=== PATIENT | male | born 1925 | race Caucasian/White ===

== ENCOUNTER 2016-03-18 15:08 | Inpatient (IN) | payer MEDICARE ==
[~2016-03-18] VITALS: Ht 175.3 cm; Wt 90.5 kg
[~2016-03-18 15:08] MED LIST: ALPH0.1S RIGHT EYE; ASPI1TAB7; ATOR40TA PO; AVOD0.5C PO; CALCTAB70; EVENCAP2 PO; FLUT1SPR9; FOLITAB5; ISOS30TA3 PO; LEVO112T2 PO; METF-324 PO; TIMO0.5S4 EACH EYE; TRAZ50TA4 PO; VITA400C28; [UNRECOGNIZED DRUG - OTHER] XX
[2016-03-18] MEDS ORDERED: MORPHINE SULFATE 4 MG/ML INJ IV PUSH ONE ×2 (15:15→17:15)
[2016-03-18] MEDS ORDERED: ONDANSETRON HCL 4 MG/2 ML VIAL IVP ONE (15:15)
[2016-03-18] MEDS ORDERED: SODIUM CHLORIDE 0.9% FLUSH 5 ML FLUSH IVF PRN (15:15)
[2016-03-18 15:16] VITALS: BP 144/73; PULSE 75; RESP 15; TEMP 97.5; O2SAT 93
--- NOTE | 2016-03-18 15:48 | PD ---
HPI . Abdominal pain Chief Complaint: Abdominal Pain Time Seen by Provider: 15:11 Travel History International Travel<30 days: No Contact w/Intl Traveler<30days: No Traveled to known affect area: No History of Present Illness HPI Patient presents by [facility] chief complaint of abdominal pain. Patient states that it started after eating lunch today and has gotten progressively worse. He describes cramping. He has had some associated nausea and vomiting. He denies any diarrhea or change in bowel habits. He has not been running a fever. He denies a previous similar history. He denies any urinary tract symptoms such as area, frequency or urgency. PFSH Social History Tobacco Use: No Allergies-Medications (Allergen,Severity, Reaction): Coded Allergies: No Known Allergies (Unverified , 03/20/15) Reported Meds & Prescriptions Reported Meds & Active Scripts Active Isosorbide Mononitrate Er (Isosorbide Mononitrate) 30 Mg Tab 30 Mg PO DAILY Flonase Allergy Relief (Fluticasone Propionate (Nasal)) 50 Mcg/Act Spr 2 [place] NA DAILY Atorvastatin 40 mg (Atorvastatin Calcium) 40 Mg Tab 40 Mg PO HS Metformin ER 24 HR (Metformin HCl) 1,000 Mg Tab 1,000 Mg PO DAILY Levothyroxine 112 mcg (Levothyroxine Sodium) 112 Mcg Tab 1 Tab PO DAILY Avodart (Dutasteride) 0.5 Mg Cap 0.5 Mg PO HS [Spa ] 1 Units XX DAILY Timolol Maleate Ophthalmi (Timolol Maleate) 0.5 % Magy 1 Drop EACH EYE DAILY Trazodone Hcl (Trazodone HCl) 50 Mg Tab 50 Mg PO HS PRN Alphagan P (Brimonidine Tartrate) 0.1 % Magy 1 Drop RIGHT EYE BID Reported Evening [place] (Evening [place] Oil) 500 Mg Cap 1,000 Mg PO Vitamin D (Cholecalciferol) 400 Unit Cap WEEKLY Calcium 600 + D (Calcium Carbonate-Vitamin D) + D Tab DAILY Folic Acid Xtra (Folic Acid-Vit B2-Vit B6-Vit B) Xtra Tab 800 Mcg DAILY Aspirin 81 mg Tab (Aspirin) 81 Mg Tab DAILY Review of Systems Except as stated in HPI: all other systems reviewed are Neg General / Constitutional: No: Fever, Chills Cardiovascular: No: Chest Pain or Discomfort Respiratory: No: Shortness of Breath Gastrointestinal: Positive: Nausea, Vomiting, Abdominal Pain, No: Diarrhea, Constipation, Changes in Bowel Habits Genitourinary: No: Urgency, Frequency, Dysuria Physical Exam Narrative GENERAL: This is an elderly man who appears in obvious pain. SKIN: Warm and dry. HEAD: Atraumatic. Normocephalic. EYES: Pupils equal and round. ENT: No nasal bleeding or discharge. Mucous membranes pink and moist. NECK: Trachea midline. Neck supple. CARDIOVASCULAR: Regular rate and rhythm. RESPIRATORY: No accessory muscle use. Lungs are clear with good air movement throughout. GASTROINTESTINAL: Abdomen has a palpable, tender mass in the right upper quadrant. It is not pulsatile. I do not hear any unusual bowel sounds over the mass. MUSCULOSKELETAL: No obvious deformities. 1+ edema. NEUROLOGICAL: Awake and alert. No obvious cranial nerve deficits. Motor grossly within normal limits. Normal speech. PSYCHIATRIC: Appropriate mood and affect. Data Data Last Documented VS Vital Signs Date Time Temp Pulse Resp B/P Pulse Ox O2 Delivery O2 Flow Rate FiO2 03/18/16 15:16 97.5 75 15 144/73 93 Orders Complete Blood Count With Diff (03/18/16 15:11) Comprehensive Metabolic Panel (03/18/16 15:11) Lipase (03/18/16 15:11) Lactic Acid (03/18/16 15:11) Prothrombin Time / Inr (Pt) (03/18/16 15:11) Urinalysis - C+S If Indicated (03/18/16 15:11) Ct Abd/Pel W/O Iv Contrast (03/18/16 15:11) Iv Access Insert/Monitor (03/18/16 15:11) Ecg Monitoring (03/18/16 15:11) Oximetry (03/18/16 15:11) NPO (03/18/16 15:11) Morphine Inj (Morphine Inj) (03/18/16 15:15) Ondansetron Inj (Zofran Inj) (03/18/16 15:15) Sodium Chloride 0.9% Flush (Ns Flush) (03/18/16 15:15) Electrocardiogram (03/18/16 15:11) ^ Saline Lock (03/18/16 15:14) Sodium Chlor 0.9% 1000 Ml Inj (Ns 1000 M (03/18/16 17:15) Morphine Inj (Morphine Inj) (03/18/16 17:15) Insert Ng Tube (03/18/16 17:13) Admit Order (Ed Use Only) (03/18/16 17:37) Labs Laboratory Tests Test 03/18/16 15:25 White Blood Count 14.4 TH/MM3 Red Blood Count 4.63 MIL/MM3 Hemoglobin 14.2 GM/DL Hematocrit 41.6 % Mean Corpuscular Volume 89.8 FL Mean Corpuscular Hemoglobin 30.6 PG Mean Corpuscular Hemoglobin 34.0 % Concent Red Cell Distribution Width 13.4 % Platelet Count 166 TH/MM3 Mean Platelet Volume 7.6 FL Neutrophils (%) (Auto) 86.1 % Lymphocytes (%) (Auto) 9.3 % Monocytes (%) (Auto) 4.2 % Eosinophils (%) (Auto) 0.2 % Basophils (%) (Auto) 0.2 % Neutrophils # (Auto) 12.4 TH/MM3 Lymphocytes # (Auto) 1.3 TH/MM3 Monocytes # (Auto) 0.6 TH/MM3 Eosinophils # (Auto) 0.0 TH/MM3 Basophils # (Auto) 0.0 TH/MM3 CBC Comment DIFF FINAL Differential Comment Prothrombin Time 11.4 SEC Prothromb Time International 1.0 RATIO Ratio Sodium Level 134 MEQ/L Potassium Level 4.0 MEQ/L Chloride Level 97 MEQ/L Carbon Dioxide Level 30.9 MEQ/L Anion Gap 6 MEQ/L Blood Urea Nitrogen 14 MG/DL Creatinine 0.71 MG/DL Estimat Glomerular Filtration 104 ML/MIN Rate Random Glucose 195 MG/DL Lactic Acid Level 1.4 mmol/L Calcium Level 8.5 MG/DL Total Bilirubin 1.2 MG/DL Aspartate Amino Transf 21 U/L (AST/SGOT) Alanine Aminotransferase 40 U/L (ALT/SGPT) Alkaline Phosphatase 71 U/L Total Protein 6.4 GM/DL Albumin 3.6 GM/DL Lipase 132 U/L MDM Medical Decision Making Medical Screen Exam Complete: Yes Emergency Medical Condition: Yes Medical Record Reviewed: Yes (the patient has actually never been in the emergency department or the hospital before. He's only been seen in the clinics.) Interpretation(s) EKG shows a sinus rhythm with a right bundle branch block. 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 This is unchanged from previous. There is no acute ischemic or injury. Differential Diagnosis Differential diagnosis of abdominal pain includes but is not limited to gastritis, pancreatitis, hepatitis, gastroenteritis, constipation, urinary retention, UTI, peptic ulcer disease, diverticulitis or appendicitis Narrative Course Elderly man presents with the acute onset of abdominal pain today. He has a palpable mass in the right upper quadrant. I suspect that this is a hernia. 5:[address] scan been reviewed. It shows: "There has been previous partial gastrectomy. There is moderate dilation of multiple small bowel loops mainly clustered in the right upper quadrant and in the pelvis. The colon is decompressed and there are also some nondilated pelvic small bowel loops. There appears to be some focal angular twisting or kinking of small bowel in the central abdomen with appearance most suggestive of either an adhesion or internal hernia producing obstruction. There is a small volume of free fluid. No evidence of pneumoperitoneum." I will go ahead and consult surgery. The patient remains in the ambulance entrance where we have very little staff to care for him. CBC has an H&H of 14.2 and 41.6. White blood count is 14.4. Chemistries are unremarkable. Lactic acid is 1.4. Critical Care Narrative Aggregate critical care time was 30 minutes. Time to perform other separately billable procedures was not included in the critical care time. My time did not include minutes spent treating any other patients simultaneously or on activities that did not directly contribute to the patient's treatment. The services I provided to this patient were to treat and/or prevent clinically significant deterioration that could result in: Cardiovascular collapse if this mass turns out to be a AAA I provided critical care services requiring my management, as noted below: Chart data review, documentation time, medication orders and management, vital sign assessments/reviewing monitor data, ordering and reviewing lab tests, ordering and interpreting/reviewing x-rays and diagnostic studies, care of the patient and discussion of the patient with the admitting physicians. Physician Communication Physician Communication 5:[address] Cordon has been consult. He requested hospitalist admission with him as a student union consultant. Dr. Verma has subsequently admitted the patient. Diagnosis Primary Impression: Small bowel obstruction Admitting Information Admitting Physician Requests: Admit Condition: Stable Ayana Sanchez MD Mar 18, 2016 15:48
[2016-03-18 15:52] LABS: AUTOMATED NEUTROPHIL # 12.4 TH/MM3 (1.8-7.7); BASOPHIL % 0.2 % (0.0-2.0); EOSINOPHIL % 0.2 % (0.0-4.0); HEMATOCRIT 41.6 % (39.0-51.0); HEMO FLAGS DIFF FINAL; LYMPH % 9.3 % (9.0-44.0); LYMPHOCYTE # 1.3 TH/MM3 (1.0-4.8); MEAN CELL VOLUME 89.8 FL (80.0-100.0); MEAN CORPUSCULAR HEMOGLOBIN 30.6 PG (27.0-34.0); MONO % 4.2 % (0.0-8.0); NEUT % 86.1 % (16.0-70.0); PLATELET COUNT 166 TH/MM3 (150-450); RED BLOOD COUNT 4.63 MIL/MM3 (4.50-5.90); RED CELL DISTRIBUTION WIDTH 13.4 % (11.6-17.2); WHITE BLOOD COUNT 14.4 TH/MM3 (4.0-11.0)
[2016-03-18 16:10] LABS: ANION GAP 6 MEQ/L (5-15); AST (GOT) 21 U/L (15-37); BICARBONATE 30.9 MEQ/L (21.0-32.0); BLOOD UREA NITROGEN 14 MG/DL (7-18); CHLORIDE 97 MEQ/L (98-107); GLOMERULAR FILTRATION RATE 104 ML/MIN (>89); PROTHROMBIN TIME - PATIENT 11.4 SEC (9.8-11.6); SODIUM (NA) 134 MEQ/L (136-145)
[2016-03-18 16:14] LABS: ALKALINE PHOSPHATASE 71 U/L (45-117); ALT (GPT) 40 U/L (12-78); TOTAL BILIRUBIN ADULT 1.2 MG/DL (0.2-1.0)
--- NOTE | 2016-03-18 16:57 | RADRPT ---
EXAM DATE/TIME: 03/18/2016 16:24 [facility] COMPARISON: No previous studies available for comparison. INDICATIONS : Epigastric pain and RUQ mass. Eval aorta. ORAL CONTRAST: No oral contrast ingested. RADIATION DOSE: 10.98 CTDIvol (mGy) MEDICAL HISTORY : Carcinoma, gastric. SURGICAL HISTORY : Stomach surgery to remove cancer. ENCOUNTER: Initial ACUITY: 1 day PAIN SCALE: 6/10 LOCATION: Right upper quadrant TECHNIQUE: Volumetric scanning of the abdomen and pelvis was performed. Using automated exposure control and ad justment of the mA and/or kV according to patient size, radiation dose was kept as low as reasonably achievable to obtain optimal diagnostic quality images. FINDINGS: LOWER LUNGS: The visualized lower lungs are clear. LIVER: Homogeneous density without lesion. There is no dilation of the biliary tree. Gallbladder surgically absent.. SPLEEN: Normal size without lesion. PANCREAS: Within normal limits. KIDNEYS: Exophytic cyst arising from the posterior apex of the left kidney. No evidence of stone or hydronephr osis. ADRENAL GLANDS: Within normal limits. VASCULAR: There is no aortic aneurysm. BOWEL/MESENTERY: There has been previous partial gastrectomy. There is moderate dilation of multiple small bowel loops mainly clustered in the right upper quadrant and in the pelvis. The colon is decompressed and there are also some nondilated pelvic small bowel loops. There appears to be some focal angular twisting or kinking of small bowel in the central abdomen with appearance most suggestive of either an adhesion or internal hernia producing obstruction. There is a small volume of free fluid. No evidence of pneum operitoneum. ABDOMINAL WALL: Extensive previous ventral mesh hernia repair RETROPERITONEUM: There is no lymphadenopathy. BLADDER: No wall thickening or mass. REPRODUCTIVE: Within normal limits. INGUINAL: There is no lymphadenopathy or hernia. MUSCULOSKELETAL: Degenerative changes in the spine. Previous kyphoplasty. CONCLUSION: Small bowel obstruction. Berlin Metzger MD on March 18, 2016 at 16:48 Board Certified Radiologist. This report was verified electronically.
[2016-03-18] MEDS ORDERED: SODIUM CHLOR 0.9% 1000 ML INJ 1,000 ML IV ONE (17:15)
--- NOTE | 2016-03-18 18:42 | HHI.HP ---
[facility] Unknown Admission Diagnosis small bowel obstruction Diagnoses: (1) Small bowel obstruction (2) Diabetes Chief Complaint: Abdominal pain Travel History International Travel<30 Days: No Contact w/Intl Traveler <30 Da: No Traveled to Known Affected Are: No History of Present Illness 89-year-old male with a history of diabetes, prior abdominal surgeries was brought to the ED for evaluation of an acute onset of abdominal pain patient rated 10 out of 10 in intensity him a which started after eating breakfast today and got progressively worse throughout the day. He had episode of nausea along with vomiting however nonbilious. There was no associated chest pain or shortness of breath. He denies any bowel change although today he didn't have any bowel movements and patient denies any flatus. There is no GI bleed. Review of Systems Other Order 12 systems are negative except for the one mentioned in history of present illness Past Family Social History Past Medical History right eye hit by a baseball which caused a traumatic cataract and right eye iris fixed dilated position 1979 bilateral macular degeneration 1997 bilateral peripheral neuropathy 2001 diabetes 2001 hypothyroidism sepsis 2006 prostate cancer 2013 involving 5% of the prostate basal cell carcinoma 2013 Bilateral knee osteoarthritis Past Surgical History tonsillectomy 1930 inguinal hernia repair 1946 basal cell carcinoma 1967, 1999 duodenal stomach ulcer removal, vagotomy, and cholecystectomy 1974 direct inguinal hernia repair 1975 traumatic cataract surgery in 1979 (see above) right hydrocele surgery 1982 cataract surgery on left is lens implant 1995 multiple benign growth removed during past colonoscopies laser eye surgery for macular degeneration 1999 perforated gastric ulcer which was found to be gastric cancer 2002. Received chemotherapy (x6), and abbreviation (x5 weeks). gastric ulcer removal, removal of two lymph nodes with metastatic disease 2002 abdominal hernia repair with mesh 2003 and revision due to bowel obstruction later 2004 balloon kyphoplasty L2 2004 bilateral eye pressure releasing surgery 2005 Removal of benign bladder mass 2014 Reported Medications Isosorbide Mononitrate Er (Isosorbide Mononitrate) 30 Mg Tab 30 Mg PO DAILY Flonase Allergy Relief (Fluticasone Propionate (Nasal)) 50 Mcg/Act Spr 2 [place] NA DAILY Atorvastatin 40 mg (Atorvastatin Calcium) 40 Mg Tab 40 Mg PO HS Metformin ER 24 HR (Metformin HCl) 1,000 Mg Tab 1,000 Mg PO DAILY Levothyroxine 112 mcg (Levothyroxine Sodium) 112 Mcg Tab 1 Tab PO DAILY Avodart (Dutasteride) 0.5 Mg Cap 0.5 Mg PO HS [Spa ] 1 Units XX DAILY Timolol Maleate Ophthalmi (Timolol Maleate) 0.5 % Magy 1 Drop EACH EYE DAILY Trazodone Hcl (Trazodone HCl) 50 Mg Tab 50 Mg PO HS PRN Alphagan P (Brimonidine Tartrate) 0.1 % Magy 1 Drop RIGHT EYE BID Reported Evening [place] (Evening [place] Oil) 500 Mg Cap 1,000 Mg PO Vitamin D (Cholecalciferol) 400 Unit Cap WEEKLY Calcium 600 + D (Calcium Carbonate-Vitamin D) + D Tab DAILY Folic Acid Xtra (Folic Acid-Vit B2-Vit B6-Vit B) Xtra Tab 800 Mcg DAILY Aspirin 81 mg Tab (Aspirin) 81 Mg Tab DAILY Allergies: Coded Allergies: No Known Allergies (Unverified , 03/18/16) Family History No family history of cancer, diabetes Social History Denies any alcohol, tobacco or illicit drug intake. Physical Exam Vital Signs Vital Signs Date Time Temp Pulse Resp B/P Pulse Ox O2 Delivery O2 Flow Rate FiO2 03/18/16 15:16 97.5 75 15 144/73 93 Physical Exam GENERAL: Elderly man in mild distress SKIN: No rashes, ecchymoses or lesions. Cool and dry. HEAD: Atraumatic. Normocephalic. No temporal or scalp tenderness. EYES: Pupils equal round and reactive. Extraocular motions intact. No scleral icterus. No injection or drainage. ENT: Nose without bleeding, purulent drainage or septal hematoma. Throat without erythema, tonsillar hypertrophy or exudate. Uvula midline. Airway patent. NECK: Trachea midline. No JVD or lymphadenopathy. Supple, nontender, no meningeal signs. CARDIOVASCULAR: Regular rate and rhythm with II/ LILY RESPIRATORY: Clear to auscultation. Breath sounds equal bilaterally. No wheezes , rales, or rhonchi. GASTROINTESTINAL: Abdomen soft, non-tender, nondistended. No hepato-splenomegaly , or palpable masses. No guarding. Hypoactive bowel sounds MUSCULOSKELETAL: Extremities without clubbing, cyanosis, or edema. No joint tenderness, effusion, or edema noted. No calf tenderness. Negative Homans sign bilaterally. NEUROLOGICAL: Awake and alert. Cranial nerves II through XII intact. Motor and sensory grossly within normal limits. Five out of 5 muscle strength in all muscle groups. Normal speech. Laboratory Laboratory Tests Test 03/18/16 15:25 White Blood Count 14.4 Red Blood Count 4.63 Hemoglobin 14.2 Hematocrit 41.6 Mean Corpuscular Volume 89.8 Mean Corpuscular Hemoglobin 30.6 Mean Corpuscular Hemoglobin 34.0 Concent Red Cell Distribution Width 13.4 Platelet Count 166 Mean Platelet Volume 7.6 Neutrophils (%) (Auto) 86.1 Lymphocytes (%) (Auto) 9.3 Monocytes (%) (Auto) 4.2 Eosinophils (%) (Auto) 0.2 Basophils (%) (Auto) 0.2 Neutrophils # (Auto) 12.4 Lymphocytes # (Auto) 1.3 Monocytes # (Auto) 0.6 Eosinophils # (Auto) 0.0 Basophils # (Auto) 0.0 CBC Comment DIFF FINAL Differential Comment Prothrombin Time 11.4 Prothromb Time International 1.0 Ratio Sodium Level 134 Potassium Level 4.0 Chloride Level 97 Carbon Dioxide Level 30.9 Anion Gap 6 Blood Urea Nitrogen 14 Creatinine 0.71 Estimat Glomerular Filtration 104 Rate Random Glucose 195 Lactic Acid Level 1.4 Calcium Level 8.5 Total Bilirubin 1.2 Aspartate Amino Transf 21 (AST/SGOT) Alanine Aminotransferase 40 (ALT/SGPT) Alkaline Phosphatase 71 Total Protein 6.4 Albumin 3.6 Lipase 132 Result Diagram: 03/18/16 1525 03/18/16 1525 Imaging Last Impressions Abdomen/Pelvis CT 03/18/16 1511 Signed Impressions: Service Date/Time: March 16:24 - CONCLUSION: Small bowel obstruction. Berlin Metzger MD Assessment and Plan Problem List: (1) Small bowel obstruction ICD Code: K56.69 Status: Acute (2) Diabetes ICD Code: E11.9 Status: Acute Assessment and Plan 89-year-old male with Small bowel obstruction: CT abdomen noted and reviewed by me with finding of Small bowel obstruction. Consult general surgery. Keep nothing by mouth, IV fluid hydration, and place NG tube. Start IV antibiotics including Flagyl and Levaquin. IV Pain medication/antiemetic when necessary Leukocytosis: Secondary to above process and treat as such Diabetes type 2: Hold oral hypoglycemic agent, start low sliding scale insulin with fingerstick blood glucose monitoring Hypertension: Vasotec when necessary, will resume oral antihypertensive 1 patient able to take by mouth Other chronic medical conditions: Resume outpatient medication 1 patient able to tolerate by mouth DVT prophylaxis: Bilateral SCDs GI prophylaxis: PPI Code Status Full code Discussed Condition With Patient, ED physician Physician Certification 2 Midnight Certification Type: Admission for Inpatient Services Order for Inpatient Services The services are ordered in accordance with Medicare regulations or non- Medicare payer requirements, as applicable. In the case of services not specified as inpatient-only, they are appropriately provided as inpatient services in accordance with the 2-midnight benchmark. Estimated LOS (days): 2 days is the estimated time the patient will need to remain in the hospital, assuming treatment plan goals are met and no additional complications. Post-Hospital Plan: Not yet determined Roland Verma MD Mar 18, 2016 18:42
[2016-03-18] MEDS ORDERED: ACETAMINOPHEN 325 MG TAB PO PRN (18:45)
[2016-03-18] MEDS ORDERED: NALOXONE HCL 0.4 MG/ML AMP IV PRN (18:45)
[2016-03-18] MEDS ORDERED: SODIUM CHLORIDE 0.9% FLUSH 5 ML FLUSH FLUSH PRN (18:45)
[2016-03-18] MEDS ORDERED: GLUCAGON 1 MG/ML VIAL OTHER PRN (18:45)
[2016-03-18] MEDS ORDERED: DEXTROSE 50% IN WATER 50 ML VIAL(D50) IV PUSH PRN (18:45)
[2016-03-18] MEDS ORDERED: ENALAPRILAT 1.25 MG/ML VIAL IV PUSH PRN (19:00)
[2016-03-18] MEDS ORDERED: FLUT50SP EACH NARE (21:07)
[2016-03-18] MEDS ORDERED: SYNT112T PO (21:07)
[2016-03-18] MEDS ORDERED: ISOS20TA PO (21:07)
[2016-03-18] MEDS ORDERED: CICL8KIT3 TOPICAL (21:07)
[2016-03-18] MEDS ORDERED: FLUO20CA4 PO (21:07)
[2016-03-18] MEDS ORDERED: TIMO0.254 RIGHT EYE (21:07)
[2016-03-18] MEDS ORDERED: DUTA1CAP2 PO (21:07)
[2016-03-18] MEDS ORDERED: ALPH0.1S RIGHT EYE (21:07)
[2016-03-18 21:11] VITALS: BP 130/69; PULSE 86; RESP 14; TEMP 98; O2SAT 98
[2016-03-18] MEDS ORDERED: PRESCAP5 PO (21:11)
[2016-03-18] MEDS ORDERED: FOLI1CAP7 PO (21:11)
[2016-03-18] MEDS ORDERED: ASPI-110 PO (21:11)
[2016-03-18] MEDS ORDERED: D400400C (21:11)
[2016-03-18] MEDS ORDERED: CALCTAB23 PO (21:11)
[2016-03-18] MEDS ORDERED: EVEN500C3 PO (21:11)
[2016-03-18] MEDS ORDERED: SAW160TA PO (21:11)
[2016-03-18] MEDS: SODIUM CHLORIDE 0.9% FLUSH 5 ML FLUSH FLUSH SCH (21:38)
[2016-03-18] MEDS: SODIUM CHLOR 0.9% 1000 ML INJ 1,000 ML IV SCH (21:38)
[2016-03-18] MEDS: INSULIN ASPART SUPPLEMENTAL SCALE SQ SCH (21:38)
[2016-03-18] MEDS: metroNIDAZOLE 500 MG INJ 100 ML IV SCH (21:39)
[2016-03-18 22:10] VITALS: BP 108/66; PULSE 62; RESP 12; O2SAT 96
[2016-03-18 23:00] VITALS: BP 112/68; PULSE 82; RESP 16; O2SAT 100
--- NOTE | 2016-03-18 23:20 | MB ---
cc: ELIUD SALCIDO MD DATE OF CONSULTATION 03/18/16 REASON FOR CONSULTATION Small bowel obstruction. HISTORY OF PRESENT ILLNESS The patient is an 89-year-old male who was brought in by [facility] for increasing abdominal pain, nausea and vomiting. The patient reports having a bowel movement yesterday. He has had no previous history of this. The patient has undergone CT scan which demonstrates a small bowel obstruction in the right upper quadrant either due to an adhesion for an internal hernia. SOCIAL HISTORY The patient does not smoke or drink. ALLERGIES He has no known allergies. MEDICATIONS 1. Isosorbide mononitrate 30 mg q. day. 2. Flonase 2 sprays q. day. 3. Atorvastatin 40 mg q.h.s. 4. Metformin ER 24 hour 1000 mg daily 5. Levothyroxine 112 mcg daily. 6. Avodart 0.5 mg q.h.s. 7. Timolol 0.5% solution each eye daily. 8. Trazodone 50 mg q.h.s. 9. Alphagan 0.1% in the right eye b.i.d. 10. Aspirin 81 mg daily. 11. Calcium 600 plus D daily 12. Evening primrose oil 1000 mg daily. REVIEW OF SYSTEMS The patient has had previous abdominal surgeries. He does not remember exactly what they were, but the ER physician informed me that he had had mesh placement in the past. PAST MEDICAL HISTORY 1. Macular degeneration 2. Peripheral neuropathy, 3. Diabetes, 4. Hypothyroidism, 5. Hypercholesterolemia PAST SURGICAL HISTORY Included by Dr. Verma and include 1. Tonsillectomy 0 2. Inguinal hernia repair 1945, 3. Basal cell carcinomas removed 1966 and 1999 4. Vagotomy and partial gastrectomy in 1974 with cholecystectomy 5. Inguinal hernia repair 1975 6. Traumatic cataract surgery 1979 7. Right hydrocelectomy 1982, 8. Left cataract surgery with lens implant 1995 9. Perforated gastric ulcer which was found to be a gastric cancer in 2002 with chemotherapy and radiation 10. Gastric ulcer removal with removal of two lymph nodes and metastatic disease in 2002 11. Abdominal hernia repair with mesh in 2003 and revision due to bowel obstruction later 2003. 12. Removal of benign bladder mass in 2013. PHYSICAL EXAMINATION GENERAL: A male who is resting quietly in only mild distress. VITAL SIGNS: BP 130/69, pulse 86, respirations 14, temperature 98.0, 98% saturation on room air. HEENT: Right eye pupil is fixed. NECK: Supple. CHEST: Clear to auscultation. CARDIAC: Regular rate and rhythm. ABDOMEN: Soft but distended. There are two longitudinal incisions present and a hernia in the longitudinal incision to the right of midline. This does not appear to be incarcerated. The patient is tender to palpation diffusely but not intensely cell. There is some guarding as well. The patient does not have a Lassiter or nasogastric tube in at this time. LABORATORY DATA WBCs of 14.4, platelets are normal at 166,000. Chemistries demonstrate BUN of 14, creatinine of 0.7, potassium 4.0. Liver function tests have slightly elevated bilirubin of 1.2, AST, ALT and alkaline phosphatase are all within normal limits; lipase is normal at 132. IMAGING STUDIES Imaging demonstrates moderate dilation in multiple small bowel loops clustered in the right upper quadrant and in the pelvis. There may be some angling or kinking of the small bowel in the central abdomen suggestive of either an adhesion or an internal hernia. ASSESSMENT Small bowel obstruction likely secondary to adhesions or internal hernia. PLAN Nasogastric tube need to be placed this evening as it has still not been placed and IV fluids started. Would give the patient bowel rest and reevaluate in the morning. If he has continued persistent elevated white count with shift, worsening symptoms or failure to progress, he may require exploration. The patient may also have recurrent tumor in which case simple bypass would be the best treatment for him. We will follow with you. MD VALERY Diaz/ /10:51 PM /11:04 PM
[2016-03-19] VITALS (11 sets, daily range): BP systolic 92–120; BP diastolic 46–70; PULSE 78–91; RESP 14–18; TEMP 96.9–98.1; O2SAT 93–99
[2016-03-19 00:09] LABS: BLOOD, URINE MOD (NEG); CALCIUM OXALATE CRYSTALS,URINE OCC /hpf; COMMENT (UR) CULTURE INDICATED; CULTURE IF INDICATED CULTURE INDICATED; GLUCOSE,URINE 300 mg/dL (NEG); HYALINE CAST, URINE 17 /lpf (RARE); KETONE, URINE 10 mg/dL (NEG); MUCUS URINE MOD /lpf (OCC); NITRITE,URINE NEG (NEG); RENAL EPITHELIAL CELLS 4 /hpf; SQUAMOUS EPITHELIAL CELL URINE 8 /hpf (0-5); TRANSITIONAL EPI CELLS, URINE 1 /hpf; URINE COLOR ORANGE (YELLW/STRAW)
[2016-03-19 00:15] LABS: BACTERIA, URINE MANY /hpf
[2016-03-19] MEDS: LEVOFLOXACIN 500 MG PREMIX INJ 100 ML IV SCH ×2 (00:43→20:49)
[2016-03-19] MEDS: MORPHINE SULFATE 4 MG/ML INJ IV PRN ×2 (00:44→10:58)
[2016-03-19] MEDS: ONDANSETRON HCL 4 MG/2 ML VIAL IVP PRN ×2 (00:45→12:51)
--- NOTE | 2016-03-19 02:33 | RADRPT ---
EXAM DATE/TIME: 03/19/2016 01:53 [facility] COMPARISON: No previous studies available for comparison. INDICATIONS : Evaluate for NG tube placement. MEDICAL HISTORY : Carcinoma, gastric. SURGICAL HISTORY : Stomach surgery to remove cancer. ENCOUNTER: Subsequent ACUITY: 1 day PAIN SCORE: Non-responsive. LOCATION: Abdomen FINDINGS: Chest tube tip is projected in the left upper quadrant and the side-port is approximately at the leve l of the GE junction. Vertebroplasty cement at the L2 level. The visualized lower lungs are clear. Gas and a few loops of small bowel. CONCLUSION: Gastric tube tip within the fundal region of the stomach. Jian Kessler MD on March 19, 2016 at 2:30 Board Certified Radiologist. This report was verified electronically.
[2016-03-19 05:38] LABS: AUTOMATED NEUTROPHIL # 17.7 TH/MM3 (1.8-7.7); HEMATOCRIT 45.5 % (39.0-51.0); HEMO FLAGS DIFF FINAL; LYMPH % 6.4 % (9.0-44.0); LYMPHOCYTE # 1.3 TH/MM3 (1.0-4.8); MEAN CORPUSCULAR HEMOGLOBIN 30.3 PG (27.0-34.0); MEAN CORPUSCULAR HGB CONC 33.7 % (32.0-36.0); MONO % 8.7 % (0.0-8.0); NEUT % 84.9 % (16.0-70.0); PLATELET COUNT 176 TH/MM3 (150-450); RED BLOOD COUNT 5.05 MIL/MM3 (4.50-5.90); RED CELL DISTRIBUTION WIDTH 13.4 % (11.6-17.2); WHITE BLOOD COUNT 20.9 TH/MM3 (4.0-11.0)
[2016-03-19] MEDS: LEVOTHYROXINE SODIUM 112 MCG TAB PO SCH (05:51)
[2016-03-19] MEDS: metroNIDAZOLE 500 MG INJ 100 ML IV SCH ×3 (05:55→20:50)
[2016-03-19 06:11] LABS: ALKALINE PHOSPHATASE 67 U/L (45-117); ALT (GPT) 35 U/L (12-78); ANION GAP 10 MEQ/L (5-15); AST (GOT) 24 U/L (15-37); BICARBONATE 25.9 MEQ/L (21.0-32.0); BLOOD UREA NITROGEN 29 MG/DL (7-18); CHLORIDE 99 MEQ/L (98-107); GLOMERULAR FILTRATION RATE 45 ML/MIN (>89); SODIUM (NA) 135 MEQ/L (136-145); TOTAL BILIRUBIN ADULT 1.4 MG/DL (0.2-1.0)
--- NOTE | 2016-03-19 06:47 | RADRPT ---
EXAM DATE/TIME: 03/19/2016 06:16 [facility] COMPARISON: ABDOMEN SINGLE VIEW, March 19, 2016, 1:53. INDICATIONS : Distention. MEDICAL HISTORY : Carcinoma, gastric. SURGICAL HISTORY : Stomach surgery to remove a cancer. ENCOUNTER: Subsequent ACUITY: 2 days PAIN SCORE: Non-responsive. LOCATION: abdomen, all quadrants. FINDINGS: There are several dilated loops of small bowel located in the lower abdomen midline and on the left s james which are more prominent on KUB performed several hours ago. The loops measure up to 5 cm in portia meter. Vertebroplasty cement at the L2 level. Gastric tube tip projects over the fundal region of t he stomach. CONCLUSION: Changed appearance to several loops of small bowel in the low abdomen, now dilated and measuring up t o 5 cm in diameter. Jian Kessler MD on March 19, 2016 at 6:44 Board Certified Radiologist. This report was verified electronically.
[2016-03-19] MEDS: ISOSORBIDE MONONITRATE 20 MG TAB PO SCH (07:00)
[2016-03-19] MEDS: INSULIN ASPART SUPPLEMENTAL SCALE SQ SCH ×4 (07:00→20:49)
[2016-03-19] MEDS: FLUoxetine HCL 20 MG CAP PO SCH (09:00)
[2016-03-19] MEDS: SODIUM CHLORIDE 0.9% FLUSH 5 ML FLUSH FLUSH SCH ×2 (09:00→20:48)
[2016-03-19] MEDS: TIMOPTIC XE RIGHT EYE SCH (09:00)
[2016-03-19] MEDS: BRIMONIDINE TARTRATE 0.15% OPHT SOLN 5 ML BTL RIGHT EYE SCH ×2 (09:00→21:00)
[2016-03-19] MEDS: LACTOBACILLUS ACIDOPHILUS TAB PO SCH ×2 (09:00→20:49)
--- NOTE | 2016-03-19 09:13 | HHI.PR ---
Subjective Remarks Follow-up small bowel obstruction 03/19/16-patient seen and examined, complains of mild abdominal pain. NG tube in place. Worsening white blood cell counts and renal function. Son by the bedside. Objective Vitals Vital Signs Date Time Temp Pulse Resp B/P Pulse Ox O2 Delivery O2 Flow Rate FiO2 03/19/16 07:27 91 16 92/53 95 Room Air 03/19/16 05:57 83 17 102/70 96 Nasal Cannula 2 03/19/16 05:08 80 16 94/50 96 Nasal Cannula 2 03/19/16 04:10 78 16 103/55 95 Nasal Cannula 2 03/19/16 02:05 82 14 98/58 98 Nasal Cannula 2 03/19/16 00:29 84 14 106/66 99 Room Air 03/18/16 23:00 82 16 112/68 100 Room Air 03/18/16 22:10 62 12 108/66 96 Room Air 03/18/16 21:11 98.0 86 14 130/69 98 Room Air 03/18/16 15:16 97.5 75 15 144/73 93 Result Diagram: 03/19/16 0459 03/19/16 0459 Imaging Last Impressions Abdomen X-Ray 03/19/16 0600 Signed Impressions: Service Date/Time: Saturday, March 19, 2016 06:16 - CONCLUSION: Changed appearance to several loops of small bowel in the low abdomen, now dilated and measuring up to 5 cm in diameter. Jian Kessler MD Abdomen/Pelvis CT 03/18/16 1511 Signed Impressions: Service Date/Time: March 16:24 - CONCLUSION: Small bowel obstruction. Berlin Metzger MD Objective Remarks GENERAL: Mild distress with NG tube in place SKIN: Warm and dry. HEAD: Normocephalic. EYES: No scleral icterus. No injection or drainage. NECK: Supple, trachea midline. No JVD or lymphadenopathy. CARDIOVASCULAR: Regular rate and rhythm with II/ LILY RESPIRATORY: Breath sounds equal bilaterally. No accessory muscle use. GASTROINTESTINAL: Abdomen soft, + tender, nondistended. Hypoactive bowel sounds MUSCULOSKELETAL: No cyanosis, or edema. BACK: Nontender without obvious deformity. No CVA tenderness. A/P Problem List: (1) Small bowel obstruction ICD Code: K56.69 Status: Acute (2) Diabetes ICD Code: E11.9 Status: Acute Assessment and Plan 89-year-old male with Small bowel obstruction: CT abdomen with finding of Small bowel obstruction. Repeat flat and upright this morning with finding of Changed appearance to several loops of small bowel in the low abdomen, now dilated and measuring up to 5 cm in diameter. Appreciate input from general surgery may consider exploratory lap with NICOLE today 03/19/16 as patient with worsening condition. Keep nothing by mouth with NG tube in place, IV fluid hydration. Continue IV antibiotics including Flagyl and Levaquin. IV Pain medication/antiemetic when necessary Leukocytosis: Worsening; Secondary to above process and treat as such Mild acute renal failure: Prerenal, secondary to GI loss through NG tube; continue gentle IV fluid hydration however increase rate to 125cc/hr and monitor BUN and creatinine Hyperkalemia: Likely secondary to GI loss, Repeat potassium and treat for K>5.6 Diabetes type 2: Hold oral hypoglycemic agent, change to medium sliding scale insulin with fingerstick blood glucose monitoring Hypertension: Vasotec when necessary, will resume oral antihypertensive when patient able to take by mouth Other chronic medical conditions: Resume outpatient medication when patient able to tolerate by mouth DVT prophylaxis: Bilateral SCDs GI prophylaxis: PPI Roland Verma MD Mar 19, 2016 09:13
[2016-03-19] MEDS ORDERED: DEXTROSE 50% IN WATER 50 ML VIAL(D50) IV PUSH PRN (09:15)
[2016-03-19] MEDS ORDERED: GLUCAGON 1 MG/ML VIAL OTHER PRN (09:15)
--- NOTE | 2016-03-19 09:21 | RADRPT ---
EXAM DATE/TIME: 03/19/2016 08:41 [facility] COMPARISON: No previous studies available for comparison. INDICATIONS : Nausea and no bowel movements for 2 days. MEDICAL HISTORY : Carcinoma, gastric. SURGICAL HISTORY : Cholecystectomy. Gastrectomy. Inguinal hernia repair, left. Hernia netting. ENCOUNTER: Subsequent ACUITY: 2 days PAIN SCORE: 4/10 LOCATION: Bilateral abdomen. FINDINGS: Comparison is a film from earlier today. There is persistent gaseous distention of small bowel with m ultiple air-fluid levels most characteristic of a small bowel obstruction. No free air identified. NG tip is around GE junction. There is previous ventral hernia repair, cholecystectomy. No acute bony a bnormalities. Previous kyphoplasty at L2. CONCLUSION: 1. Dilated loops of small bowel with air-fluid levels characteristic of small bowel obstruction, domenica lar to earlier exam. No free air identified. NG tip around GE junction. Carlyle Colunga MD on March 19, 2016 at 9:11 Board Certified Radiologist. This report was verified electronically.
[2016-03-19] MEDS: SODIUM CHLOR 0.9% 1000 ML INJ 1,000 ML IV SCH ×3 (09:51→17:20)
--- NOTE | 2016-03-19 14:29 | EKG ---
Date Performed: 03/18/2016 Time Performed: 16:14:00 PTAGE: 89 years EKG: Sinus rhythm RIGHT BUNDLE BRANCH BLOCK LEFT ANTERIOR FASCICULAR BLOCK ABNORMAL ECG NO PREVIOUS TRACING DOCTOR: Eveline Landrum Interpretating Date/Time 03/19/2016 14:22:37
--- NOTE | 2016-03-19 18:48 | HHI.PR ---
Subjective Subjective Notes Resting quietly NG in place Objective Vitals/I&O Vital Signs Date Time Temp Pulse Resp B/P Pulse Ox O2 Delivery O2 Flow Rate FiO2 03/19/16 16:20 86 16 99/57 95 03/19/16 16:00 96.9 03/19/16 14:32 Room Air 03/19/16 05:57 2 Labs Laboratory Tests Test 03/18/16 03/19/16 03/19/16 23:43 04:59 10:19 Urine Color ORANGE Urine Turbidity CLOUDY Urine pH 6.0 Urine Specific Lewis 1.023 Urine Protein 100 Urine Glucose (UA) 300 Urine Ketones 10 Urine Occult Blood MOD Urine Nitrite NEG Urine Bilirubin NEG Urine Urobilinogen 2.0 Urine Leukocyte Esterase LARGE Urine RBC 23 Urine WBC Urine WBC Clumps MANY Urine Squamous Epithelial 8 Cells Urine Transitional Epithelial 1 Cells Urine Renal Epithelial Cells 4 Urine Calcium Oxalate Crystals OCC Urine Bacteria MANY Urine Hyaline Casts 17 Urine Mucus MOD Urine Yeast (Budding) Microscopic Urinalysis Comment CULTURE INDICATED White Blood Count 20.9 Red Blood Count 5.05 Hemoglobin 15.3 Hematocrit 45.5 Mean Corpuscular Volume 90.0 Mean Corpuscular Hemoglobin 30.3 Mean Corpuscular Hemoglobin 33.7 Concent Red Cell Distribution Width 13.4 Platelet Count 176 Mean Platelet Volume 8.3 Neutrophils (%) (Auto) 84.9 Lymphocytes (%) (Auto) 6.4 Monocytes (%) (Auto) 8.7 Eosinophils (%) (Auto) 0.0 Basophils (%) (Auto) 0.0 Neutrophils # (Auto) 17.7 Lymphocytes # (Auto) 1.3 Monocytes # (Auto) 1.8 Eosinophils # (Auto) 0.0 Basophils # (Auto) 0.0 CBC Comment DIFF FINAL Differential Comment Sodium Level 135 Potassium Level 6.0 5.3 Chloride Level 99 Carbon Dioxide Level 25.9 Anion Gap 10 Blood Urea Nitrogen 29 Creatinine 1.47 Estimat Glomerular Filtration 45 Rate Random Glucose 224 Calcium Level 8.1 Total Bilirubin 1.4 Aspartate Amino Transf 24 (AST/SGOT) Alanine Aminotransferase 35 (ALT/SGPT) Alkaline Phosphatase 67 Total Protein 6.1 Albumin 3.0 Date/Time Procedure Status Source Growth 03/18/16 23:43 Urine Culture - Preliminary Resulted Urine Random Urine IMMATURE GROWTH - REINCUBATE Cardiovascular: Regular Lungs: Clear Abdomen: Other (Moderate distention, tender to palpation in midabdomen) Extremities: No edema, Perfused A/P Assessment and Plan Assessment: SBO, likely secondary to adhesions Constipation with stool in much of colon UTI Plan: Continue NG suction Soap suds enemas tonight Antibiotics for UTI already started Mahesh Cordon MD Mar 19, 2016 18:48
[2016-03-19] MEDS: FINASTERIDE 5 MG TAB PO SCH (20:48)
[2016-03-20] VITALS (8 sets, daily range): BP systolic 90–138; BP diastolic 56–72; PULSE 86–99; RESP 16–22; TEMP 96.3–97.9; O2SAT 90–96
[2016-03-20] MEDS: MORPHINE SULFATE 4 MG/ML INJ IV PRN (00:17)
[2016-03-20 05:06] LABS: HEMATOCRIT 38.4 % (39.0-51.0); MEAN CELL VOLUME 90.6 FL (80.0-100.0); MEAN CORPUSCULAR HEMOGLOBIN 30.8 PG (27.0-34.0); PLATELET COUNT 143 TH/MM3 (150-450); RED BLOOD COUNT 4.23 MIL/MM3 (4.50-5.90); RED CELL DISTRIBUTION WIDTH 13.9 % (11.6-17.2); REVIEW FLAG FINAL; WHITE BLOOD COUNT 18.9 TH/MM3 (4.0-11.0)
[2016-03-20] MEDS: ISOSORBIDE MONONITRATE 20 MG TAB PO SCH (05:25)
[2016-03-20] MEDS: metroNIDAZOLE 500 MG INJ 100 ML IV SCH ×3 (05:25→20:49)
[2016-03-20] MEDS: LEVOTHYROXINE SODIUM 112 MCG TAB PO SCH (05:25)
[2016-03-20] MEDS: INSULIN ASPART SUPPLEMENTAL SCALE SQ SCH ×4 (05:26→20:52)
[2016-03-20 05:58] LABS: BICARBONATE 25.6 MEQ/L (21.0-32.0); POTASSIUM 4.8 MEQ/L (3.5-5.1)
--- NOTE | 2016-03-20 06:51 | RADRPT ---
EXAM DATE/TIME: 03/20/2016 05:55 [facility] COMPARISON: ABDOMEN FLAT & UPRIGHT, March 19, 2016, 8:41. ABDOMEN KUB ONLY, March 19, 2016, 6:16. INDICATIONS : Distention. MEDICAL HISTORY : Carcinoma, gastric. SURGICAL HISTORY : Stomach surgery to remove cancer. ENCOUNTER: Subsequent ACUITY: 3 days PAIN SCORE: Non-responsive. LOCATION: abdomen, all quadrants. FINDINGS: No multiple dilated loops of small bowel in the left hypogastric region measuring up to 5.7 cm in wid th. Bowel loops measured up to 4.6 cm on yesterday's exam. Vertebroplasty cement and L2. Calcified phleboliths left pelvis. CONCLUSION: Increasing gaseous distention of loops of small bowel in the left abdomen. Jian Kessler MD on March 20, 2016 at 6:48 Board Certified Radiologist. This report was verified electronically.
[2016-03-20] MEDS: TIMOPTIC XE RIGHT EYE SCH (09:00)
[2016-03-20] MEDS: SODIUM CHLORIDE 0.9% FLUSH 5 ML FLUSH FLUSH SCH ×2 (09:00→20:46)
[2016-03-20] MEDS: FLUoxetine HCL 20 MG CAP PO SCH (09:00)
[2016-03-20] MEDS: SODIUM CHLOR 0.9% 1000 ML INJ 1,000 ML IV SCH (09:06)
[2016-03-20] MEDS: LACTOBACILLUS ACIDOPHILUS TAB PO SCH ×2 (09:22→20:27)
[2016-03-20] MEDS: BRIMONIDINE TARTRATE 0.15% OPHT SOLN 5 ML BTL RIGHT EYE SCH ×2 (09:24→20:35)
[2016-03-20] MEDS ORDERED: NALOXONE HCL 0.4 MG/ML AMP IV PRN (10:15)
--- NOTE | 2016-03-20 10:23 | HHI.PR ---
Subjective Remarks Follow-up small bowel obstruction 03/19/16-patient seen and examined, complains of mild abdominal pain. NG tube in place. Worsening white blood cell counts and renal function. Son by the bedside. 03/20/16-patient seen and examined-some confusions and episode desats otherwise alert and denies any significant abdominal pain. Son by the bedside. NG tube in place and patient currently nothing by mouth. WBC previously trending slightly down however BUN/creatinine worsening Objective Vitals Vital Signs Date Time Temp Pulse Resp B/P Pulse Ox O2 Delivery O2 Flow Rate FiO2 03/20/16 08:17 93 03/20/16 08:00 97.7 99 22 118/57 90 03/20/16 00:30 113/57 03/20/16 00:00 96.3 86 18 90/56 93 03/19/16 20:00 98.1 81 18 120/46 94 03/19/16 16:20 86 16 99/57 95 03/19/16 16:00 96.9 83 18 100/55 93 03/19/16 14:32 86 16 93/52 95 Room Air 03/19/16 11:39 16 03/19/16 10:45 82 16 95/52 96 Room Air I/O 03/19/16 03/19/16 03/19/16 03/20/16 03/20/16 03/20/16 07:00 15:00 23:00 07:00 15:00 23:00 Intake Total 1200 ml 0 ml Output Total 75 ml Balance 1200 ml -75 ml Intake Oral 0 ml 0 ml IV Total 1200 ml Output Gastric Drainage Total 75 ml # Voids 0 2 # Bowel Movements 3 Result Diagram: 03/20/16 0406 03/20/16 0406 Imaging Last Impressions Abdomen X-Ray 03/19/16 0600 Signed Impressions: Service Date/Time: Saturday, March 19, 2016 06:16 - CONCLUSION: Changed appearance to several loops of small bowel in the low abdomen, now dilated and measuring up to 5 cm in diameter. Jian Kessler MD Abdomen/Pelvis CT 03/18/16 1511 Signed Impressions: Service Date/Time: March 16:24 - CONCLUSION: Small bowel obstruction. Belrin Metzger MD Objective Remarks GENERAL: NAD with NG tube in place SKIN: Warm and dry. HEAD: Normocephalic. EYES: No scleral icterus. No injection or drainage. NECK: Supple, trachea midline. No JVD or lymphadenopathy. CARDIOVASCULAR: Regular rate and rhythm with II/ LILY RESPIRATORY: Breath sounds equal bilaterally. No accessory muscle use. GASTROINTESTINAL: Abdomen soft, + tender, nondistended. Hypoactive bowel sounds MUSCULOSKELETAL: No cyanosis, or edema. BACK: Nontender without obvious deformity. No CVA tenderness. A/P Problem List: (1) Small bowel obstruction ICD Code: K56.69 Status: Acute (2) Diabetes ICD Code: E11.9 Status: Acute (3) UTI (urinary tract infection) ICD Code: N39.0 Status: Acute Assessment and Plan 89-year-old male with Small bowel obstruction: CT abdomen with finding of Small bowel obstruction. Repeat flat and upright this morning 03/20/16. Appreciate input from general surgery. Keep nothing by mouth with NG tube in place, IV fluid hydration. On IV antibiotics including Flagyl and Levaquin. However secondary to worsening renal function will change Levaquin to Q48H. Change IV fluid to D5 half- normal. IV Pain medication/antiemetic when necessary UTI: Proteus mirabilis ; currently on Levaquin Leukocytosis: Secondary to above process and treat as such Mild acute renal failure: Worsening ;Prerenal, secondary to GI loss through NG tube; continue gentle IV fluid hydration and monitor BUN and creatinine Hyperkalemia: Resolved Diabetes type 2: Hold oral hypoglycemic agent, on medium sliding scale insulin with fingerstick blood glucose monitoring Hypertension: Vasotec when necessary, will resume oral antihypertensive when patient able to take by mouth Other chronic medical conditions: Resume outpatient medication when patient able to tolerate by mouth DVT prophylaxis: Bilateral SCDs GI prophylaxis: PPI Roland Verma MD Mar 20, 2016 10:23
[2016-03-20] MEDS: DEXT 5%-NACL 0.45% 1000 ML INJ 1,000 ML IV SCH ×2 (10:33→16:45)
--- NOTE | 2016-03-20 11:26 | RADRPT ---
EXAM DATE/TIME: 03/20/2016 10:51 [facility] COMPARISON: ABDOMEN FLAT & UPRIGHT, March 19, 2016, 8:41. INDICATIONS : Evaluate for Obstruction. MEDICAL HISTORY : Carcinoma, gastric. SURGICAL HISTORY : Stomach surgery to remove cancer. ENCOUNTER: Subsequent ACUITY: 4 - 6 days PAIN SCORE: 0/10 LOCATION: Abdomen. FINDINGS: Stool is seen throughout the colon. Persistent gaseous distention of small bowel is noted. There is no free air. CONCLUSION: 1. Interval improvement. 2. Minimal small bowel distention persists. Tyron Knight MD FACR on March 20, 2016 at 11:22 Board Certified Radiologist. This report was verified electronically.
--- NOTE | 2016-03-20 12:45 | HHI.PR ---
Subjective Subjective Notes Denies complaints, and daughter at bedside. Objective Vitals/I&O Vital Signs Date Time Temp Pulse Resp B/P Pulse Ox O2 Delivery O2 Flow Rate FiO2 03/20/16 12:00 97.0 96 19 128/62 93 03/19/16 14:32 Room Air 03/19/16 05:57 2 Labs Laboratory Tests Test 03/20/16 04:06 White Blood Count 18.9 Red Blood Count 4.23 Hemoglobin 13.0 Hematocrit 38.4 Mean Corpuscular Volume 90.6 Mean Corpuscular Hemoglobin 30.8 Mean Corpuscular Hemoglobin 34.0 Concent Red Cell Distribution Width 13.9 Platelet Count 143 Mean Platelet Volume 8.4 Sodium Level 136 Potassium Level 4.8 Chloride Level 100 Carbon Dioxide Level 25.6 Anion Gap 10 Blood Urea Nitrogen 50 Creatinine 2.90 Estimat Glomerular Filtration 21 Rate Random Glucose 195 Calcium Level 7.8 Date/Time Procedure Status Source Growth 03/18/16 23:43 Urine Culture - Preliminary Resulted Urine Random Urine Proteus Mirabilis Abdomen: Other (mildly distended, soft, minimal discomfort with palpation MALA quadrant. No rebound. Few high pitched Bss. ) A/P Assessment and Plan UTI, proteus, on abx. Ileus related to UTI, possible SBO, though minimal NG output. Had benjamin colored stools with enemas, but could not hold any fluid on repeat attempts. Plain xrays of abdomen show persistent mildly dilated sb loops in L upper quadrant, stool in colon and rectum. D/W pt RN and family. Recommend continued abx and IVFs, if no better consider UGI SBFT Cruz Grant MD Mar 20, 2016 12:45
[2016-03-20] MEDS: FINASTERIDE 5 MG TAB PO SCH (20:27)
[2016-03-20] MEDS: TIMOLOL MALEATE 0.5% OPHT SOLN 5 ML BTL RIGHT EYE SCH (20:44)
[2016-03-21] VITALS (10 sets, daily range): BP systolic 124–138; BP diastolic 56–64; PULSE 78–103; RESP 14–21; TEMP 98.7–98.9; O2SAT 94–100
[2016-03-21] MEDS ORDERED: RESP: ALBUTEROL 2.5 MG/IPRATROPIUM 0.5 MG NEB (SCH) NEB (02:53)
[2016-03-21] MEDS ORDERED: RESP: ALBUTEROL 2.5 MG/IPRATROPIUM 0.5 MG NEB (SCH) ONE (03:30)
[2016-03-21] MEDS: DEXT 5%-NACL 0.45% 1000 ML INJ 1,000 ML IV SCH ×4 (05:49→22:37)
[2016-03-21 05:50] LABS: AUTOMATED NEUTROPHIL # 13.1 TH/MM3 (1.8-7.7); BASOPHIL % 0.1 % (0.0-2.0); HEMATOCRIT 34.1 % (39.0-51.0); HEMO FLAGS DIFF FINAL; LYMPH % 4.5 % (9.0-44.0); LYMPHOCYTE # 0.7 TH/MM3 (1.0-4.8); MEAN CELL VOLUME 90.9 FL (80.0-100.0); MEAN CORPUSCULAR HGB CONC 34.1 % (32.0-36.0); MONO % 10.8 % (0.0-8.0); NEUT % 84.6 % (16.0-70.0); PLATELET COUNT 138 TH/MM3 (150-450); RED BLOOD COUNT 3.75 MIL/MM3 (4.50-5.90); RED CELL DISTRIBUTION WIDTH 13.8 % (11.6-17.2); WHITE BLOOD COUNT 15.5 TH/MM3 (4.0-11.0)
[2016-03-21] MEDS: metroNIDAZOLE 500 MG INJ 100 ML IV SCH ×4 (05:51→21:39)
[2016-03-21] MEDS: LEVOTHYROXINE SODIUM 112 MCG TAB PO SCH (05:54)
[2016-03-21] MEDS: ISOSORBIDE MONONITRATE 20 MG TAB PO SCH (05:54)
[2016-03-21 06:21] LABS: BICARBONATE 27.2 MEQ/L (21.0-32.0)
[2016-03-21 06:25] LABS: POTASSIUM 5.4 MEQ/L (3.5-5.1)
[2016-03-21] MEDS: INSULIN ASPART SUPPLEMENTAL SCALE SQ SCH ×4 (06:53→21:25)
[2016-03-21] MEDS: LACTOBACILLUS ACIDOPHILUS TAB PO SCH ×2 (07:56→21:00)
[2016-03-21] MEDS: FLUoxetine HCL 20 MG CAP PO SCH (07:56)
[2016-03-21] MEDS: BRIMONIDINE TARTRATE 0.15% OPHT SOLN 5 ML BTL RIGHT EYE SCH ×2 (07:57→21:23)
[2016-03-21] MEDS: TIMOLOL MALEATE 0.5% OPHT SOLN 5 ML BTL RIGHT EYE SCH ×2 (07:57→21:52)
[2016-03-21] MEDS: SODIUM CHLORIDE 0.9% FLUSH 5 ML FLUSH FLUSH SCH (08:07)
--- NOTE | 2016-03-21 09:25 | HHI.PR ---
Subjective Subjective Notes Pulled out NG last night Slightly confused Objective Vitals/I&O Vital Signs Date Time Temp Pulse Resp B/P Pulse Ox O2 Delivery O2 Flow Rate FiO2 03/21/16 08:00 98.7 88 18 130/63 98 03/21/16 03:30 Nasal Cannula 3.00 Labs Laboratory Tests Test 03/21/16 04:34 White Blood Count 15.5 Red Blood Count 3.75 Hemoglobin 11.6 Hematocrit 34.1 Mean Corpuscular Volume 90.9 Mean Corpuscular Hemoglobin 31.0 Mean Corpuscular Hemoglobin 34.1 Concent Red Cell Distribution Width 13.8 Platelet Count 138 Mean Platelet Volume 8.0 Neutrophils (%) (Auto) 84.6 Lymphocytes (%) (Auto) 4.5 Monocytes (%) (Auto) 10.8 Eosinophils (%) (Auto) 0.0 Basophils (%) (Auto) 0.1 Neutrophils # (Auto) 13.1 Lymphocytes # (Auto) 0.7 Monocytes # (Auto) 1.7 Eosinophils # (Auto) 0.0 Basophils # (Auto) 0.0 CBC Comment DIFF FINAL Differential Comment Sodium Level 135 Potassium Level 5.4 Chloride Level 101 Carbon Dioxide Level 27.2 Anion Gap 7 Blood Urea Nitrogen 53 Creatinine 2.19 Estimat Glomerular Filtration 28 Rate Random Glucose 201 Calcium Level 7.9 Date/Time Procedure Status Source Growth 03/18/16 23:43 Urine Culture - Preliminary Resulted Urine Random Urine Proteus Mirabilis Lungs: Clear Abdomen: Other (Distended, but nontender; not much change from 48hrs ago) A/P Assessment and Plan Assessment: SBO, likely secondary to adhesions Not much result with enemas UTI Plan: Discussed with patient and called son on phone; given lack of progress, recommend exploration today to relieve obstruction Antibiotics for UTI already started Mahesh Cordon MD Mar 21, 2016 09:25
[2016-03-21] MEDS ORDERED: PROPOFOL 200 MG/20 ML AMP IV ONE (12:00)
[2016-03-21] MEDS ORDERED: SODIUM CHLORID 0.9% 500 ML INJ 500 ML IV ONE (12:00)
[2016-03-21] MEDS ORDERED: NORMOSOL R INJ 3,000 ML IV ONE (12:00)
[2016-03-21] MEDS ORDERED: PHENYLEPH/NS 1000 MCG/10 ML SYR IV ONE (12:00)
[2016-03-21] MEDS ORDERED: SODIUM CHLOR 0.9% 250 ML INJ 250 ML IV ONE (12:00)
[2016-03-21] MEDS ORDERED: PROPOFOL 1000 MG/100 ML INJ 100 ML ONE (14:16)
--- NOTE | 2016-03-21 14:36 | HHI.PR ---
cc: Mahesh Cordon MD Immediate Post Op Note Procedure Date: Mar 21, 2016 Pre Op Diagnosis: Persistent small bowel obstruction Post Op Diagnosis: Same, secondary to adhesions, with ischemic segment of jejunum Surgeon: Mahesh Cordon Manager Access(s): Dawson Crews CFA Procedure: Exp laparotomy, lysis adhesions, small bowel resection with anastomosis Findings: Ischemic small bowel in internal hernia Complications: None Specimen(s) removed: Distal jejunum to pathology Estimated blood loss: 400 ml Anesthesia: General Drains: None IVF (2600 ml) Patient to: PACU Patient Condition: Fair Date/Time of Procedure: SEE SURGICAL CARE RECORD Mahesh Cordon MD Mar 21, 2016 14:35
[2016-03-21] MEDS ORDERED: MIDAZOLAM HCL 2 MG/2 ML VIAL ONE (14:43)
[2016-03-21] MEDS ORDERED: fentaNYL CITRATE 250 MCG/5 ML AMP ONE (14:44)
[2016-03-21] MEDS ORDERED: MORPHINE SULFATE 4 MG/ML INJ IV PRN (14:45)
[2016-03-21] MEDS ORDERED: DO NOT ADM ANY ANTICOAGULANT DRUGS XX PRN (15:00)
[2016-03-21 15:12] LABS: AUTOMATED NEUTROPHIL # 6.9 TH/MM3 (1.8-7.7); BASOPHIL % 0.4 % (0.0-2.0); EOSINOPHIL % 0.1 % (0.0-4.0); HEMATOCRIT 35.3 % (39.0-51.0); HEMO FLAGS DIFF FINAL; LYMPH % 10.1 % (9.0-44.0); LYMPHOCYTE # 0.9 TH/MM3 (1.0-4.8); MEAN CORPUSCULAR HGB CONC 33.7 % (32.0-36.0); MONO % 9.8 % (0.0-8.0); NEUT % 79.6 % (16.0-70.0); PLATELET COUNT 131 TH/MM3 (150-450); RED BLOOD COUNT 3.96 MIL/MM3 (4.50-5.90); RED CELL DISTRIBUTION WIDTH 14.5 % (11.6-17.2); WHITE BLOOD COUNT 8.6 TH/MM3 (4.0-11.0)
[2016-03-21] MEDS ORDERED: SODIUM CHLORIDE 0.9% FLUSH 5 ML FLUSH IVF PRN (15:30)
--- NOTE | 2016-03-21 15:33 | RADRPT ---
EXAM DATE/TIME: 03/21/2016 14:42 [facility] COMPARISON: No previous studies available for comparison. INDICATIONS : Post central line placement. MEDICAL HISTORY : Carcinoma, gastric. SURGICAL HISTORY : None. ENCOUNTER: Initial ACUITY: 1 day PAIN SCORE: Non-responsive. LOCATION: Bilateral chest FINDINGS: A left subclavian central line has its tip directed into the neck likely within the left internal jug ular vein. There is no pneumothorax. The endotracheal tube is 4 cm above the kristel in good positio n. A nasogastric tube has its tip below the diaphragm. Bibasilar atelectasis and/or mild infiltrate s are noted. The heart is normal. CONCLUSION: 1. Left subclavian central line has its tip directed into the neck likely in the left internal jugul ar vein. No pneumothorax is noted. 2. Bibasilar atelectasis and/or mild infiltrates. Tyrese Zamudio MD on March 21, 2016 at 15:26 Board Certified Radiologist. This report was verified electronically.
[2016-03-21 15:36] LABS: BICARBONATE 26.7 MEQ/L (21.0-32.0); POTASSIUM 4.4 MEQ/L (3.5-5.1)
[2016-03-21 15:54] LABS: CALCIUM-PROTEIN CORRECTED 8.6 MG/DL (8.5-10.1)
--- NOTE | 2016-03-21 15:54 | RADRPT ---
EXAM DATE/TIME: 03/21/2016 15:21 [facility] COMPARISON: No previous studies available for comparison. INDICATIONS : Central line placement. MEDICAL HISTORY : None. SURGICAL HISTORY : None. ENCOUNTER: Initial ACUITY: 1 day PAIN SCORE: Non-responsive. LOCATION: Bilateral chest FINDINGS: A right internal jugular central line has its tip in the superior vena cava. There is no pneumothora x status post placement. The left subclavian central line remains malpositioned with its tip in the expected region of the left internal jugular vein. The endotracheal tube has its tip approximately 3 cm above the kristel. A nasogastric tube has its tip below the diaphragm. The lungs are unchanged c ompared to the previous examination with scattered bibasilar patchiness. The heart is stable. CONCLUSION: 1. No pneumothorax status post placement of right internal jugular central line which has its tip in the superior vena cava. 2. Persistent malposition of the tip of the left subclavian central line which is located in the nec k in the expected region of the internal jugular vein. 3. No significant change in the bibasilar patchiness consistent with a atelectasis and/or mild infil trates. Tyrese Zamudio MD on March 21, 2016 at 15:47 Board Certified Radiologist. This report was verified electronically.
[2016-03-21] MEDS ORDERED: fentaNYL DRIP 250 ML IV SCH (16:00)
[2016-03-21] MEDS ORDERED: PROPOFOL 1000 MG/100 ML INJ 100 ML IV SCH (16:00)
[2016-03-21 16:07] LABS: BLOOD GAS BASE EXCESS -1.6 mmol/L (-2-2); BLOOD GAS CARBOXYHEMOGLOBIN 2.2 % (0-4); BLOOD GAS HCO3 24 mmol/L (22-26); BLOOD GAS METHEMOGLOBIN 1.4 % (0-2); BLOOD GAS O2 HGB SATURATION 95 % (90-100); BLOOD GAS OXYGEN CONTENT 16.3 Vol % (12.0-20.0); BLOOD GAS PCO2 47 mmHg (38-42); BLOOD GAS PO2 131 mmHg (61-120); CRITICAL VALUE NO; OXYGEN DEVICE VENTILATOR; TEMP CORR TO 98.6
[2016-03-21 16:08] LABS: DRAW SITE RT BRACHIAL; FIO2 50 %; NUMBER OF ARTERIAL PUNCTURES 1; STAT NO; ULNAR PULSE PRESENT; VENT SETTINGS A/C 500/12/5PEEP
[2016-03-21] MEDS: PROPOFOL 1000 MG/100 ML IV SCH (16:10)
--- NOTE | 2016-03-21 16:15 | PD.CONS ---
[facility] Service Critical Care Medicine Consult Requested By Dr. Cordon Reason for Consult Postoperative management status post exploratory laparoscopy lysis adhesion small bowel resection secondary to his ischemic jejunal bowel in hernia Primary Care Physician Unknown History of Present Illness This is a 89-year-old male. Date of admission 03/18/2016. Date of consultation 03/21/2016. Past medical history includes bilateral cataracts, hypertension, disability, hypothyroidism, insomnia and history of gastric cancer status post partial gastrectomy and history of multiple inguinal hernia repairs. He presented to [facility] on 03/18 with acute onset abdominal pain. No bowel movements for several days. CT abdomen and pelvis revealed there is a small bowel position the right upper quadrant pelvis with a "twisting action likely incarceration. Hospital submitted patient general surgery was consulted. She had NG tube placed in cerebral abdominal exams and x-rays performed. Patient's abdominal pain persisted of nausea and vomiting. The patient eventually aborted with Dr. Cordon. Today, patient underwent exploratory laparoscopy/lyse adhesions with small bowel 's resection secondary to ischemic jejunum loop an intestinal hernia. 2600 crystalloid. Minimal blood loss. 250 cc urine output. Patient has been on Levaquin/Flagyl since/5D UTI. This be continued. Patient is currently arousable on the ventilator. We are asked to watch the patient overnight with possible extubation in a.m. Review of Systems ROS Limitations: Intubated Past Family Social History Allergies: Coded Allergies: No Known Allergies (Unverified , 03/18/16) Past Medical History Macular degeneration Peripheral neuropathy Diabetes mellitus Traumatic right cataract/iris fixated dilated History of BCC History of prostate cancer Hypothyroidism Osteoarthritis bilateral knees Hypertension Dyslipidemia Allergic rhinitis Past Surgical History Tonsillectomy 0 Inguinal hernia repair 1945, Basal cell carcinomas removed 1966 and 1999 Vagotomy and partial gastrectomy in 1974 with cholecystectomy Inguinal hernia repair 1975 Traumatic cataract surgery 1979 Right hydrocelectomy 1982, Left cataract surgery with lens implant 1995 Perforated gastric ulcer which was found to be a gastric cancer in 2002 with chemotherapy and radiation Gastric ulcer removal with removal of two lymph nodes and metastatic disease in 2002 Abdominal hernia repair with mesh in 2003 and revision due to bowel obstruction later 2003. Removal of benign bladder mass in 2013. Reported Medications Dutasteride 0.5 mg at night Fluoxetine 20 mg by mouth daily Alphagan D 1 drop right eye twice a day Ciclopirex 8% on toe nails at night Timoptic-XE 0.25% one drop right eye at night PreserVision 1 tablet daily Imdur 30 mg by mouth daily [place] oil 500 mg by mouth daily Aspirin 81 mg by mouth daily Saw palmetto 1000 mg by mouth daily Synthroid 112 g by mouth daily Folic acid 800 mg by mouth daily Vitamin D 340 units by mouth daily Calcium carbonate with vitamin D 500 mg/125 units 1 tablet daily Active Ordered Medications Reviewed in EMR Family History No family history of cancer diabetes documented Social History No documentation or dictation of alcohol, tobacco or IV drug use Physical Exam Vital Signs Vital Signs Date Time Temp Pulse Resp B/P Pulse Ox O2 Delivery O2 Flow Rate FiO2 03/21/16 14:30 99 50 03/21/16 14:27 98.0 73 10 140/72 99 Mechanical Ventilator 50 03/21/16 11:15 98.9 78 17 124/60 95 03/21/16 10:51 98 Nasal Cannula 3.00 03/21/16 08:00 98.7 88 18 130/63 98 03/21/16 03:30 98 Nasal Cannula 3.00 03/21/16 03:30 98 Nasal Cannula 3.00 03/21/16 03:00 96 14 131/56 95 03/21/16 00:42 103 21 138/64 94 03/20/16 23:38 97.9 87 22 138/72 94 03/20/16 20:15 96.5 96 21 129/59 94 Physical Exam GENERAL: 89-year-old male, critically ill currently orotracheally intubated SKIN: Warm and dry. No rash HEAD: Atraumatic. Normocephalic. EYES: Right pupil is 8 mm and fixed. Left pupil is pinpoint and minimally reactive. No scleral icterus. No injection or drainage. ENT: No nasal bleeding or discharge. Mucous membranes pink and moist. NECK: Trachea midline. No JVD. Right IJ CVL clean dry and intact. CARDIOVASCULAR: Regular rate and rhythm. S1, S2. No S4. Distant. No murmur appreciated RESPIRATORY: Clear to auscultation. Breath sounds equal bilaterally. GASTROINTESTINAL: Abdomen soft, non-tender, nondistended. Midline abpad place without drainage. Hypoactive bowel sounds appreciated MUSCULOSKELETAL: Extremities without significant peripheral edema. No obvious deformities. NEUROLOGICAL: Right pupil is fixed and dilated. Left pupil Reacts. Positive gag. Moves all 4 extremities to noxious stimuli.. No obvious cranial nerve deficits. Motor grossly within normal limits Laboratory Laboratory Tests Test 03/21/16 03/21/16 03/21/16 04:34 12:50 15:01 White Blood Count 15.5 8.6 Red Blood Count 3.75 3.96 Hemoglobin 11.6 11.9 Hematocrit 34.1 35.3 Mean Corpuscular Volume 90.9 89.0 Mean Corpuscular Hemoglobin 31.0 30.0 Mean Corpuscular Hemoglobin 34.1 33.7 Concent Red Cell Distribution Width 13.8 14.5 Platelet Count 138 131 Mean Platelet Volume 8.0 7.2 Neutrophils (%) (Auto) 84.6 79.6 Lymphocytes (%) (Auto) 4.5 10.1 Monocytes (%) (Auto) 10.8 9.8 Eosinophils (%) (Auto) 0.0 0.1 Basophils (%) (Auto) 0.1 0.4 Neutrophils # (Auto) 13.1 6.9 Lymphocytes # (Auto) 0.7 0.9 Monocytes # (Auto) 1.7 0.8 Eosinophils # (Auto) 0.0 0.0 Basophils # (Auto) 0.0 0.0 CBC Comment DIFF FINAL DIFF FINAL Differential Comment Sodium Level 135 138 Potassium Level 5.4 4.4 Chloride Level 101 103 Carbon Dioxide Level 27.2 26.7 Anion Gap 7 8 Blood Urea Nitrogen 53 44 Creatinine 2.19 1.33 Estimat Glomerular Filtration 28 51 Rate Random Glucose 201 179 Calcium Level 7.9 7.1 Blood Type A NEGATIVE Antibody Screen NEGATIVE Crossmatch Leukocyte-Reduced Red Blood Cells Blood Bank Comment Protein Corrected Calcium 8.6 Total Protein 4.4 Date/Time Procedure Status Source Growth 03/18/16 23:43 Urine Culture - Final Complete Urine Random Urine Proteus Mirabilis Result Diagram: 03/21/16 1501 03/21/16 1501 Imaging Last Impressions Abdomen X-Ray 03/20/16 0600 Signed Impressions: Service Date/Time: Sunday, March 20, 2016 05:55 - CONCLUSION: Increasing gaseous distention of loops of small bowel in the left abdomen. Jian Kessler MD Abdomen/Pelvis CT 03/18/16 1511 Signed Impressions: Service Date/Time: March 16:24 - CONCLUSION: Small bowel obstruction. Berlin Metzger MD Assessment and Plan Assessment and Plan Neuro/Psych: Cataract Macular degeneration Known fixed right pupil secondary to traumatic cataract Depression Patient is currently on propofol/fentanyl drips for sedation/analgesia while intubated Goal of RASS -2. Daily sedation vacation Patient is on fluoxetine 20 milligrams by mouth daily for depression. This will be continued Patient is on Alphagan D 1 drop right eye twice a day. Continue. Patient is on Timoptic xc 0.25% 1 drop right eye at night. Continue He is on trazodone 50 at night for depression. This is been held CV: Hypertension Dyslipidemia Currently on D5 03/15 normal saline at 125 cc an hour. Currently not requiring vasopressors and/or antihypertensives On atorvastatin 40 mg by mouth daily at home. This is been held for dyslipidemia She is on Imdur 30 mg by mouth daily. This be held Resp: VDRF ACV 12500/ Ventilator bundle Bronchodilator therapy if needed every 2 hours Spontaneous breathing trials in a.m. GI: Postop day #0 exploratory laparotomy/lysis of adhesions with small bowel resection and anastomosis secondary to ischemic jejunum in internal hernia History of duodenal stomach ulcers removal/vagotomy and cholecystectomy 1974 History of inguinal hernia repair 2 History of benign colon polyps History of gastric cancer chest 36 post chemotherapy/gastric upper removal with lymph node removal 2002 History abdominal hernia repair with mesh replacement revision due to bowel obstruction CT abdomen/pelvis 03/18 revealed small bowel dilatation the right upper quadrant and pelvis. Possible "twisting". Patient was taken to the OR after failing conservative therapy with bowel rest. Protonix for GI prophylaxis : History of prostate cancer History of benign bladder mass Lassiter catheter for accurate I's and O's in critically ill patient Patient is on a Venturi 0.5 mill grams at night for BPH. Endo: Hypothyroidism Diabetes mellitus Continue Levoxyl 112 g daily for hypothyroidism Sliding scale insulin with Accu-Cheks every 6 to maintain euglycemia. Holding metformin 1000 mg by mouth daily for diabetes. Renal: Acute kidney injury - resolved Currently currently within normal limits. Avoid nephrotoxic drugs Heme/Onc: History of basal carcinoma History of prostate cancer History of gastric cancer CBC within normal limits on admission. ID: Proteus UTI Levaquin/Flagyl day #4 since 03/18 Pertinent cultures UA -Proteus FEN: Replacing electrolytes as clinically indicated MSK: History of balloon kyphoplasty L2 2003 PT/OT evaluate and treat Access - Right IJ CVL day 1 Prophylaxis - GI - Protonix - DVT - SCD/pharmacological prophylaxis when okay with general surgery Critical Care: The total critical care time was 55 minutes. Time to perform other separately billable procedures was not included in the critical care time. 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 MEDIA SERVICES SPECIALIST. Care plan discussed and all questions answered. Kade Beatty MD Mar 21, 2016 16:15
--- NOTE | 2016-03-21 16:29 | PD.PROCEDR ---
Central Line Procedure REASON FOR PROCEDURE Central venous access PROCEDURE PERFORMED Central line placement: Right IJ CVL CONSENT Informed consent for procedure was obtained. The risks and benefits of the procedure were discussed to include but limited to bleeding, clot formation, infection, and even . ANESTHESIA Local injection of 1% Lidocaine DESCRIPTION OF THE PROCEDURE The patient was placed in supine, mild Trendelenburg position. The area was exposed and cleansed with ChloraPrep, times two. Large sterile drape was used to cover the patient, with the site exposed, under sterile conditions including cap, face mask, sterile gown, and sterile gloves. On single attempt, the introducer needle was inserted with negative pressure in syringe and venous flash was obtained. The guide wire was then advanced without any restriction and the needle was removed. The dilator was used without any complications. Using Seldinger technique the triple-lumen catheter was advanced over the guide wire to a depth of 16 centimeters. The guide wire was removed. All ports were aspirated with dark venous blood return and flushed easily with sterile saline. All ports were capped. Antibiotic disc was placed around central line at puncture site. The central line was secured to the skin with two interrupted 2.0 silk sutures. The area was bandaged with sterile see-through central line bandage. RADIOLOGICAL DATA Ultrasound guidance was used to locate right internal jugular vein. Doppler/ color flow was used to confirm venous flow. COMPLICATIONS: No apparent complications ESTIMATED BLOOD LOSS: Less than 1 cc. Kade Beatty MD Mar 21, 2016 16:29
--- NOTE | 2016-03-21 18:41 | MP ---
cc: MAHESH CORDON M.D. DATE OF SURGERY: 03/21/2016. PREOPERATIVE DIAGNOSIS: Persistent small bowel obstruction. POSTOPERATIVE DIAGNOSIS: Persistent small bowel obstruction secondary to internal hernia with ischemic bowel. OPERATIVE PROCEDURE PERFORMED: 1. Exploratory laparotomy. 2. Lysis of adhesions. 3. Small bowel resection with primary anastomosis. SURGEON: Mahesh Cordon MD. ANESTHESIA: General endotracheal anesthesia. ESTIMATED BLOOD LOSS: 400 mL. FLUIDS: 2600 mL crystalloid and one unit of packed red blood cells. COMPLICATIONS None. DRAINS: None. SPECIMEN: Distal jejunum to pathology. FINDINGS: Internal hernia with ischemic loop of bowel that did not pink up well after the torsing and releasing of adhesion. DESCRIPTION OF THE PROCEDURE IN DETAIL: The patient was taken to the operating room and placed on the operating table in the supine position. After an adequate level of general endotracheal anesthesia was achieved, a central line was placed in the left subclavian region and the abdomen was prepped and draped in usual fashion. Time-out was taken confirming the correct patient, site and procedure to be performed. Incision was made through the patient's previous old midline incision and carried down through the fascia including through the mesh. The omentum and bowel was taken down off of the anterior abdominal wall with sharp dissection and minimal use of electrocautery. This allowed for manipulation of the bowel after taking down adhesions laboriously. When this had been accomplished and no enterotomies were created, the small bowel was seen to be torsed within an internal hernia down in the pelvis. This was released and the bowel was laid out externally. A significant segment of bowel, approximately 18 inches long was ischemic and did not pink up well. The bowel also had two areas of stricturing and it was felt that these would be at risk for perforation if these were left intact. Thus, decision was made to excise the bowel that had been looped in the internal hernia. The small bowel was divided proximally and distally to the stricture sites with YULISA staplers. The mesentery was divided by successive clamping and ligation utilizing 2-0 silk suture. The specimen was passed off the table. The jejunojejunostomy was placed [id number] and the stapler fired. The toe of the staple line was secured with a 3-0 silk suture. The staple line was seen to be clean and dry. Bloody material was extruded from the proximal small bowel and rinsed out. With the staple line hemostatic, the jejunojejunostomy was closed with a DX 60 type stapler. One single stitch was placed in the middle portion of the incision as the rest was hemostatic. The mesenteric defect was closed with 3-0 Vicryl suture. At this point, the abdomen was irrigated copiously with warm saline irrigation. All irrigation was aspirated from the abdominal cavity and no further bleeding was noted. After all irrigation was aspirated, the abdomen was closed with looped #1 PDS suture. The skin was closed with meron and the wound dressed with 4x4s and Medipore tape. Sponge, needle and instrument counts were reported to be correct. The patient tolerated the procedure well. MD VALERY Diaz/LUKE /4:48 PM /6:34 PM
[2016-03-21] MEDS: SODIUM CHLORIDE 0.9% FLUSH 5 ML FLUSH IVF SCH (19:30)
[2016-03-21] MEDS: CHLORHEXIDINE 0.12% (ORAL KIT) 15 ML CUP MT SCH (20:00)
[2016-03-21] MEDS: FINASTERIDE 5 MG TAB PO SCH (21:00)
[2016-03-21] MEDS: LEVOFLOXACIN 500 MG PREMIX INJ 100 ML IV SCH (22:54)
[2016-03-22] VITALS (22 sets, daily range): BP systolic 100–147; BP diastolic 51–67; PULSE 61–89; RESP 12–21; TEMP 98.1–100.2; O2SAT 98–100
[2016-03-22] MEDS: PROPOFOL 1000 MG/100 ML IV SCH (00:08)
[2016-03-22] MEDS ORDERED: SODIUM CHLOR 0.9% 250 ML INJ 250 ML IV ONE (01:15)
--- NOTE | 2016-03-22 03:50 | HHI.CCPN ---
Subjective Remarks/Hospital Course I was called around 1 am as patient was going to be transferred from PACU to [facility] because SBP was 89/42. HOME ENERGY RATER stated BP improved to 107/51 when she decreased propofol from 20 to 10 mcg and decreased fentanyl from 100 mcg to 50 mcg/min. She stated UOP has been 70-80 mL/hr. Patient was given NS 250 ml IV bolus. I reassessed patient following arrival to [facility] and BP was MAP 62, pulse 60s and sinus. His UOP was still ~100/hr and he was on MIVF with D51/2NS @ 125/ hr. He awakens and nods in response to questions. Follows commands. Skin is warm and well perfused, nondiaphoretic. Bedside limited cardiac ultrasound demonstrates grossly normal contractility with adequate RV filling. No JVD. He appears adequately volume resuscitated. I believe hypotension is sedation related. Held propofol (which was at 10 mcg/kg/min when I arrived at bedside). On fentanyl 100 mcg/hr and he arouses but appears comfortable on that. Will use fentanyl alone for analgosedation. Plan to extubate later this morning. Will add low dose levophed if needed to maintain MAP of 65, as he does have some sedation requirement for now. However, now BP is 106/56, MAP 79 so appears this will not be necessary. Discussed with Berkley Vanegas RN at bedside. Objective Vital Signs Date Time Temp Pulse Resp B/P Pulse Ox O2 Delivery O2 Flow Rate FiO2 03/22/16 01:44 99 40 03/22/16 01:30 70 03/22/16 01:15 100.2 12 107/51 03/22/16 01:00 Mechanical Ventilator 03/21/16 10:51 3.00 Intake and Output 03/21/16 03/21/16 03/22/16 08:00 16:00 00:00 Intake Total 835 ml 1275 ml 975 ml Output Total 350 ml 640 ml Balance 835 ml 925 ml 335 ml Result Diagram: 03/21/16 1501 03/21/16 1501 Other Results Laboratory Tests Test 03/21/16 16:00 Blood Gas Puncture Site RT BRACHIAL Blood Gas Patient Temperature 98.6 Blood Gas HCO3 24 mmol/L (22-26) Blood Gas Base Excess -1.6 mmol/L (-2-2) Blood Gas Oxygen Saturation 95 % (90-100) Arterial Blood pH 7.33 (7.380-7.420) Arterial Blood Partial 47 mmHg (38-42) Pressure CO2 Arterial Blood Partial 131 mmHg Pressure O2 (61-120) Arterial Blood Oxygen Content 16.3 Vol % (12.0-20.0) Arterial Blood 2.2 % (0-4) Carboxyhemoglobin Arterial Blood Methemoglobin 1.4 % (0-2) Blood Gas Hemoglobin 12.0 G/DL (12.0-16.0) Oxygen Delivery Device VENTILATOR Blood Gas Ventilator Setting A/C 500/12/5PEEP Blood Gas Inspired Oxygen 50 % Imaging Last Impressions Abdomen X-Ray 03/20/16 0600 Signed Impressions: Service Date/Time: Sunday, March 20, 2016 05:55 - CONCLUSION: Increasing gaseous distention of loops of small bowel in the left abdomen. Jian Kessler MD Abdomen/Pelvis CT 03/18/16 1511 Signed Impressions: Service Date/Time: March 16:24 - CONCLUSION: Small bowel obstruction. [place] Metzger MD Objective Remarks A/P Assessment and Plan Olivia Manuel MD Mar 22, 2016 03:50 CARDIOVASCULAR: Regular rate and rhythm. S1, S2. No S4. Distant. No murmur appreciated RESPIRATORY: Clear to auscultation. Breath sounds equal bilaterally. GASTROINTESTINAL: Abdomen soft, non-tender, nondistended. Midline abpad place without drainage. Hypoactive bowel sounds appreciated MUSCULOSKELETAL: Extremities without significant peripheral edema. No obvious deformities. NEUROLOGICAL: Right pupil is fixed and dilated. Left pupil Reacts. Positive gag. Moves all 4 extremities to noxious stimuli.. No obvious cranial nerve deficits. Motor grossly within normal limits A/P Assessment and Plan Olivia Manuel MD Mar 22, 2016 03:50
[2016-03-22] MEDS ORDERED: TERBUTALINE INJ 1 MG/ML AMP SQ PRN (04:00)
[2016-03-22 04:35] LABS: AUTOMATED NEUTROPHIL # 7.5 TH/MM3 (1.8-7.7); BASOPHIL % 0.1 % (0.0-2.0); EOSINOPHIL % 0.1 % (0.0-4.0); HEMATOCRIT 30.6 % (39.0-51.0); HEMO FLAGS DIFF FINAL; LYMPH % 7.8 % (9.0-44.0); LYMPHOCYTE # 0.7 TH/MM3 (1.0-4.8); MEAN CELL VOLUME 88.2 FL (80.0-100.0); MEAN CORPUSCULAR HEMOGLOBIN 30.7 PG (27.0-34.0); MEAN CORPUSCULAR HGB CONC 34.8 % (32.0-36.0); MONO % 10.5 % (0.0-8.0); NEUT % 81.5 % (16.0-70.0); PLATELET COUNT 131 TH/MM3 (150-450); RED BLOOD COUNT 3.47 MIL/MM3 (4.50-5.90); RED CELL DISTRIBUTION WIDTH 14.6 % (11.6-17.2); WHITE BLOOD COUNT 9.2 TH/MM3 (4.0-11.0)
[2016-03-22] MEDS: LEVOTHYROXINE SODIUM 112 MCG TAB PO SCH ×2 (05:19→08:22)
[2016-03-22] MEDS: metroNIDAZOLE 500 MG INJ 100 ML IV SCH ×3 (05:19→21:03)
[2016-03-22 05:29] LABS: BICARBONATE 28.7 MEQ/L (21.0-32.0); CALCIUM-PROTEIN CORRECTED 9.2 MG/DL (8.5-10.1); MAGNESIUM 1.9 MG/DL (1.5-2.5); POTASSIUM 4.3 MEQ/L (3.5-5.1); TOTAL BILIRUBIN ADULT 0.6 MG/DL (0.2-1.0)
[2016-03-22] MEDS: ISOSORBIDE MONONITRATE 20 MG TAB PO SCH (06:19)
[2016-03-22] MEDS: INSULIN ASPART SUPPLEMENTAL SCALE SQ SCH ×4 (06:19→21:04)
[2016-03-22] MEDS: ACETAMINOPHEN 325 MG TAB PO PRN (08:22)
[2016-03-22] MEDS: ONDANSETRON HCL 4 MG/2 ML VIAL IVP PRN (08:22)
[2016-03-22] MEDS: FLUoxetine HCL 20 MG CAP PO SCH (08:22)
[2016-03-22] MEDS: LACTOBACILLUS ACIDOPHILUS TAB PO SCH ×2 (08:22→21:04)
[2016-03-22] MEDS: CHLORHEXIDINE 0.12% (ORAL KIT) 15 ML CUP MT SCH ×2 (08:23→20:00)
[2016-03-22] MEDS: SODIUM CHLORIDE 0.9% FLUSH 5 ML FLUSH IVF SCH (08:23)
[2016-03-22] MEDS: TIMOLOL MALEATE 0.5% OPHT SOLN 5 ML BTL RIGHT EYE SCH ×2 (08:24→21:04)
[2016-03-22] MEDS: BRIMONIDINE TARTRATE 0.15% OPHT SOLN 5 ML BTL RIGHT EYE SCH ×2 (08:24→21:04)
[2016-03-22] MEDS ORDERED: SODIUM PHOSPHATE INJ 15 MMOL in SODIUM CHLORIDE 0.9% INJ 150 ML IV ONE (09:00)
[2016-03-22] MEDS ORDERED: MAGNESIUM SULFATE 1 GM PREMIX 100 ML IV ONE (09:00)
[2016-03-22] MEDS: DEXT 5%-NACL 0.45% 1000 ML INJ 1,000 ML IV SCH ×2 (09:22→13:33)
--- NOTE | 2016-03-22 10:30 | HHI.PR ---
Subjective Subjective Notes Uneventful night Hemodynamically stable Objective Vitals/I&O Vital Signs Date Time Temp Pulse Resp B/P Pulse Ox O2 Delivery O2 Flow Rate FiO2 03/22/16 10:00 67 03/22/16 08:17 40 03/22/16 08:17 99 03/22/16 08:00 98.9 15 103/55 03/22/16 01:00 Mechanical Ventilator 03/21/16 10:51 3.00 Labs Laboratory Tests Test 03/21/16 03/21/16 03/21/16 03/22/16 12:50 15:01 16:00 01:40 Blood Type A NEGATIVE Antibody Screen NEGATIVE Crossmatch Leukocyte-Reduced Red Blood Cells Blood Bank Comment White Blood Count 8.6 Red Blood Count 3.96 Hemoglobin 11.9 Hematocrit 35.3 Mean Corpuscular Volume 89.0 Mean Corpuscular Hemoglobin 30.0 Mean Corpuscular Hemoglobin 33.7 Concent Red Cell Distribution Width 14.5 Platelet Count 131 Mean Platelet Volume 7.2 Neutrophils (%) (Auto) 79.6 Lymphocytes (%) (Auto) 10.1 Monocytes (%) (Auto) 9.8 Eosinophils (%) (Auto) 0.1 Basophils (%) (Auto) 0.4 Neutrophils # (Auto) 6.9 Lymphocytes # (Auto) 0.9 Monocytes # (Auto) 0.8 Eosinophils # (Auto) 0.0 Basophils # (Auto) 0.0 CBC Comment DIFF FINAL Differential Comment Sodium Level 138 Potassium Level 4.4 Chloride Level 103 Carbon Dioxide Level 26.7 Anion Gap 8 Blood Urea Nitrogen 44 Creatinine 1.33 Estimat Glomerular Filtration 51 Rate Random Glucose 179 Calcium Level 7.1 Protein Corrected Calcium 8.6 Total Protein 4.4 Blood Gas Puncture Site RT BRACHIAL Blood Gas Patient Temperature 98.6 Blood Gas HCO3 24 Blood Gas Base Excess -1.6 Blood Gas Oxygen Saturation 95 Arterial Blood pH 7.33 Arterial Blood Partial 47 Pressure CO2 Arterial Blood Partial 131 Pressure O2 Arterial Blood Oxygen Content 16.3 Arterial Blood 2.2 Carboxyhemoglobin Arterial Blood Methemoglobin 1.4 Blood Gas Hemoglobin 12.0 Oxygen Delivery Device VENTILATOR Blood Gas Ventilator Setting A/C 500/12/5PEEP Blood Gas Inspired Oxygen 50 Nasal Screen MRSA (PCR) POSITIVE Test 03/22/16 04:25 White Blood Count 9.2 Red Blood Count 3.47 Hemoglobin 10.7 Hematocrit 30.6 Mean Corpuscular Volume 88.2 Mean Corpuscular Hemoglobin 30.7 Mean Corpuscular Hemoglobin 34.8 Concent Red Cell Distribution Width 14.6 Platelet Count 131 Mean Platelet Volume 7.5 Neutrophils (%) (Auto) 81.5 Lymphocytes (%) (Auto) 7.8 Monocytes (%) (Auto) 10.5 Eosinophils (%) (Auto) 0.1 Basophils (%) (Auto) 0.1 Neutrophils # (Auto) 7.5 Lymphocytes # (Auto) 0.7 Monocytes # (Auto) 1.0 Eosinophils # (Auto) 0.0 Basophils # (Auto) 0.0 CBC Comment DIFF FINAL Differential Comment Sodium Level 137 Potassium Level 4.3 Chloride Level 103 Carbon Dioxide Level 28.7 Anion Gap 5 Blood Urea Nitrogen 42 Creatinine 1.20 Estimat Glomerular Filtration 57 Rate Random Glucose 223 Calcium Level 7.4 Protein Corrected Calcium 9.2 Phosphorus Level 1.8 Magnesium Level 1.9 Total Bilirubin 0.6 Aspartate Amino Transf 14 (AST/SGOT) Alanine Aminotransferase 20 (ALT/SGPT) Alkaline Phosphatase 35 Total Protein 4.1 Albumin 1.8 Date/Time Procedure Status Source Growth 03/18/16 23:43 Urine Culture - Final Complete Urine Random Urine Proteus Mirabilis Cardiovascular: Regular Lungs: Clear Abdomen: Non-distended, Post-op tenderness Narrative Exam Hart dry and intact; wound without erythema A/P Assessment and Plan Assessment: SBO, secondary to internal hernia with ischemia UTI Stable, improved Plan: Extubate today Keep NG until bowel activity Antibiotics for UTI already started Mahesh Cordon MD Mar 22, 2016 10:30
--- NOTE | 2016-03-22 10:56 | HHI.CCPN ---
Subjective Remarks/Hospital Course This is a 89-year-old male. Date of admission 03/18/2016. Date of consultation 03/21/2016. Past medical history includes bilateral cataracts, hypertension, disability, hypothyroidism, insomnia and history of gastric cancer status post partial gastrectomy and history of multiple inguinal hernia repairs. He presented to [facility] on 03/18 with acute onset abdominal pain. No bowel movements for several days. CT abdomen and pelvis revealed there is a small bowel position the right upper quadrant pelvis with a "twisting action likely incarceration. Hospital submitted patient general surgery was consulted. She had NG tube placed in cerebral abdominal exams and x-rays performed. Patient's abdominal pain persisted of nausea and vomiting. The patient eventually aborted with Dr. Cordon. Today, patient underwent exploratory laparoscopy/lyse adhesions with small bowel 's resection secondary to ischemic jejunum loop an intestinal hernia. 2600 crystalloid. Minimal blood loss. 250 cc urine output. Patient has been on Levaquin/Flagyl since/5D UTI. This be continued. Patient is currently arousable on the ventilator. We are asked to watch the patient overnight with possible extubation in a.m. Subjective 03/22: Clinically stable. Episode of hypotension resolved with Bolus 500 cc and lessening of sedation in order to blood pressure. Attempting spontaneous breathing trials currently with planned extubation. Okay with general surgery. Afebrile. Following commands. Objective Vital Signs Date Time Temp Pulse Resp B/P Pulse Ox O2 Delivery O2 Flow Rate FiO2 03/22/16 10:00 67 03/22/16 08:17 40 03/22/16 08:17 99 03/22/16 08:00 98.9 15 103/55 03/22/16 01:00 Mechanical Ventilator 03/21/16 10:51 3.00 Intake and Output 03/21/16 03/21/16 03/22/16 08:00 16:00 00:00 Intake Total 835 ml 1275 ml 975 ml Output Total 350 ml 640 ml Balance 835 ml 925 ml 335 ml Result Diagram: 03/22/16 0425 03/22/16 0425 Other Results Microbiology Date/Time Procedure Status Source Growth 03/18/16 23:43 Urine Culture - Final Complete Urine Random Urine Proteus Mirabilis Imaging Last Impressions Chest X-Ray 03/21/16 1277 Signed Impressions: Service Date/Time: Monday, March 21, 2016 15:21 - CONCLUSION: 1. No pneumothorax status post placement of right internal jugular central line which has its tip in the superior vena cava. 2. Persistent malposition of the tip of the left subclavian central line which is located in the neck in the expected region of the internal jugular vein. 3. No significant change in the bibasilar patchiness consistent with a atelectasis and/or mild infiltrates. Tyrese Zamudio MD Abdomen X-Ray 03/20/16 0600 Signed Impressions: Service Date/Time: Sunday, March 20, 2016 05:55 - CONCLUSION: Increasing gaseous distention of loops of small bowel in the left abdomen. Jian Kessler MD Abdomen/Pelvis CT 03/18/16 1511 Signed Impressions: Service Date/Time: March 16:24 - CONCLUSION: Small bowel obstruction. Berlin Metzger MD Objective Remarks GENERAL: 89-year-old male, critically ill currently orotracheally intubated SKIN: Warm and dry. No rash HEAD: Atraumatic. Normocephalic. EYES: Right pupil is 8 mm and fixed. Left pupil is pinpoint and minimally reactive. No scleral icterus. No injection or drainage. ENT: No nasal bleeding or discharge. Mucous membranes pink and moist. NECK: Trachea midline. No JVD. Right IJ CVL clean dry and intact. CARDIOVASCULAR: Regular rate and rhythm. S1, S2. No S4. Distant. No murmur appreciated RESPIRATORY: Clear to auscultation. Breath sounds equal bilaterally. GASTROINTESTINAL: Abdomen soft, non-tender, nondistended. Midline abpad place without drainage. Hypoactive bowel sounds appreciated MUSCULOSKELETAL: Extremities without significant peripheral edema. No obvious deformities. NEUROLOGICAL: Right pupil is fixed and dilated. Left pupil Reacts. Positive gag. Moves all 4 extremities to noxious stimuli.. No obvious cranial nerve deficits. Motor grossly within normal limits Urinary Catheter: Yes Assessment to: Continue Lassiter insert reason: Prolonged Immobilization Vascular Central Line Catheter: Yes Assessment to: Continue Date of Insertion: Mar 21, 2016 Line: Central Venous Catheter Side: Right Location: Internal, Jugular A/P Assessment and Plan Neuro/Psych: Cataract Macular degeneration Known fixed right pupil secondary to traumatic cataract Depression Patient is currently on propofol at 10 mcg/kg per minute/fentanyl drips for sedation/analgesia while intubated Goal of RASS -2. Daily sedation vacation Patient is on fluoxetine 20 milligrams by mouth daily for depression. This will be continued Patient is on Alphagan D 1 drop right eye twice a day. Continue. Patient is on Timoptic xc 0.25% 1 drop right eye at night. Continue He is on trazodone 50 at night for depression. This is been held CV: Hypertension Dyslipidemia Currently on D5 1/2 normal saline at 125 cc an hour. Currently not requiring vasopressors and/or antihypertensives On atorvastatin 40 mg by mouth daily at home. This is been held for dyslipidemia She is on Imdur 30 mg by mouth daily. This be held Resp: VDRF ACV / Ventilator bundle Bronchodilator therapy if needed every 2 hours Spontaneous breathing trials in a.m. with planned extubation GI: Postop day #1 exploratory laparotomy/lysis of adhesions with small bowel resection and anastomosis secondary to ischemic jejunum in internal hernia History of duodenal stomach ulcers removal/vagotomy and cholecystectomy 1974 History of inguinal hernia repair 2 History of benign colon polyps History of gastric cancer chest 36 post chemotherapy/gastric upper removal with lymph node removal 2002 History abdominal hernia repair with mesh replacement revision due to bowel obstruction CT abdomen/pelvis 03/18 revealed small bowel dilatation the right upper quadrant and pelvis. Possible "twisting". Patient was taken to the OR after failing conservative therapy with bowel rest. Protonix for GI prophylaxis : History of prostate cancer History of benign bladder mass Lassiter catheter for accurate I's and O's in critically ill patient Patient is on dutasteride 0.5 mg at night for BPH. Endo: Hypothyroidism Diabetes mellitus Continue Levoxyl 112 g daily for hypothyroidism Sliding scale insulin with Accu-Cheks every 6 to maintain euglycemia. Holding metformin 1000 mg by mouth daily for diabetes. Renal: Acute kidney injury - resolved Currently currently within normal limits. Avoid nephrotoxic drugs Heme/Onc: History of basal carcinoma History of prostate cancer History of gastric cancer CBC within normal limits on admission. ID: Proteus UTI Levaquin/Flagyl day #5 since 03/18 Pertinent cultures UA -Proteus FEN: Replacing electrolytes as clinically indicated MSK: History of balloon kyphoplasty L2 2004 PT/OT evaluate and treat Access - Right IJ CVL day 2 Prophylaxis - GI - Protonix - DVT - SCD/pharmacological prophylaxis when okay with general surgery Critical Care: The total critical care time was 35 minutes. Time to perform other separately billable procedures was not included in the critical care time. 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 ETHANOL MAINTENANCE MECHANIC. Care plan discussed and all questions answered. Kade Beatty MD Mar 22, 2016 10:56 Kade Beatty MD Mar 22, 2016 10:56
[2016-03-22] MEDS: MORPHINE SULFATE 4 MG/ML INJ IV PUSH PRN (12:02)
[2016-03-22 12:09] LABS: BLOOD GAS BASE EXCESS 0.1 mmol/L (-2-2); BLOOD GAS CARBOXYHEMOGLOBIN 1.2 % (0-4); BLOOD GAS HCO3 26 mmol/L (22-26); BLOOD GAS O2 HGB SATURATION 97 % (90-100); BLOOD GAS OXYGEN CONTENT 16.2 Vol % (12.0-20.0); BLOOD GAS PCO2 57 mmHg (38-42); BLOOD GAS PO2 176 mmHg (61-120); BLOOD GAS TOTAL HGB 11.6 G/DL (12.0-16.0); CRITICAL VALUE YES; DRAW SITE RT RADIAL; FIO2 50 %; LITER FLOW 6 L/M; NUMBER OF ARTERIAL PUNCTURES 1; OXYGEN DEVICE VENT; STAT NO; TEMP CORR TO 98.6; ULNAR PULSE PRESENT
--- NOTE | 2016-03-22 13:02 | RADRPT ---
EXAM DATE/TIME: 03/22/2016 11:49 [facility] COMPARISON: CHEST SINGLE AP, March 21, 2016, 15:21. INDICATIONS: Short of breath MEDICAL HISTORY: Carcinoma, gastric. SURGICAL HISTORY: Stomach surgery ENCOUNTER: Subsequent ACUITY: 2 weeks PAIN SCORE: 0/10 LOCATION: Chest FINDINGS: Bibasilar patchiness is noted consistent with atelectasis and/or infiltrates. A nasogastric tube has its tip in the stomach. Tiny bilateral pleural effusions are likely. A right internal jugular cent ral line has its tip in the superior vena cava. There is no pneumothorax. CONCLUSION: 1. Bibasilar patchiness consistent with atelectasis and/or infiltrates. 2. Tiny bilateral pleural effusions. Tyrese Zamudio MD on March 22, 2016 at 12:55 Board Certified Radiologist. This report was verified electronically.
[2016-03-22 14:53] LABS: BLOOD GAS BASE EXCESS 1.1 mmol/L (-2-2); BLOOD GAS CARBOXYHEMOGLOBIN 1.4 % (0-4); BLOOD GAS HCO3 26 mmol/L (22-26); BLOOD GAS METHEMOGLOBIN 1.1 % (0-2); BLOOD GAS O2 HGB SATURATION 96 % (90-100); BLOOD GAS OXYGEN CONTENT 14.7 Vol % (12.0-20.0); BLOOD GAS PCO2 43 mmHg (38-42); BLOOD GAS PO2 110 mmHg (61-120); BLOOD GAS TOTAL HGB 10.8 G/DL (12.0-16.0); CRITICAL VALUE NO; DRAW SITE RT RADIAL; FIO2 40 %; NUMBER OF ARTERIAL PUNCTURES 1; OXYGEN DEVICE BIPAP; STAT NO; TEMP CORR TO 98.6; ULNAR PULSE PRESENT
[2016-03-22 15:32] LABS: HEMATOCRIT 31.2 % (39.0-51.0); REVIEW FLAG FINAL
[2016-03-22] MEDS: FINASTERIDE 5 MG TAB PO SCH (21:04)
[2016-03-23] VITALS (17 sets, daily range): BP systolic 114–147; BP diastolic 54–85; PULSE 62–96; RESP 17–25; TEMP 98.1–99.8; O2SAT 96–100
[2016-03-23] MEDS: DEXT 5%-NACL 0.45% 1000 ML INJ 1,000 ML IV SCH ×3 (02:37→18:31)
[2016-03-23] MEDS: ACETAMINOPHEN 325 MG TAB PO PRN (03:42)
[2016-03-23 04:33] LABS: HEMATOCRIT 31.7 % (39.0-51.0); MEAN CELL VOLUME 88.9 FL (80.0-100.0); MEAN CORPUSCULAR HEMOGLOBIN 30.5 PG (27.0-34.0); MEAN CORPUSCULAR HGB CONC 34.3 % (32.0-36.0); PLATELET COUNT 144 TH/MM3 (150-450); RED BLOOD COUNT 3.56 MIL/MM3 (4.50-5.90); RED CELL DISTRIBUTION WIDTH 14.1 % (11.6-17.2); REVIEW FLAG FINAL; WHITE BLOOD COUNT 10.6 TH/MM3 (4.0-11.0)
[2016-03-23 04:59] LABS: BICARBONATE 30.8 MEQ/L (21.0-32.0); POTASSIUM 3.9 MEQ/L (3.5-5.1)
[2016-03-23 05:15] LABS: CALCIUM-PROTEIN CORRECTED 8.8 MG/DL (8.5-10.1)
[2016-03-23] MEDS: INSULIN ASPART SUPPLEMENTAL SCALE SQ SCH ×4 (06:11→21:22)
[2016-03-23] MEDS: LEVOTHYROXINE SODIUM 112 MCG TAB PO SCH (06:11)
[2016-03-23] MEDS: metroNIDAZOLE 500 MG INJ 100 ML IV SCH ×3 (06:11→21:21)
[2016-03-23] MEDS: ISOSORBIDE MONONITRATE 20 MG TAB PO SCH (06:11)
[2016-03-23] MEDS ORDERED: POTASSIUM PHOSPHATE IV ONE (06:30)
[2016-03-23] MEDS ORDERED: SODIUM CHLOR 0.9% IV ONE (06:30)
[2016-03-23 07:57] LABS: BLOOD GAS BASE EXCESS 4.3 mmol/L (-2-2); BLOOD GAS CARBOXYHEMOGLOBIN 1.3 % (0-4); BLOOD GAS HCO3 29 mmol/L (22-26); BLOOD GAS METHEMOGLOBIN 1.1 % (0-2); BLOOD GAS O2 HGB SATURATION 95 % (90-100); BLOOD GAS PCO2 53 mmHg (38-42); BLOOD GAS PO2 87 mmHg (61-120); BLOOD GAS TOTAL HGB 10.5 G/DL (12.0-16.0); CRITICAL VALUE YES; DRAW SITE RT RADIAL; LITER FLOW 4 L/M; OXYGEN DEVICE NASAL CANNULA; TEMP CORR TO 98.6
[2016-03-23 07:58] LABS: NUMBER OF ARTERIAL PUNCTURES 1; STAT YES; ULNAR PULSE PRESENT
[2016-03-23] MEDS: SODIUM CHLORIDE 0.9% FLUSH 5 ML FLUSH IVF SCH (09:00)
[2016-03-23] MEDS: LACTOBACILLUS ACIDOPHILUS TAB PO SCH ×2 (10:00→21:21)
[2016-03-23] MEDS: FLUoxetine HCL 20 MG CAP PO SCH (10:00)
[2016-03-23] MEDS: TIMOLOL MALEATE 0.5% OPHT SOLN 5 ML BTL RIGHT EYE SCH ×2 (10:01→23:45)
[2016-03-23] MEDS: BRIMONIDINE TARTRATE 0.15% OPHT SOLN 5 ML BTL RIGHT EYE SCH ×2 (10:01→23:44)
[2016-03-23] MEDS: CHLORHEXIDINE 0.12% (ORAL KIT) 15 ML CUP MT SCH ×2 (10:02→20:00)
[2016-03-23] MEDS: MORPHINE SULFATE 4 MG/ML INJ IV PUSH PRN (10:21)
[2016-03-23] MEDS ORDERED: acetaZOLAMIDE INJ 250 MG in SODIUM CHLORIDE 0.9% INJ 50 ML IV SCH (11:45)
--- NOTE | 2016-03-23 14:08 | EKG ---
Date Performed: 03/22/2016 Time Performed: 12:05:54 PTAGE: 89 years EKG: Sinus rhythm MARKED LEFT AXIS DEVIATION RIGHT BUNDLE BRANCH BLOCK ABNORMAL ECG Since PREVIOUS TRACING , no significant change noted PREVIOUS TRACIN03/18/2016 16.14 DOCTOR: Augustus Jarvis Interpretating Date/Time 03/23/2016 14:00:49
--- NOTE | 2016-03-23 17:49 | HHI.CCPN ---
Subjective Remarks/Hospital Course This is a 89-year-old male. Date of admission 03/18/2016. Date of consultation 03/21/2016. Past medical history includes bilateral cataracts, hypertension, disability, hypothyroidism, insomnia and history of gastric cancer status post partial gastrectomy and history of multiple inguinal hernia repairs. [facility] with acute onset abdominal pain. No bowel movements for several days. CT abdomen and pelvis revealed there is a small bowel position the right upper quadrant pelvis with a "twisting action likely incarceration. Hospital submitted patient general surgery was consulted. She had NG tube placed in cerebral abdominal exams and x-rays performed. Patient's abdominal pain persisted of nausea and vomiting. The patient eventually aborted with Dr. Cordon. Today, patient underwent exploratory laparoscopy/lyse adhesions with small bowel 's resection secondary to ischemic jejunum loop an intestinal hernia. 2600 crystalloid. Minimal blood loss. 250 cc urine output. Patient has been on Levaquin/Flagyl since/5D UTI. This be continued. Patient is currently arousable on the ventilator. We are asked to watch the patient overnight with possible extubation in a.m. Objective Vital Signs Date Time Temp Pulse Resp B/P Pulse Ox O2 Delivery O2 Flow Rate FiO2 03/23/16 16:00 93 03/23/16 16:00 98.9 25 142/65 96 03/23/16 15:06 Venturi Mask 6.00 50 Intake and Output 03/22/16 03/22/16 03/23/16 08:00 16:00 00:00 Intake Total 1470 ml 1296 ml 251 ml Output Total 480 ml 575 ml 1030 ml Balance 990 ml 721 ml -779 ml Result Diagram: 03/23/16 0416 03/23/16 0416 Other Results Laboratory Tests Test 03/23/16 07:45 Blood Gas Puncture Site RT RADIAL Blood Gas Patient Temperature 98.6 Blood Gas HCO3 29 mmol/L (22-26) Blood Gas Base Excess 4.3 mmol/L (-2-2) Blood Gas Oxygen Saturation 95 % (90-100) Arterial Blood pH 7.37 (7.380-7.420) Arterial Blood Partial 53 mmHg (38-42) Pressure CO2 Arterial Blood Partial 87 mmHg Pressure O2 (61-120) Arterial Blood Oxygen Content 14.0 Vol % (12.0-20.0) Arterial Blood 1.3 % (0-4) Carboxyhemoglobin Arterial Blood Methemoglobin 1.1 % (0-2) Blood Gas Hemoglobin 10.5 G/DL (12.0-16.0) Oxygen Delivery Device NASAL CANNULA Blood Gas Liter Flow 4 L/M Imaging Last Impressions Chest X-Ray 03/21/16 1527 Signed Impressions: Service Date/Time: Monday, March 21, 2016 15:21 - CONCLUSION: 1. No pneumothorax status post placement of right internal jugular central line which has its tip in the superior vena cava. 2. Persistent malposition of the tip of the left subclavian central line which is located in the neck in the expected region of the internal jugular vein. 3. No significant change in the bibasilar patchiness consistent with a atelectasis and/or mild infiltrates. Tyrese Zamudio MD Abdomen X-Ray 03/20/16 0600 Signed Impressions: Service Date/Time: Sunday, March 20, 2016 05:55 - CONCLUSION: Increasing gaseous distention of loops of small bowel in the left abdomen. Jian Kessler MD Abdomen/Pelvis CT 03/18/16 1511 Signed Impressions: Service Date/Time: March 16:24 - CONCLUSION: Small bowel obstruction. Berlin Metzger MD Objective Remarks GENERAL: 89-year-old male, critically ill currently orotracheally intubated SKIN: Warm and dry. No rash HEAD: Atraumatic. Normocephalic. EYES: Right pupil is 8 mm and fixed. Left pupil is pinpoint and minimally reactive. No scleral icterus. No injection or drainage. ENT: No nasal bleeding or discharge. Mucous membranes pink and moist. NECK: Trachea midline. No JVD. Right IJ CVL clean dry and intact. CARDIOVASCULAR: Regular rate and rhythm. S1, S2. No S4. Distant. No murmur appreciated RESPIRATORY: Clear to auscultation. Breath sounds equal bilaterally. GASTROINTESTINAL: Abdomen soft, non-tender, nondistended. Midline abpad place without drainage. Hypoactive bowel sounds appreciated MUSCULOSKELETAL: Extremities without significant peripheral edema. No obvious deformities. NEUROLOGICAL: Right pupil is fixed and dilated. Left pupil Reacts. Positive gag. Moves all 4 extremities to noxious stimuli.. No obvious cranial nerve deficits. Motor grossly within normal limits Date of Insertion: Mar 21, 2016 Line: Central Venous Catheter Side: Right Location: Internal, Jugular A/P Assessment and Plan Neuro/Psych: Cataract Macular degeneration Known fixed right pupil secondary to traumatic cataract Depression Patient is extubated on FM BiPAP Continue fluoxetine Continue Alphagan D 1 drop right eye twice a day. . Patient is on Timoptic xc 0.25% 1 drop right eye at night. Continue He is on trazodone 50 at night for depression. This is been held CV: Hypertension Dyslipidemia Currently on D5 1/2 normal saline at 125 cc an hour. Currently hemodynamically stable On atorvastatin 40 mg by mouth daily at home. This is been held for dyslipidemia She is on Imdur 30 mg by mouth daily. This be held Resp: VDRF ACV 12/500/5/100 Ventilator bundle Bronchodilator therapy if needed every 2 hours Spontaneous breathing trials in a.m. with planned extubation GI: Postop day #1 exploratory laparotomy/lysis of adhesions with small bowel resection and anastomosis secondary to ischemic jejunum in internal hernia History of duodenal stomach ulcers removal/vagotomy and cholecystectomy 1974 History of inguinal hernia repair 2 History of benign colon polyps History of gastric cancer chest 36 post chemotherapy/gastric upper removal with lymph node removal 2002 History abdominal hernia repair with mesh replacement revision due to bowel obstruction CT abdomen/pelvis 03/18 revealed small bowel dilatation the right upper quadrant and pelvis. Possible "twisting". Status post Small Bowel Resection Protonix for GI prophylaxis : History of prostate cancer History of benign bladder mass Lassiter catheter for accurate I's and O's in critically ill patient Patient is on dutasteride 0.5 mg at night for BPH. Endo: Hypothyroidism Diabetes mellitus Continue Levoxyl 112 g daily for hypothyroidism Sliding scale insulin with Accu-Cheks every 6 to maintain euglycemia. Holding metformin 1000 mg by mouth daily for diabetes. Renal: Acute kidney injury - resolved Currently currently within normal limits. Avoid nephrotoxic drugs Heme/Onc: History of basal carcinoma History of prostate cancer History of gastric cancer CBC within normal limits on admission. ID: Proteus UTI Levaquin/Flagyl day #5 since 03/18 Pertinent cultures UA -Proteus FEN: Replacing electrolytes as clinically indicated MSK: History of balloon kyphoplasty L2 2003 PT/OT evaluate and treat Access - Right IJ CVL day 2 Prophylaxis - GI - Protonix - DVT - SCD/pharmacological prophylaxis when okay with general surgery Critical Care: The total critical care time was 35 minutes. Time to perform other separately billable procedures was not included in the critical care time. 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 RESOURCE COORDINATOR. Care plan discussed and all questions answered. Eric Mcintosh MD Mar 23, 2016 17:[address] Cordon. RESOURCE COORDINATOR. Care plan discussed and all questions answered. Eric Mcintosh MD Mar 23, 2016 17:49
--- NOTE | 2016-03-23 20:02 | HHI.PR ---
Subjective Subjective Notes extubated and breathing easily Objective Vitals/I&O Vital Signs Date Time Temp Pulse Resp B/P Pulse Ox O2 Delivery O2 Flow Rate FiO2 03/23/16 18:00 84 03/23/16 16:00 98.9 25 142/65 96 03/23/16 15:06 Venturi Mask 6.00 50 Labs Laboratory Tests Test 03/23/16 03/23/16 04:16 07:45 White Blood Count 10.6 Red Blood Count 3.56 Hemoglobin 10.9 Hematocrit 31.7 Mean Corpuscular Volume 88.9 Mean Corpuscular Hemoglobin 30.5 Mean Corpuscular Hemoglobin 34.3 Concent Red Cell Distribution Width 14.1 Platelet Count 144 Mean Platelet Volume 7.0 Sodium Level 138 Potassium Level 3.9 Chloride Level 103 Carbon Dioxide Level 30.8 Anion Gap 4 Blood Urea Nitrogen 22 Creatinine 0.68 Estimat Glomerular Filtration 110 Rate Random Glucose 181 Calcium Level 7.3 Protein Corrected Calcium 8.8 Phosphorus Level 1.2 Total Protein 4.5 Blood Gas Puncture Site RT RADIAL Blood Gas Patient Temperature 98.6 Blood Gas HCO3 29 Blood Gas Base Excess 4.3 Blood Gas Oxygen Saturation 95 Arterial Blood pH 7.37 Arterial Blood Partial 53 Pressure CO2 Arterial Blood Partial 87 Pressure O2 Arterial Blood Oxygen Content 14.0 Arterial Blood 1.3 Carboxyhemoglobin Arterial Blood Methemoglobin 1.1 Blood Gas Hemoglobin 10.5 Oxygen Delivery Device NASAL CANNULA Blood Gas Liter Flow 4 Date/Time Procedure Status Source Growth 03/18/16 23:43 Urine Culture - Final Complete Urine Random Urine Proteus Mirabilis Lungs: Clear Abdomen: Non-distended, Non-tender Extremities: Other Narrative Exam Holcomb dry and intact; wound without erythema A/P Assessment and Plan Assessment: SBO, secondary to internal hernia with ischemia UTI Stable, improved Plan: Keep in ISC today Keep NG until bowel activity Antibiotics for UTI already started Mahesh Cordon MD Mar 23, 2016 20:02
[2016-03-23] MEDS: FINASTERIDE 5 MG TAB PO SCH (21:21)
[2016-03-24] VITALS (19 sets, daily range): BP systolic 100–126; BP diastolic 54–67; PULSE 68–108; RESP 15–23; TEMP 97.4–99.2; O2SAT 93–100
[2016-03-24] MEDS: LEVOFLOXACIN 500 MG PREMIX INJ 100 ML IV SCH (00:38)
[2016-03-24] MEDS: ACETAMINOPHEN 325 MG TAB PO PRN (00:41)
[2016-03-24] MEDS: MORPHINE SULFATE 4 MG/ML INJ IV PUSH PRN (01:05)
[2016-03-24] MEDS: RESP: ALBUTEROL 2.5 MG/IPRATROPIUM 0.5 MG NEB (PRN) NEB (02:14)
[2016-03-24 04:44] LABS: BLOOD GAS BASE EXCESS 0.9 mmol/L (-2-2); BLOOD GAS CARBOXYHEMOGLOBIN 1.5 % (0-4); BLOOD GAS HCO3 26 mmol/L (22-26); BLOOD GAS METHEMOGLOBIN 1.1 % (0-2); BLOOD GAS O2 HGB SATURATION 94 % (90-100); BLOOD GAS OXYGEN CONTENT 13.5 Vol % (12.0-20.0); BLOOD GAS PCO2 48 mmHg (38-42); BLOOD GAS PO2 84 mmHg (61-120); BLOOD GAS TOTAL HGB 10.1 G/DL (12.0-16.0); CRITICAL VALUE YES; DRAW SITE RT RADIAL; FIO2 35 %; OXYGEN DEVICE BIPAP 10/5PEEP/8; TEMP CORR TO 98.6
[2016-03-24 04:45] LABS: NUMBER OF ARTERIAL PUNCTURES 1; STAT NO; ULNAR PULSE Y
[2016-03-24] MEDS: DEXT 5%-NACL 0.45% 1000 ML INJ 1,000 ML IV SCH ×3 (04:54→17:53)
--- NOTE | 2016-03-24 05:28 | RADRPT ---
EXAM DATE/TIME: 03/24/2016 03:08 [facility] COMPARISON: CHEST SINGLE AP, March 22, 2016, 11:49. INDICATIONS : Pneumonia MEDICAL HISTORY : Carcinoma, gastric. SURGICAL HISTORY : None. ENCOUNTER: Subsequent ACUITY: 3 days PAIN SCORE: Non-responsive. LOCATION: Bilateral chest FINDINGS: A single view of the chest demonstrates development of almost complete opacification left hemithorax. There is some volume loss. Patchy opacities remain in the right lower lobe. Right jugular central li ne in stable position. The cardiomediastinal contours are unremarkable. Osseous structures are intac t. CONCLUSION: 1. Interval development of almost complete opacification of left hemithorax, likely mucous plugging a nd atelectasis. 2. Persistent right basilar patchy opacities. Roland Weber MD on March 24, 2016 at 5:25 Board Certified Radiologist. This report was verified electronically.
[2016-03-24 05:37] LABS: AUTOMATED NEUTROPHIL # 11.6 TH/MM3 (1.8-7.7); BASOPHIL % 0.1 % (0.0-2.0); EOSINOPHIL # 0.1 TH/MM3 (0-0.4); EOSINOPHIL % 0.4 % (0.0-4.0); HEMATOCRIT 30.5 % (39.0-51.0); LYMPH % 4.8 % (9.0-44.0); LYMPHOCYTE # 0.7 TH/MM3 (1.0-4.8); MEAN CELL VOLUME 90.1 FL (80.0-100.0); MEAN CORPUSCULAR HGB CONC 33.3 % (32.0-36.0); NEUT % 82.7 % (16.0-70.0); PLATELET COUNT 140 TH/MM3 (150-450); RED BLOOD COUNT 3.38 MIL/MM3 (4.50-5.90); RED CELL DISTRIBUTION WIDTH 14.2 % (11.6-17.2)
[2016-03-24 05:59] LABS: HEMO FLAGS AUTO DIFF
[2016-03-24 06:18] LABS: MAGNESIUM 1.9 MG/DL (1.5-2.5); POTASSIUM 3.9 MEQ/L (3.5-5.1); TOTAL BILIRUBIN ADULT 0.5 MG/DL (0.2-1.0)
[2016-03-24] MEDS: LEVOTHYROXINE SODIUM 112 MCG TAB PO SCH (06:45)
[2016-03-24] MEDS: metroNIDAZOLE 500 MG INJ 100 ML IV SCH ×3 (06:45→21:25)
[2016-03-24] MEDS: ISOSORBIDE MONONITRATE 20 MG TAB PO SCH (06:45)
[2016-03-24] MEDS: INSULIN ASPART SUPPLEMENTAL SCALE SQ SCH ×4 (06:46→22:03)
[2016-03-24] MEDS: CHLORHEXIDINE 0.12% (ORAL KIT) 15 ML CUP MT SCH ×2 (08:00→21:26)
[2016-03-24] MEDS: LACTOBACILLUS ACIDOPHILUS TAB PO SCH ×2 (08:19→21:25)
[2016-03-24] MEDS: BRIMONIDINE TARTRATE 0.15% OPHT SOLN 5 ML BTL RIGHT EYE SCH ×2 (08:20→21:25)
[2016-03-24] MEDS: TIMOLOL MALEATE 0.5% OPHT SOLN 5 ML BTL RIGHT EYE SCH ×2 (08:20→21:26)
[2016-03-24] MEDS: FLUoxetine HCL 20 MG CAP PO SCH (08:20)
[2016-03-24] MEDS: SODIUM CHLORIDE 0.9% FLUSH 5 ML FLUSH IVF SCH (08:21)
[2016-03-24] MEDS ORDERED: SUCCINYLCHOLINE CHLORIDE 200 MG/10 ML VIAL IV PUSH ONE (09:00)
[2016-03-24] MEDS ORDERED: ETOMIDATE 20 MG/10 ML VIAL IV PUSH ONE (09:00)
[2016-03-24 09:41] LABS: BANDS 7 % (0-6); NEUTROPHIL # MANUAL DIFF 11.3 TH/MM3 (1.8-7.7); POLYS (SEG NEUTROPHILS) 74 % (16-70); TOXIC GRANULATION 1+ (NORMAL); WBC DIFF SAMPLE 100
[2016-03-24 09:42] LABS: PLATELET ESTIMATE SMEAR LOW (NORMAL); PLATELET MORPHOLOGY NORMAL (NORMAL); SCAN/DIFF FINAL DIFF MANUAL
[2016-03-24] MEDS ORDERED: Vancomycin Consult Pharmacy 1 EA OTHER SCH (10:30)
[2016-03-24] MEDS: NOREPINEPHRINE INJ 4 MG in SODIUM CHLOR 0.9% 250 ML INJ 246 ML IV SCH ×2 (10:41→18:13)
--- NOTE | 2016-03-24 10:58 | RADRPT ---
EXAM DATE/TIME: 03/24/2016 10:32 [facility] COMPARISON: CHEST SINGLE AP, March 22, 2016, 11:49. CHEST SINGLE AP, March 24, 2016, 3:08. INDICATIONS : Post bronchocopy and ET tube placement. MEDICAL HISTORY : Carcinoma, gastric. SURGICAL HISTORY : Stomach surgery to remove cancer. ENCOUNTER: Subsequent ACUITY: 1 week PAIN SCORE: Non-responsive. LOCATION: Bilateral chest FINDINGS: 2 AP portable views of the chest are performed. There is an endotracheal tube projecting over the tra roseline with the tip 4 cm above the level of the kristel. There is a gastric tube with the proximal port just at the level of the GE junction. There is a right-sided central line with the tip overlying the region of the distal SVC. The heart size is grossly normal. Pulmonary vasculature is normal in calibe r. There are bilateral hazy opacities overlying the lower lungs consistent with pleural effusions. CONCLUSION: Lines and tubes as noted above. Bilateral pleural effusions. Sil Andres MD on March 24, 2016 at 10:53 Board Certified Radiologist. This report was verified electronically.
[2016-03-24] MEDS ORDERED: VANCOMYCIN INJ 1,500 MG in SODIUM CHLORID 0.9% 500 ML INJ 500 ML IV ONE (11:00)
[2016-03-24] MEDS: RESP: ACETYLCYSTEINE 20% 30 ML NEB NEB SCH ×4 (12:00→23:26)
[2016-03-24] MEDS: RESP: ALBUTEROL 2.5 MG/IPRATROPIUM 0.5 MG NEB (SCH) NEB ×4 (12:00→23:26)
[2016-03-24 12:27] LABS: BLOOD GAS BASE EXCESS 0.9 mmol/L (-2-2); BLOOD GAS CARBOXYHEMOGLOBIN 1.2 % (0-4); BLOOD GAS HCO3 27 mmol/L (22-26); BLOOD GAS O2 HGB SATURATION 97 % (90-100); BLOOD GAS OXYGEN CONTENT 15.3 Vol % (12.0-20.0); BLOOD GAS PCO2 54 mmHg (38-42); BLOOD GAS PO2 157 mmHg (61-120); CRITICAL VALUE YES; OXYGEN DEVICE VENTILATOR; TEMP CORR TO 98.6
[2016-03-24 12:28] LABS: DRAW SITE LT RADIAL; FIO2 60 %; NUMBER OF ARTERIAL PUNCTURES 1; STAT NO; ULNAR PULSE Y; VENT SETTINGS AC/VT550//R12/PEEP10
--- NOTE | 2016-03-24 15:51 | HHI.CCPN ---
Subjective Remarks/Hospital Course This is a 89-year-old male. Date of admission 03/18/2016. Date of consultation 03/21/2016. Past medical history includes bilateral cataracts, hypertension, disability, hypothyroidism, insomnia and history of gastric cancer status post partial gastrectomy and history of multiple inguinal hernia repairs. He presented to [facility] on 03/18 with acute onset abdominal pain. No bowel movements for several days. CT abdomen and pelvis revealed there is a small bowel position the right upper quadrant pelvis with a "twisting action likely incarceration. Hospital submitted patient general surgery was consulted. She had NG tube placed in cerebral abdominal exams and x-rays performed. Patient's abdominal pain persisted of nausea and vomiting. The patient eventually aborted with Dr. Cordon. Today, patient underwent exploratory laparoscopy/lyse adhesions with small bowel 's resection secondary to ischemic jejunum loop an intestinal hernia. 2600 crystalloid. Minimal blood loss. 250 cc urine output. Patient has been on Levaquin/Flagyl since/5D UTI. This be continued. Patient is currently arousable on the ventilator. We are asked to watch the patient overnight with possible extubation in a.m. Objective Vital Signs Date Time Temp Pulse Resp B/P Pulse Ox O2 Delivery O2 Flow Rate FiO2 03/24/16 14:00 88 03/24/16 12:30 100 03/24/16 12:02 100 03/24/16 12:00 98.0 18 120/56 03/24/16 10:00 15.00 03/24/16 10:00 Mechanical Ventilator Intake and Output 03/23/16 03/23/16 03/24/16 08:00 16:00 00:00 Intake Total 1208 ml 805 ml 961 ml Output Total 760 ml 575 ml 725 ml Balance 448 ml 230 ml 236 ml Result Diagram: 03/24/16 0525 03/24/16 0525 Other Results Laboratory Tests Test 03/24/16 03/24/16 04:39 12:15 Blood Gas Puncture Site RT RADIAL LT RADIAL Blood Gas Patient Temperature 98.6 98.6 Blood Gas HCO3 26 mmol/L 27 mmol/L (22-26) (22-26) Blood Gas Base Excess 0.9 mmol/L 0.9 mmol/L (-2-2) (-2-2) Blood Gas Oxygen Saturation 94 % (90-100) 97 % (90-100) Arterial Blood pH 7.35 7.31 (7.380-7.420) (7.380-7.420) Arterial Blood Partial 48 mmHg (38-42) 54 mmHg (38-42) Pressure CO2 Arterial Blood Partial 84 mmHg 157 mmHg Pressure O2 (61-120) (61-120) Arterial Blood Oxygen Content 13.5 Vol % 15.3 Vol % (12.0-20.0) (12.0-20.0) Arterial Blood 1.5 % (0-4) 1.2 % (0-4) Carboxyhemoglobin Arterial Blood Methemoglobin 1.1 % (0-2) 1.0 % (0-2) Blood Gas Hemoglobin 10.1 G/DL 11.0 G/DL (12.0-16.0) (12.0-16.0) Oxygen Delivery Device BIPAP VENTILATOR 10/5PEEP/8 Blood Gas Inspired Oxygen 35 % 60 % Blood Gas Ventilator Setting AC/VT550//R12/PEEP10 Imaging Last Impressions Chest X-Ray 03/21/16 1527 Signed Impressions: Service Date/Time: Monday, March 21, 2016 15:21 - CONCLUSION: 1. No pneumothorax status post placement of right internal jugular central line which has its tip in the superior vena cava. 2. Persistent malposition of the tip of the left subclavian central line which is located in the neck in the expected region of the internal jugular vein. 3. No significant change in the bibasilar patchiness consistent with a atelectasis and/or mild infiltrates. Tyrese Zamudio MD Abdomen X-Ray 03/20/16 0600 Signed Impressions: Service Date/Time: Sunday, March 20, 2016 05:55 - CONCLUSION: Increasing gaseous distention of loops of small bowel in the left abdomen. Jian Kessler MD Abdomen/Pelvis CT 03/18/16 1511 Signed Impressions: Service Date/Time: March 16:24 - CONCLUSION: Small bowel obstruction. Berlin Metzger MD Objective Remarks GENERAL: 89-year-old male, critically ill currently orotracheally intubated SKIN: Warm and dry. No rash HEAD: Atraumatic. Normocephalic. EYES: Right pupil is 8 mm and fixed. Left pupil is pinpoint and minimally reactive. No scleral icterus. No injection or drainage. ENT: No nasal bleeding or discharge. Mucous membranes pink and moist. NECK: Trachea midline. No JVD. Right IJ CVL clean dry and intact. CARDIOVASCULAR: Regular rate and rhythm. S1, S2. No S4. Distant. No murmur appreciated RESPIRATORY: Clear to auscultation. Breath sounds equal bilaterally. GASTROINTESTINAL: Abdomen soft, non-tender, nondistended. Midline abpad place without drainage. Hypoactive bowel sounds appreciated MUSCULOSKELETAL: Extremities without significant peripheral edema. No obvious deformities. NEUROLOGICAL: Right pupil is fixed and dilated. Left pupil Reacts. Positive gag. Moves all 4 extremities to noxious stimuli.. No obvious cranial nerve deficits. Motor grossly within normal limits Date of Insertion: Mar 21, 2016 Line: Central Venous Catheter Side: Right Location: Internal, Jugular A/P Assessment and Plan Neuro/Psych: Cataract Macular degeneration Known fixed right pupil secondary to traumatic cataract Depression Patient required to be re-intubated due to complete opacification of left hemothorax Propofol for sedation while intubated OSMAN goal -2 Continue fluoxetine Continue Alphagan D 1 drop right eye twice a day. . Patient is on Timoptic xc 0.25% 1 drop right eye at night. Continue He is on trazodone 50 at night for depression. This is been held CV: Hypertension Dyslipidemia Currently on D5 1/2 normal saline at 125 cc an hour. Currently hemodynamically stable On atorvastatin 40 mg by mouth daily at home. This is been held for dyslipidemia She is on Imdur 30 mg by mouth daily. This be held Resp: VDRF Patient required to be re-intubated due to complete opacification of left hemothorax ACV 12/500/5/100 Ventilator bundle Bronchodilator therapy if needed every 2 hours Bronchoscopy GI: Postop day #3 exploratory laparotomy/lysis of adhesions with small bowel resection and anastomosis secondary to ischemic jejunum in internal hernia History of duodenal stomach ulcers removal/vagotomy and cholecystectomy 1974 History of inguinal hernia repair 2 History of benign colon polyps History of gastric cancer chest 36 post chemotherapy/gastric upper removal with lymph node removal 2002 History abdominal hernia repair with mesh replacement revision due to bowel obstruction CT abdomen/pelvis 03/18 revealed small bowel dilatation the right upper quadrant and pelvis. Possible "twisting". Status post Small Bowel Resection Protonix for GI prophylaxis : History of prostate cancer History of benign bladder mass Lassiter catheter for accurate I's and O's in critically ill patient Patient is on dutasteride 0.5 mg at night for BPH. Endo: Hypothyroidism Diabetes mellitus Continue Levoxyl 112 g daily for hypothyroidism Sliding scale insulin with Accu-Cheks every 6 to maintain euglycemia. Holding metformin 1000 mg by mouth daily for diabetes. Renal: Acute kidney injury - resolved Currently currently within normal limits. Avoid nephrotoxic drugs Heme/Onc: History of basal carcinoma History of prostate cancer History of gastric cancer ID: Proteus UTI Levaquin/Flagyl day #7 since 03/18 Pertinent cultures UA -Proteus CBC increased on Levaquin/Flagyl ill add Vancomycin to cover MRSA and de-escalate following cultures FEN: Replacing electrolytes as clinically indicated MSK: History of balloon kyphoplasty L2 2004 PT/OT evaluate and treat Access - Right IJ CVL day 2 Prophylaxis - GI - Protonix - DVT - SCD/pharmacological prophylaxis when okay with general surgery Critical Care: The total critical care time was 35 minutes. Time to perform other separately billable procedures was not included in the critical care time. 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 WIRE STRAIGHTENER. Care plan discussed and all questions answered. Eric Mcintosh MD Mar 24, 2016 15:51
--- NOTE | 2016-03-24 15:52 | PD.PROCEDR ---
Procedure Note Procedure Bronchoscopy procedure note: DATE OF PROCEDURE: 03/24/16 PREPROCEDURE DIAGNOSIS: Bilateral pulmonary infiltrates. POSTOPERATIVE DIAGNOSES: 1. Diffuse tracheobronchitis. 2. Bilateral pneumonia. PROCEDURE PERFORMED: Fiberoptic bronchoscopy with transbronchial washout ATTENDING: Eric Mcintosh MD MARINE MAMMAL TRAINER: None. CONSCIOUS SEDATION: 1. Fentanyl 100 mg IV push. 2. Propofol After appropriate consent was obtained from the patient's NOK, all risks and benefits were explained. A bronchofiberscope was inserted into the ETT, advanced to the trachea. Systematic inspection was then carried out of the entire tracheobronchial tree. The bronchoscope was then advanced to the right upper lobe and the bronchoscope was wedged into the apical segment. Bronchoalveolar lavage was then performed at this segment utilizing 60 mL of saline. Bronchoscope was then pulled back at the level of the kristel and advanced into the right middle lobe. Bronchial washings were obtained from the medial and lateral segments of the right middle lobe. Bronchoscope was then pulled back and then advanced into the right lower lobe. When this was completed , the additional bronchial washings were obtained from right lower lobe and right middle lobe. The area was then inspected for any acute hemorrhage, but none were seen. The bronchoscope was withdrawn. The patient tolerated the procedure well. There were no complications. Eric Mcintosh MD Mar 24, 2016 15:52
[2016-03-24] MEDS: PROPOFOL 1000 MG/100 ML IV SCH (18:11)
--- NOTE | 2016-03-24 18:38 | HHI.PR ---
Subjective Subjective Notes Patient required reintubation today. Large amount purulent sputum removed with bronchoscopy. Objective Vitals/I&O Vital Signs Date Time Temp Pulse Resp B/P Pulse Ox O2 Delivery O2 Flow Rate FiO2 03/24/16 18:00 99 03/24/16 16:06 100 50 03/24/16 16:00 97.4 18 126/58 03/24/16 10:00 15.00 03/24/16 10:00 Mechanical Ventilator Labs Laboratory Tests Test 03/24/16 03/24/16 03/24/16 04:39 05:25 12:15 Blood Gas Puncture Site RT RADIAL LT RADIAL Blood Gas Patient Temperature 98.6 98.6 Blood Gas HCO3 26 27 Blood Gas Base Excess 0.9 0.9 Blood Gas Oxygen Saturation 94 97 Arterial Blood pH 7.35 7.31 Arterial Blood Partial 48 54 Pressure CO2 Arterial Blood Partial 84 157 Pressure O2 Arterial Blood Oxygen Content 13.5 15.3 Arterial Blood 1.5 1.2 Carboxyhemoglobin Arterial Blood Methemoglobin 1.1 1.0 Blood Gas Hemoglobin 10.1 11.0 Oxygen Delivery Device BIPAP VENTILATOR 10/5PEEP/8 Blood Gas Inspired Oxygen 35 60 White Blood Count 14.0 Red Blood Count 3.38 Hemoglobin 10.1 Hematocrit 30.5 Mean Corpuscular Volume 90.1 Mean Corpuscular Hemoglobin 30.0 Mean Corpuscular Hemoglobin 33.3 Concent Red Cell Distribution Width 14.2 Platelet Count 140 Mean Platelet Volume 7.0 Neutrophils (%) (Auto) 82.7 Lymphocytes (%) (Auto) 4.8 Monocytes (%) (Auto) 12.0 Eosinophils (%) (Auto) 0.4 Basophils (%) (Auto) 0.1 Neutrophils # (Auto) 11.6 Lymphocytes # (Auto) 0.7 Monocytes # (Auto) 1.7 Eosinophils # (Auto) 0.1 Basophils # (Auto) 0.0 CBC Comment AUTO DIFF Differential Total Cells 100 Counted Neutrophils % (Manual) 74 Band Neutrophils % 7 Lymphocytes % 9 Monocytes % 10 Neutrophils # (Manual) 11.3 Differential Comment FINAL DIFF MANUAL Toxic Granulation 1+ Platelet Estimate LOW Platelet Morphology Comment NORMAL Basophilic Stippling FAINT Sodium Level 138 Potassium Level 3.9 Chloride Level 103 Carbon Dioxide Level 29.0 Anion Gap 6 Blood Urea Nitrogen 17 Creatinine 0.61 Estimat Glomerular Filtration 124 Rate Random Glucose 180 Calcium Level 7.4 Protein Corrected Calcium 9.0 Phosphorus Level 1.5 Magnesium Level 1.9 Total Bilirubin 0.5 Aspartate Amino Transf 10 (AST/SGOT) Alanine Aminotransferase 18 (ALT/SGPT) Alkaline Phosphatase 41 Total Protein 4.3 Albumin 1.7 Blood Gas Ventilator Setting AC/VT550//R12/PEEP10 Date/Time Procedure Status Source Growth 03/24/16 10:00 Gram Stain - Final Resulted Bronchial Washings Left Upper Lobe 03/24/16 10:00 Bronchial Culture Resulted Bronchial Washings Left Upper Lobe Pending 03/24/16 10:00 Fungal Smear - Final Resulted Bronchial Washings Left Upper Lobe NO FUNGAL ELEMENTS SEEN. 03/24/16 10:00 Fungal Culture Resulted Bronchial Washings Left Upper Lobe Pending 03/24/16 10:00 Acid Fast Stain Received Bronchial Washings Left Upper Lobe Pending 03/24/16 10:00 Mycobacterial Culture Received Bronchial Washings Left Upper Lobe Pending 03/24/16 10:00 Cancelled Bronchial Brushings Left Upper Lobe Lungs: Clear Abdomen: Non-distended Narrative Exam [place] dry and intact; wound without erythema Minimal drainage from inferior portion of wound. A/P Assessment and Plan Assessment: POD # 3 resection small bowel. Re-Intubated due to respiratory failure. Pneumonia, possibly Staph etiology; culture in progress. SBO, secondary to internal hernia with ischemia, s/p bowel resection and anastomosis. UTI Plan: Keep NG until bowel activity; increase trickle feeding. Antibiotics for UTI already started Mahesh Cordon MD Mar 24, 2016 18:38
[2016-03-24] MEDS: FINASTERIDE 5 MG TAB PO SCH (21:24)
[2016-03-25] VITALS (16 sets, daily range): BP systolic 86–142; BP diastolic 51–62; PULSE 64–124; RESP 16–22; TEMP 98.4–99.2; O2SAT 98–100
[2016-03-25] MEDS: DEXT 5%-NACL 0.45% 1000 ML INJ 1,000 ML IV SCH ×3 (00:19→14:58)
[2016-03-25] MEDS: RESP: ALBUTEROL 2.5 MG/IPRATROPIUM 0.5 MG NEB (SCH) NEB ×6 (03:11→23:20)
[2016-03-25 04:05] LABS: BASOPHIL % 0.1 % (0.0-2.0); EOSINOPHIL # 0.1 TH/MM3 (0-0.4); EOSINOPHIL % 0.8 % (0.0-4.0); HEMATOCRIT 32.6 % (39.0-51.0); LYMPH % 5.8 % (9.0-44.0); MEAN CELL VOLUME 90.2 FL (80.0-100.0); MEAN CORPUSCULAR HGB CONC 33.2 % (32.0-36.0); MONO % 13.7 % (0.0-8.0); NEUT % 79.6 % (16.0-70.0); PLATELET COUNT 164 TH/MM3 (150-450); RED BLOOD COUNT 3.61 MIL/MM3 (4.50-5.90); RED CELL DISTRIBUTION WIDTH 14.4 % (11.6-17.2); WHITE BLOOD COUNT 16.4 TH/MM3 (4.0-11.0)
[2016-03-25 04:14] LABS: HEMO FLAGS AUTO DIFF
[2016-03-25 04:24] LABS: ALT (GPT) 17 U/L (12-78); ANION GAP 5 MEQ/L (5-15); AST (GOT) 12 U/L (15-37); BICARBONATE 27.7 MEQ/L (21.0-32.0); BLOOD UREA NITROGEN 15 MG/DL (7-18); CHLORIDE 102 MEQ/L (98-107); GLOMERULAR FILTRATION RATE 92 ML/MIN (>89); MAGNESIUM 1.8 MG/DL (1.5-2.5); POTASSIUM 3.6 MEQ/L (3.5-5.1); SODIUM (NA) 135 MEQ/L (136-145)
[2016-03-25 04:25] LABS: ALKALINE PHOSPHATASE 52 U/L (45-117); TOTAL BILIRUBIN ADULT 0.3 MG/DL (0.2-1.0)
[2016-03-25 04:54] LABS: BANDS 1 % (0-6); METAMYELOCYTES 1 % (0-1); NEUTROPHIL # MANUAL DIFF 15.3 TH/MM3 (1.8-7.7); PLATELET ESTIMATE SMEAR NORMAL (NORMAL); PLATELET MORPHOLOGY NORMAL (NORMAL); POLYS (SEG NEUTROPHILS) 91 % (16-70); SCAN/DIFF FINAL DIFF MANUAL; WBC DIFF SAMPLE 100
[2016-03-25 04:55] LABS: TOXIC GRANULATION 2+ (NORMAL)
[2016-03-25 05:04] LABS: BLOOD GAS BASE EXCESS -0.1 mmol/L (-2-2); BLOOD GAS CARBOXYHEMOGLOBIN 0.2 % (0-4); BLOOD GAS HCO3 24 mmol/L (22-26); BLOOD GAS METHEMOGLOBIN 0.6 % (0-2); BLOOD GAS O2 HGB SATURATION 97 % (90-100); BLOOD GAS OXYGEN CONTENT 18.3 Vol % (12.0-20.0); BLOOD GAS PCO2 41 mmHg (38-42); BLOOD GAS PO2 162 mmHg (61-120); BLOOD GAS TOTAL HGB 13.2 G/DL (12.0-16.0); CRITICAL VALUE NO; OXYGEN DEVICE VENTILATOR; TEMP CORR TO 98.6
--- NOTE | 2016-03-25 05:04 | RADRPT ---
EXAM DATE/TIME: 03/25/2016 04:03 [facility] COMPARISON: CHEST SINGLE AP, March 24, 2016, 10:32. INDICATIONS : Shortness of breath, possible pulmonary disease. MEDICAL HISTORY : Carcinoma, gastric. SURGICAL HISTORY : Abdominal surgery ENCOUNTER: Subsequent ACUITY: 1 week PAIN SCORE: Non-responsive. LOCATION: Bilateral chest FINDINGS: A single view of the chest demonstrates hyperinflation and bibasilar densities. Probable bilateral pl eural effusions as well. Heart normal in size. Nasogastric tube with tip in stomach. Endotracheal tub e and right jugular central line in stable position. Osseous structures are intact. Postsurgical angely nges at the GE junction. CONCLUSION: 1. Bibasilar densities likely worsening pleural effusions and atelectasis. 2. Support lines and tubes are unchanged. Roland Weber MD on March 25, 2016 at 5:01 Board Certified Radiologist. This report was verified electronically.
[2016-03-25 05:05] LABS: DRAW SITE LT RADIAL; FIO2 50 %; NUMBER OF ARTERIAL PUNCTURES 1; STAT NO; ULNAR PULSE PRESENT; VENT SETTINGS VAC16/550/PEEP10
[2016-03-25] MEDS: PROPOFOL 1000 MG/100 ML IV SCH (05:59)
[2016-03-25] MEDS ORDERED: POTASSIUM PHOSPHATE INJ 15 MMOL in SODIUM CHLOR 0.9% 250 ML INJ 250 ML IV ONE (06:00)
[2016-03-25] MEDS: LEVOTHYROXINE SODIUM 112 MCG TAB PO SCH (06:07)
[2016-03-25] MEDS: metroNIDAZOLE 500 MG INJ 100 ML IV SCH ×3 (06:07→22:07)
[2016-03-25] MEDS: NOREPINEPHRINE INJ 4 MG in SODIUM CHLOR 0.9% 250 ML INJ 246 ML IV SCH (06:16)
[2016-03-25] MEDS: INSULIN ASPART SUPPLEMENTAL SCALE SQ SCH ×4 (06:17→22:06)
[2016-03-25] MEDS: ISOSORBIDE MONONITRATE 20 MG TAB PO SCH (07:00)
[2016-03-25] MEDS: RESP: ACETYLCYSTEINE 20% 30 ML NEB NEB SCH ×4 (07:42→19:48)
[2016-03-25] MEDS: FLUoxetine HCL 20 MG CAP PO SCH (08:35)
[2016-03-25] MEDS: LACTOBACILLUS ACIDOPHILUS TAB PO SCH ×2 (08:35→20:05)
[2016-03-25] MEDS: SODIUM CHLORIDE 0.9% FLUSH 5 ML FLUSH IVF SCH (08:36)
[2016-03-25] MEDS: BRIMONIDINE TARTRATE 0.15% OPHT SOLN 5 ML BTL RIGHT EYE SCH ×2 (08:36→20:06)
[2016-03-25] MEDS: TIMOLOL MALEATE 0.5% OPHT SOLN 5 ML BTL RIGHT EYE SCH ×2 (08:36→20:06)
[2016-03-25] MEDS: CHLORHEXIDINE 0.12% (ORAL KIT) 15 ML CUP MT SCH ×2 (08:36→22:08)
--- NOTE | 2016-03-25 09:31 | HHI.CCPN ---
Subjective Remarks/Hospital Course This is a 89-year-old male. Date of admission 03/18/2016. Date of consultation 03/21/2016. Past medical history includes bilateral cataracts, hypertension, disability, hypothyroidism, insomnia and history of gastric cancer status post partial gastrectomy and history of multiple inguinal hernia repairs. He presented to [facility] on 03/18 with acute onset abdominal pain. No bowel movements for several days. CT abdomen and pelvis revealed there is a small bowel position the right upper quadrant pelvis with a "twisting action likely incarceration. Hospital submitted patient general surgery was consulted. She had NG tube placed in cerebral abdominal exams and x-rays performed. Patient's abdominal pain persisted of nausea and vomiting. The patient eventually aborted with Dr. Cordon. Patient underwent exploratory laparoscopy/lyse adhesions with small bowel's resection secondary to ischemic jejunum loop an intestinal hernia. 2600 crystalloid. Minimal blood loss. 250 cc urine output. Patient has been on Levaquin/Flagyl since/5D UTI. This be continued. Patient is currently arousable on the ventilator. We are asked to watch the patient overnight with possible extubation in a.m. Objective Vital Signs Date Time Temp Pulse Resp B/P Pulse Ox O2 Delivery O2 Flow Rate FiO2 03/25/16 07:42 99 50 03/25/16 06:00 102 03/25/16 04:00 98.6 18 142/62 03/24/16 19:00 Mechanical Ventilator 03/24/16 10:00 15.00 Intake and Output 03/24/16 03/24/16 03/25/16 08:00 16:00 00:00 Intake Total 1152 ml 592 ml 2000 ml Output Total 615 ml 410 ml 350 ml Balance 537 ml 182 ml 1650 ml Result Diagram: 03/25/16 0325 03/25/16 0325 Other Results Laboratory Tests Test 03/24/16 03/25/16 12:15 04:52 Blood Gas Puncture Site LT RADIAL LT RADIAL Blood Gas Patient Temperature 98.6 98.6 Blood Gas HCO3 27 mmol/L 24 mmol/L (22-26) (22-26) Blood Gas Base Excess 0.9 mmol/L -0.1 mmol/L (-2-2) (-2-2) Blood Gas Oxygen Saturation 97 % (90-100) 97 % (90-100) Arterial Blood pH 7.31 7.39 (7.380-7.420) (7.380-7.420) Arterial Blood Partial 54 mmHg (38-42) 41 mmHg (38-42) Pressure CO2 Arterial Blood Partial 157 mmHg 162 mmHg Pressure O2 (61-120) (61-120) Arterial Blood Oxygen Content 15.3 Vol % 18.3 Vol % (12.0-20.0) (12.0-20.0) Arterial Blood 1.2 % (0-4) 0.2 % (0-4) Carboxyhemoglobin Arterial Blood Methemoglobin 1.0 % (0-2) 0.6 % (0-2) Blood Gas Hemoglobin 11.0 G/DL 13.2 G/DL (12.0-16.0) (12.0-16.0) Oxygen Delivery Device VENTILATOR VENTILATOR Blood Gas Ventilator Setting AC/VT550//R12/PEEP10 VAC16/550/PEEP10 Blood Gas Inspired Oxygen 60 % 50 % Imaging Last Impressions Chest X-Ray 03/21/16 1527 Signed Impressions: Service Date/Time: Monday, March 21, 2016 15:21 - CONCLUSION: 1. No pneumothorax status post placement of right internal jugular central line which has its tip in the superior vena cava. 2. Persistent malposition of the tip of the left subclavian central line which is located in the neck in the expected region of the internal jugular vein. 3. No significant change in the bibasilar patchiness consistent with a atelectasis and/or mild infiltrates. Tyrese Zamudio MD Abdomen X-Ray 03/20/16 0600 Signed Impressions: Service Date/Time: Sunday, March 20, 2016 05:55 - CONCLUSION: Increasing gaseous distention of loops of small bowel in the left abdomen. Jian Kessler MD Abdomen/Pelvis CT 03/18/16 1511 Signed Impressions: Service Date/Time: March 16:24 - CONCLUSION: Small bowel obstruction. Berlin Metzger MD Objective Remarks GENERAL: 89-year-old male, critically ill currently orotracheally intubated SKIN: Warm and dry. No rash HEAD: Atraumatic. Normocephalic. EYES: Right pupil is 8 mm and fixed. Left pupil is pinpoint and minimally reactive. No scleral icterus. No injection or drainage. ENT: No nasal bleeding or discharge. Mucous membranes pink and moist. NECK: Trachea midline. No JVD. Right IJ CVL clean dry and intact. CARDIOVASCULAR: Regular rate and rhythm. S1, S2. No S4. Distant. No murmur appreciated RESPIRATORY: Clear to auscultation. Breath sounds equal bilaterally. GASTROINTESTINAL: Abdomen soft, non-tender, nondistended. Midline abpad place without drainage. Hypoactive bowel sounds appreciated MUSCULOSKELETAL: Extremities without significant peripheral edema. No obvious deformities. NEUROLOGICAL: Right pupil is fixed and dilated. Left pupil Reacts. Positive gag. Moves all 4 extremities to noxious stimuli.. No obvious cranial nerve deficits. Motor grossly within normal limits Date of Insertion: Mar 21, 2016 Line: Central Venous Catheter Side: Right Location: Internal, Jugular A/P Assessment and Plan Respiratory failure - Patient required to be re-intubated due to complete opacification of left hemothorax 03/24 - ACV 12/500/5/100 - Ventilator bundle - Bronchodilator therapy if needed every 2 hours - Bronchoscopy performed 03/24 - improvement on CXR , will attempt SBT again today Cataract and Macular degeneration - Continue Alphagan D 1 drop right eye twice a day. . - continue Timoptic xc 0.25% 1 drop right eye at night. Depression - Trazodone 50 at night resume when extubated Hypertension - hemodynamically stable - normotensive - monitor Dyslipidemia - atorvastatin 40 mg resume when p.o. ok by GS Ischemic jejunum in internal hernia - Postop day #5 exploratory laparotomy - lysis of adhesions - small bowel resection - Vital at goal of 30 BPH - Patient is on dutasteride 0.5 mg at night for . Diabetes mellitus - Sliding scale insulin - Holding metformin while in the ICU Hypothyroidism - Levoxyl 112 g daily Access - Right IJ CVL day 4 Prophylaxis - GI - Protonix - DVT - SCD/pharmacological prophylaxis when okay with general surgery Critical Care: The total critical care time was 35 minutes. Time to perform other separately billable procedures was not included in the critical care time. 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 Eric Mcintosh MD Mar 25, 2016 09:31
[2016-03-25] MEDS: VANCOMYCIN 1,500 MG/NS 500 ML IV SCH ×2 (11:25)
--- NOTE | 2016-03-25 13:09 | HHI.PR ---
Subjective Subjective Notes Too weak to extubate today Objective Vitals/I&O Vital Signs Date Time Temp Pulse Resp B/P Pulse Ox O2 Delivery O2 Flow Rate FiO2 03/25/16 12:00 98.4 108 18 86/51 98 03/25/16 12:00 50 03/25/16 07:00 Mechanical Ventilator 03/24/16 10:00 15.00 Labs Laboratory Tests Test 03/25/16 03/25/16 03:25 04:52 White Blood Count 16.4 Red Blood Count 3.61 Hemoglobin 10.8 Hematocrit 32.6 Mean Corpuscular Volume 90.2 Mean Corpuscular Hemoglobin 30.0 Mean Corpuscular Hemoglobin 33.2 Concent Red Cell Distribution Width 14.4 Platelet Count 164 Mean Platelet Volume 7.6 Neutrophils (%) (Auto) 79.6 Lymphocytes (%) (Auto) 5.8 Monocytes (%) (Auto) 13.7 Eosinophils (%) (Auto) 0.8 Basophils (%) (Auto) 0.1 Neutrophils # (Auto) 13.0 Lymphocytes # (Auto) 1.0 Monocytes # (Auto) 2.2 Eosinophils # (Auto) 0.1 Basophils # (Auto) 0.0 CBC Comment AUTO DIFF Differential Total Cells 100 Counted Neutrophils % (Manual) 91 Band Neutrophils % 1 Lymphocytes % 4 Monocytes % 3 Neutrophils # (Manual) 15.3 Metamyelocytes 1 Differential Comment FINAL DIFF MANUAL Toxic Granulation 2+ Platelet Estimate NORMAL Platelet Morphology Comment NORMAL Sodium Level 135 Potassium Level 3.6 Chloride Level 102 Carbon Dioxide Level 27.7 Anion Gap 5 Blood Urea Nitrogen 15 Creatinine 0.79 Estimat Glomerular Filtration 92 Rate Random Glucose 250 Calcium Level 7.5 Phosphorus Level 1.0 Magnesium Level 1.8 Total Bilirubin 0.3 Aspartate Amino Transf 12 (AST/SGOT) Alanine Aminotransferase 17 (ALT/SGPT) Alkaline Phosphatase 52 Total Protein 4.7 Albumin 1.7 Blood Gas Puncture Site LT RADIAL Blood Gas Patient Temperature 98.6 Blood Gas HCO3 24 Blood Gas Base Excess -0.1 Blood Gas Oxygen Saturation 97 Arterial Blood pH 7.39 Arterial Blood Partial 41 Pressure CO2 Arterial Blood Partial 162 Pressure O2 Arterial Blood Oxygen Content 18.3 Arterial Blood 0.2 Carboxyhemoglobin Arterial Blood Methemoglobin 0.6 Blood Gas Hemoglobin 13.2 Oxygen Delivery Device VENTILATOR Blood Gas Ventilator Setting VAC16/550/PEEP10 Blood Gas Inspired Oxygen 50 Date/Time Procedure Status Source Growth 03/24/16 10:00 Gram Stain - Final Resulted Bronchial Washings Left Upper Lobe 03/24/16 10:00 Bronchial Culture Resulted Bronchial Washings Left Upper Lobe Pending 03/24/16 10:00 Fungal Smear - Final Resulted Bronchial Washings Left Upper Lobe NO FUNGAL ELEMENTS SEEN. 03/24/16 10:00 Fungal Culture Resulted Bronchial Washings Left Upper Lobe Pending 03/24/16 10:00 Acid Fast Stain Received Bronchial Washings Left Upper Lobe Pending 03/24/16 10:00 Mycobacterial Culture Received Bronchial Washings Left Upper Lobe Pending 03/24/16 10:00 Cancelled Bronchial Brushings Left Upper Lobe Lungs: Clear Abdomen: Non-distended, Post-op tenderness Extremities: Other (Edema in both arms) Narrative Exam [place] dry and intact; wound without erythema no drainage A/P Assessment and Plan Assessment: POD # 4 resection small bowel. Re-Intubated due to respiratory failure. Pneumonia, possibly Staph etiology; culture in progress. SBO, secondary to internal hernia with ischemia, s/p bowel resection and anastomosis. UTI Plan: Keep NG until bowel activity; increase trickle feeding. Keep intubated today. Antibiotics for UTI already started Discussed with family present; reviewed with Dr. Mcintosh (stock room manager) Mahesh Cordon MD Mar 25, 2016 13:09
[2016-03-25] MEDS ORDERED: ALBUMIN HUMAN 25% 25 GM/100 ML BAGP IV ONE (22:00)
[2016-03-25] MEDS: FINASTERIDE 5 MG TAB PO SCH (22:06)
[2016-03-25] MEDS: LEVOFLOXACIN 500 MG PREMIX INJ 100 ML IV SCH (23:02)
[2016-03-26] VITALS (17 sets, daily range): BP systolic 83–132; BP diastolic 51–69; PULSE 84–119; RESP 12–21; TEMP 97.1–99.2; O2SAT 95–100
[2016-03-26] MEDS: RESP: ALBUTEROL 2.5 MG/IPRATROPIUM 0.5 MG NEB (SCH) NEB ×5 (03:43→20:25)
[2016-03-26] MEDS: RESP: ACETYLCYSTEINE 20% 30 ML NEB NEB SCH ×6 (04:00→20:25)
[2016-03-26 04:39] LABS: AUTOMATED NEUTROPHIL # 11.2 TH/MM3 (1.8-7.7); BASOPHIL % 0.1 % (0.0-2.0); EOSINOPHIL # 0.1 TH/MM3 (0-0.4); EOSINOPHIL % 0.7 % (0.0-4.0); HEMATOCRIT 30.2 % (39.0-51.0); LYMPH % 4.6 % (9.0-44.0); LYMPHOCYTE # 0.6 TH/MM3 (1.0-4.8); MEAN CELL VOLUME 88.8 FL (80.0-100.0); MEAN CORPUSCULAR HEMOGLOBIN 30.4 PG (27.0-34.0); MEAN CORPUSCULAR HGB CONC 34.2 % (32.0-36.0); MONO % 11.8 % (0.0-8.0); NEUT % 82.8 % (16.0-70.0); PLATELET COUNT 144 TH/MM3 (150-450); WHITE BLOOD COUNT 13.5 TH/MM3 (4.0-11.0)
[2016-03-26 05:06] LABS: HEMO FLAGS AUTO DIFF
[2016-03-26 05:17] LABS: BICARBONATE 25.3 MEQ/L (21.0-32.0); CALCIUM-PROTEIN CORRECTED 8.7 MG/DL (8.5-10.1); MAGNESIUM 1.8 MG/DL (1.5-2.5); POTASSIUM 3.3 MEQ/L (3.5-5.1); TOTAL BILIRUBIN ADULT 0.7 MG/DL (0.2-1.0)
[2016-03-26 05:41] LABS: BLOOD GAS CARBOXYHEMOGLOBIN 1.3 % (0-4); BLOOD GAS HCO3 23 mmol/L (22-26); BLOOD GAS O2 HGB SATURATION 97 % (90-100); BLOOD GAS OXYGEN CONTENT 17.6 Vol % (12.0-20.0); BLOOD GAS PCO2 34 mmHg (38-42); BLOOD GAS PO2 132 mmHg (61-120); BLOOD GAS TOTAL HGB 12.8 G/DL (12.0-16.0); TEMP CORR TO 98.6
[2016-03-26 05:42] LABS: CRITICAL VALUE NO; DRAW SITE RT RADIAL; FIO2 40 %; NUMBER OF ARTERIAL PUNCTURES 1; OXYGEN DEVICE VENTILATOR; STAT NO; ULNAR PULSE PRESENT; VENT SETTINGS AC 16/550/10PEEP
[2016-03-26] MEDS ORDERED: POTASSIUM PHOSPHATE INJ 15 MMOL in SODIUM CHLOR 0.9% 250 ML INJ 250 ML IV ONE (06:15)
[2016-03-26] MEDS ORDERED: POTASSIUM CHLOR 40 MEQ PREMIX 100 ML IV ONE (06:15)
[2016-03-26] MEDS: metroNIDAZOLE 500 MG INJ 100 ML IV SCH ×3 (06:18→21:54)
[2016-03-26] MEDS: INSULIN ASPART SUPPLEMENTAL SCALE SQ SCH ×4 (06:18→20:27)
[2016-03-26] MEDS: ISOSORBIDE MONONITRATE 20 MG TAB PO SCH (06:19)
[2016-03-26] MEDS: LEVOTHYROXINE SODIUM 112 MCG TAB PO SCH (06:19)
--- NOTE | 2016-03-26 06:34 | RADRPT ---
EXAM DATE/TIME: 03/26/2016 05:26 [facility] COMPARISON: CHEST SINGLE AP, March 25, 2016, 4:03. INDICATIONS : Shortness of breath. MEDICAL HISTORY : Carcinoma, gastric. SURGICAL HISTORY : None. ENCOUNTER: Subsequent ACUITY: 1 week PAIN SCORE: Non-responsive. LOCATION: Bilateral chest FINDINGS: The cardiac silhouette is enlarged in transverse diameter. Support lines and tubes are in satisfactor y position. There is left lower lobe atelectasis versus pneumonia. There is subsegmental atelectasis in the right base. CONCLUSION: 1. Bilateral lower lobe atelectasis versus pneumonia. There has been no significant change when macey red to the prior exam. Cruz Barragan MD on March 26, 2016 at 6:32 Board Certified Radiologist. This report was verified electronically.
[2016-03-26 07:29] LABS: BANDS 2 % (0-6); METAMYELOCYTES 2 % (0-1); NEUTROPHIL # MANUAL DIFF 11.7 TH/MM3 (1.8-7.7); PLATELET ESTIMATE SMEAR LOW (NORMAL); PLATELET MORPHOLOGY NORMAL (NORMAL); POLYS (SEG NEUTROPHILS) 83 % (16-70); SCAN/DIFF FINAL DIFF MANUAL; WBC DIFF SAMPLE 100
[2016-03-26 07:30] LABS: ACANTHOCYTES OCC (NORMAL)
[2016-03-26] MEDS ORDERED: LACTATED RINGER'S 1000 ML INJ 1,000 ML IV ONE (08:00)
[2016-03-26] MEDS ORDERED: ALBUMIN HUMAN 5% 25 GM/500 ML BOTTLE IV ONE (08:00)
[2016-03-26] MEDS: FLUoxetine HCL 20 MG CAP PO SCH (08:05)
[2016-03-26] MEDS: SODIUM CHLORIDE 0.9% FLUSH 5 ML FLUSH IVF SCH (08:05)
[2016-03-26] MEDS: LACTOBACILLUS ACIDOPHILUS TAB PO SCH ×2 (08:05→20:16)
[2016-03-26] MEDS: CHLORHEXIDINE 0.12% (ORAL KIT) 15 ML CUP MT SCH ×2 (08:06→20:16)
[2016-03-26] MEDS: BRIMONIDINE TARTRATE 0.15% OPHT SOLN 5 ML BTL RIGHT EYE SCH ×2 (08:13→20:16)
[2016-03-26] MEDS: TIMOLOL MALEATE 0.5% OPHT SOLN 5 ML BTL RIGHT EYE SCH ×2 (08:13→20:16)
--- NOTE | 2016-03-26 09:39 | HHI.PR ---
Subjective Subjective Notes Intubated/Sedated Objective Vitals/I&O Vital Signs Date Time Temp Pulse Resp B/P Pulse Ox O2 Delivery O2 Flow Rate FiO2 03/26/16 08:00 99.2 119 18 83/51 98 03/26/16 08:00 40 03/26/16 07:00 Mechanical Ventilator 03/24/16 10:00 15.00 Labs Laboratory Tests Test 03/26/16 03/26/16 03:45 05:34 White Blood Count 13.5 Red Blood Count 3.40 Hemoglobin 10.3 Hematocrit 30.2 Mean Corpuscular Volume 88.8 Mean Corpuscular Hemoglobin 30.4 Mean Corpuscular Hemoglobin 34.2 Concent Red Cell Distribution Width 14.0 Platelet Count 144 Mean Platelet Volume 7.4 Neutrophils (%) (Auto) 82.8 Lymphocytes (%) (Auto) 4.6 Monocytes (%) (Auto) 11.8 Eosinophils (%) (Auto) 0.7 Basophils (%) (Auto) 0.1 Neutrophils # (Auto) 11.2 Lymphocytes # (Auto) 0.6 Monocytes # (Auto) 1.6 Eosinophils # (Auto) 0.1 Basophils # (Auto) 0.0 CBC Comment AUTO DIFF Differential Total Cells 100 Counted Neutrophils % (Manual) 83 Band Neutrophils % 2 Lymphocytes % 5 Monocytes % 8 Neutrophils # (Manual) 11.7 Metamyelocytes 2 Differential Comment FINAL DIFF MANUAL Platelet Estimate LOW Platelet Morphology Comment NORMAL Acanthocytes OCC Sodium Level 137 Potassium Level 3.3 Chloride Level 103 Carbon Dioxide Level 25.3 Anion Gap 9 Blood Urea Nitrogen 18 Creatinine 0.80 Estimat Glomerular Filtration 91 Rate Random Glucose 187 Calcium Level 7.3 Protein Corrected Calcium 8.7 Phosphorus Level 1.7 Magnesium Level 1.8 Total Bilirubin 0.7 Aspartate Amino Transf 25 (AST/SGOT) Alanine Aminotransferase 21 (ALT/SGPT) Alkaline Phosphatase 53 Total Protein 4.7 Albumin 1.9 Blood Gas Puncture Site RT RADIAL Blood Gas Patient Temperature 98.6 Blood Gas HCO3 23 Blood Gas Base Excess -1.0 Blood Gas Oxygen Saturation 97 Arterial Blood pH 7.44 Arterial Blood Partial 34 Pressure CO2 Arterial Blood Partial 132 Pressure O2 Arterial Blood Oxygen Content 17.6 Arterial Blood 1.3 Carboxyhemoglobin Arterial Blood Methemoglobin 1.0 Blood Gas Hemoglobin 12.8 Oxygen Delivery Device VENTILATOR Blood Gas Ventilator Setting AC 16/550/10PEEP Blood Gas Inspired Oxygen 40 Date/Time Procedure Status Source Growth 03/24/16 10:00 Gram Stain - Final Resulted Bronchial Washings Left Upper Lobe 03/24/16 10:00 Bronchial Culture - Preliminary Resulted S. Aureus Mrsa 03/24/16 10:00 Fungal Smear - Final Resulted Bronchial Washings Left Upper Lobe NO FUNGAL ELEMENTS SEEN. 03/24/16 10:00 Fungal Culture Resulted Bronchial Washings Left Upper Lobe Pending 03/24/16 10:00 Acid Fast Stain - Final Resulted Bronchial Washings Left Upper Lobe NO ACID FAST BACILLI SEEN 03/24/16 10:00 Mycobacterial Culture Resulted Bronchial Washings Left Upper Lobe Pending 03/24/16 10:00 Cancelled Bronchial Brushings Left Upper Lobe Cardiovascular: Regular Lungs: Clear Abdomen: Other (midline incision ---stapled--minimal drainage from inferior incision ) Extremities: Other (generlized edema ) A/P Assessment and Plan 89 year old male POD5 resection small bowel -CPAP trial yesterday; too weak for extubation; CCM planning CPAP again today -+ sputum cultures; on droplet precautions -UTI -Tolerating TF at 30 cc -Check cortisol level -Consult Cardiology for presumably new onset A-fib -Son at bedside -Discussed with CAROLINA Pires Attending Statement pt seen at bedside failed cpap, possible trach incision scant drainage distally tf at 30cc Attestation The exam, history, and the medical decision-making described in the above note were completed with the assistance of the mid-level provider. I reviewed and agree with the findings presented. I attest that I had a [id number] encounter with the patient on the same day, and personally performed and documented my assessment and findings in the medical record. Linda Mcleod Mar 26, 2016 09:39 Allan Ordoñez MD Mar 28, 2016 20:19
--- NOTE | 2016-03-26 10:09 | HHI.CCPN ---
Subjective Remarks/Hospital Course This is a 89-year-old male. Date of admission 03/18/2016. Date of consultation 03/21/2016. Past medical history includes bilateral cataracts, hypertension, disability, hypothyroidism, insomnia and history of gastric cancer status post partial gastrectomy and history of multiple inguinal hernia repairs. He presented to [facility] on 03/18 with acute onset abdominal pain. No bowel movements for several days. CT abdomen and pelvis revealed there is a small bowel position the right upper quadrant pelvis with a "twisting action likely incarceration. Hospital submitted patient general surgery was consulted. She had NG tube placed in cerebral abdominal exams and x-rays performed. Patient's abdominal pain persisted of nausea and vomiting. The patient eventually aborted with Dr. Cordon. Patient underwent exploratory laparoscopy/lyse adhesions with small bowel's resection secondary to ischemic jejunum loop an intestinal hernia. 2600 crystalloid. Minimal blood loss. 250 cc urine output. Patient has been on Levaquin/Flagyl since/5D UTI. This be continued. Patient is currently arousable on the ventilator. We are asked to watch the patient overnight with possible extubation in a.m. Objective Vital Signs Date Time Temp Pulse Resp B/P Pulse Ox O2 Delivery O2 Flow Rate FiO2 03/26/16 08:00 99.2 119 18 83/51 98 03/26/16 08:00 40 03/26/16 07:00 Mechanical Ventilator 03/24/16 10:00 15.00 Intake and Output 03/25/16 03/25/16 03/26/16 08:00 16:00 00:00 Intake Total 1411 ml 1747 ml 753 ml Output Total 350 ml 675 ml 225 ml Balance 1061 ml 1072 ml 528 ml Result Diagram: 03/26/16 0345 03/26/16 0345 Other Results Laboratory Tests Test 03/26/16 05:34 Blood Gas Puncture Site RT RADIAL Blood Gas Patient Temperature 98.6 Blood Gas HCO3 23 mmol/L (22-26) Blood Gas Base Excess -1.0 mmol/L (-2-2) Blood Gas Oxygen Saturation 97 % (90-100) Arterial Blood pH 7.44 (7.380-7.420) Arterial Blood Partial 34 mmHg (38-42) Pressure CO2 Arterial Blood Partial 132 mmHg Pressure O2 (61-120) Arterial Blood Oxygen Content 17.6 Vol % (12.0-20.0) Arterial Blood 1.3 % (0-4) Carboxyhemoglobin Arterial Blood Methemoglobin 1.0 % (0-2) Blood Gas Hemoglobin 12.8 G/DL (12.0-16.0) Oxygen Delivery Device VENTILATOR Blood Gas Ventilator Setting AC 16/550/10PEEP Blood Gas Inspired Oxygen 40 % Imaging Last Impressions Chest X-Ray 03/21/16 1527 Signed Impressions: Service Date/Time: Monday, March 21, 2016 15:21 - CONCLUSION: 1. No pneumothorax status post placement of right internal jugular central line which has its tip in the superior vena cava. 2. Persistent malposition of the tip of the left subclavian central line which is located in the neck in the expected region of the internal jugular vein. 3. No significant change in the bibasilar patchiness consistent with a atelectasis and/or mild infiltrates. Tyrese Zamudio MD Abdomen X-Ray 03/20/16 0600 Signed Impressions: Service Date/Time: Sunday, March 20, 2016 05:55 - CONCLUSION: Increasing gaseous distention of loops of small bowel in the left abdomen. Jian Kessler MD Abdomen/Pelvis CT 03/18/16 1511 Signed Impressions: Service Date/Time: March 16:24 - CONCLUSION: Small bowel obstruction. Berlin Metzger MD Objective Remarks GENERAL: 89-year-old male, critically ill currently orotracheally intubated SKIN: Warm and dry. No rash HEAD: Atraumatic. Normocephalic. EYES: Right pupil is 8 mm and fixed. Left pupil is pinpoint and minimally reactive. No scleral icterus. No injection or drainage. ENT: No nasal bleeding or discharge. Mucous membranes pink and moist. NECK: Trachea midline. No JVD. Right IJ CVL clean dry and intact. CARDIOVASCULAR: Regular rate and rhythm. S1, S2. No S4. Distant. No murmur appreciated RESPIRATORY: Clear to auscultation. Breath sounds equal bilaterally. GASTROINTESTINAL: Abdomen soft, non-tender, nondistended. Midline abpad place without drainage. Hypoactive bowel sounds appreciated MUSCULOSKELETAL: Extremities without significant peripheral edema. No obvious deformities. NEUROLOGICAL: Right pupil is fixed and dilated. Left pupil Reacts. Positive gag. Moves all 4 extremities to noxious stimuli.. No obvious cranial nerve deficits. Motor grossly within normal limits Date of Insertion: Mar 21, 2016 Line: Central Venous Catheter Side: Right Location: Internal, Jugular A/P Assessment and Plan Respiratory failure - re-intubated due to complete opacification of left hemothorax 03/24 - ACV 12/500/5/100 - Ventilator bundle - Bronchodilator therapy if needed every 2 hours - Bronchoscopy performed 03/24 - improvement on CXR , - failure to SBT 03/25 due to rapid shallow breathing - will attempt SBT again today Cataract and Macular degeneration - Continue Alphagan D 1 drop right eye twice a day. . - continue Timoptic xc 0.25% 1 drop right eye at night. Depression - Trazodone 50 at night resume when extubated Hypertension - hemodynamically stable - normotensive - monitor Dyslipidemia - atorvastatin 40 mg resume when p.o. ok by GS Ischemic jejunum in internal hernia - Postop day #5 exploratory laparotomy - lysis of adhesions - small bowel resection - Vital at goal of 30 - tolerating well BPH - Patient is on dutasteride 0.5 mg at night for . Diabetes mellitus - Sliding scale insulin - Holding metformin while in the ICU Hypothyroidism - Levoxyl 112 g daily Access - Right IJ CVL day 6 Prophylaxis - GI - Protonix - DVT - SCD/pharmacological prophylaxis when okay with general surgery Critical Care: The total critical care time was 35 minutes. Time to perform other separately billable procedures was not included in the critical care time. 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 Eric Mcintosh MD Mar 26, 2016 10:09
[2016-03-26] MEDS: VANCOMYCIN 1,500 MG/NS 500 ML IV SCH ×2 (10:55)
[2016-03-26] MEDS ORDERED: AMIODARONE INJ 150 MG in DEXTROSE 5% IN WATER 100ML INJ 97 ML IV ONE ×2 (15:30)
--- NOTE | 2016-03-26 16:02 | MB ---
cc: LARS MORGAN M.D. DATE OF CONSULTATION: 03/26/2016 REASON FOR CONSULTATION: Atrial fibrillation. HISTORY OF PRESENT ILLNESS: History is obtained from the electronic records. The patient is currently intubated and sedated. He is a 89 year-old white male with history of multiple medical problems including hypertension, gastric cancer, diabetes, hyperlipidemia, prostate cancer, who was admitted with small bowel obstruction. He subsequently underwent exploratory laparotomy, adhesiolysis, small bowel resection on 03/21/2016. Yesterday morning at about 9:00 a.m. he developed atrial fibrillation with controlled heart rate. The patient intermittently has been mildly hypotensive with systolic blood pressures in the 80's since his surgery. PAST MEDICAL HISTORY: 1. Hypertension. 2. Hypothyroidism. 3. Gastric cancer, status post partial gastrectomy 2002. 4. Diabetes mellitus. 5. Prostate cancer. 6. Hyperlipidemia. PAST SURGICAL HISTORY: 1. Inguinal hernia repair 1945, 1975. 2. Partial gastrectomy and vagotomy 1974. 3. Cholecystectomy in 1974. 4. Resection of perforated gastric ulcer which was subsequently found to be cancer 2002. 5. History of abdominal hernia repair with mesh 2003 with subsequent revision due to bowel reconstruction 2003. 6. Exploratory laparotomy, adhesiolysis, small bowel resection 03/21/2016. CURRENT CARDIAC MEDICATIONS: Isosorbide 30 mg p.o. daily. ALLERGIES NO KNOWN DRUG ALLERGIES. FAMILY HISTORY: Noncontributory. SOCIAL HISTORY: The patient apparently is a non-smoker with no history of alcohol abuse. REVIEW OF SYSTEMS Currently unobtainable. PHYSICAL EXAMINATION: VITAL SIGNS: Blood pressure 120/56, pulse 98, respirations 12. GENERAL: Well-developed, well-nourished white male currently intubated and sedated. HEAD, EYES, EARS, NOSE, AND THROAT: Jugular venous pressure is normal. Carotid pulses are 2+ bilaterally and without bruits. CHEST: Examination of the chest reveals clear lung falcon anteriorly CARDIAC: Irregular, irregular rhythm without definite S3 or murmur. ABDOMEN: On examination aggressive palpation was not pursued. No bowel sounds are evident. There is no definite hepatosplenomegaly. EXTREMITIES: Examination of the extremities reveals no clubbing or cyanosis. LABORATORY DATA: Includes; white blood count 13.5, hemoglobin 10.3, platelets 144, potassium 3.3, blood urea nitrogen 18, creatinine 0.80. RADIOLOGIC: Chest x-ray shows bilateral lower lobe atelectasis versus pneumonia. Electrocardiogram from 03/25/2016 at 10:54 p.m. shows atrial fibrillation, right bundle-branch block, leftward axis. IMPRESSION: Paroxysmal atrial fibrillation with controlled heart rates in this 89 year-old white male with history of hypertension, diabetes, hyperlipidemia, gastric cancer, prostate cancer, now admitted with small bowel obstruction treated with adhesiolysis and small bowel resection approximately five days ago. At this time he remains in atrial fibrillation which has been ongoing for approximately the past 30 hours. There has been no definite heart rate control issues. Overall there is no definitive evidence for acute coronary syndrome. With respect to his thromboembolic risk, it is at least moderately elevated with his advanced age, history of hypertension and diabetes. RECOMMENDATIONS: 1. We will try to start IV amiodarone this evening in an attempt to restore sinus rhythm; at this point he is not a candidate to anticoagulation therapy given his recent surgery. 2. Check a 2-dimensional echocardiogram to assess his left ventricular function. MD HOMAR Fofana/sima /3:21 PM /3:31 PM GAY
--- NOTE | 2016-03-26 16:51 | EKG ---
Date Performed: 03/25/2016 Time Performed: 22:54:30 PTAGE: 89 years EKG: Atrial fibrillation Leftward axis Right bundle branch block Generalized low QRS voltages Wh en compared to previous tracing, patient has developed atrial Fibrillation with a controlled ventricu lar response. He was previously noted to be in Sinus rhythm . Clinical corralation advised. Abnormal ECG PREVIOUS TRACING : 03/22/2016 12.05.54 DOCTOR: Aaliyah Ridley Interpretating Date/Time 03/26/2016 16:50:33
[2016-03-26] MEDS: AMIODARONE INJ 450 MG in DEXTROSE 5% IN WATE(EXCEL) INJ 241 ML IV SCH ×2 (16:58)
[2016-03-26] MEDS: DEXT 5%-NACL 0.45% 1000 ML INJ 1,000 ML IV SCH (16:58)
[2016-03-26 18:57] LABS: POTASSIUM 3.8 MEQ/L (3.5-5.1)
[2016-03-26] MEDS: FINASTERIDE 5 MG TAB PO SCH (20:15)
[2016-03-26] MEDS: LEVOFLOXACIN 500 MG PREMIX INJ 100 ML IV SCH (23:30)
[2016-03-27] VITALS (19 sets, daily range): BP systolic 87–133; BP diastolic 54–76; PULSE 73–86; RESP 14–17; TEMP 97.4–99.2; O2SAT 94–100
[2016-03-27] MEDS: RESP: ACETYLCYSTEINE 20% 30 ML NEB NEB SCH ×7 (00:01→23:44)
[2016-03-27] MEDS: RESP: ALBUTEROL 2.5 MG/IPRATROPIUM 0.5 MG NEB (SCH) NEB ×7 (00:01→23:58)
[2016-03-27] MEDS: AMIODARONE INJ 450 MG in DEXTROSE 5% IN WATE(EXCEL) INJ 241 ML IV SCH ×4 (01:12→16:43)
[2016-03-27 04:12] LABS: AUTOMATED NEUTROPHIL # 11.4 TH/MM3 (1.8-7.7); BASOPHIL % 0.1 % (0.0-2.0); EOSINOPHIL # 0.2 TH/MM3 (0-0.4); EOSINOPHIL % 1.2 % (0.0-4.0); HEMATOCRIT 28.3 % (39.0-51.0); LYMPH % 7.4 % (9.0-44.0); MEAN CORPUSCULAR HEMOGLOBIN 29.8 PG (27.0-34.0); MEAN CORPUSCULAR HGB CONC 33.9 % (32.0-36.0); MONO % 8.4 % (0.0-8.0); NEUT % 82.9 % (16.0-70.0); PLATELET COUNT 177 TH/MM3 (150-450); RED BLOOD COUNT 3.22 MIL/MM3 (4.50-5.90); RED CELL DISTRIBUTION WIDTH 13.6 % (11.6-17.2); WHITE BLOOD COUNT 13.8 TH/MM3 (4.0-11.0)
[2016-03-27 04:19] LABS: HEMO FLAGS AUTO DIFF
[2016-03-27 04:40] LABS: BICARBONATE 23.8 MEQ/L (21.0-32.0); CALCIUM-PROTEIN CORRECTED 9.1 MG/DL (8.5-10.1); MAGNESIUM 1.6 MG/DL (1.5-2.5); POTASSIUM 3.2 MEQ/L (3.5-5.1); TOTAL BILIRUBIN ADULT 0.7 MG/DL (0.2-1.0)
[2016-03-27] MEDS: metroNIDAZOLE 500 MG INJ 100 ML IV SCH ×3 (04:51→20:55)
[2016-03-27] MEDS: ISOSORBIDE MONONITRATE 20 MG TAB PO SCH (04:55)
[2016-03-27] MEDS ORDERED: POTASSIUM PHOSPHATE IV ONE ×2 (05:15)
[2016-03-27] MEDS ORDERED: POTASSIUM CHLOR 40 MEQ PREMIX 100 ML IV ONE (05:15)
[2016-03-27] MEDS ORDERED: NS IV ONE ×2 (05:15)
[2016-03-27 05:41] LABS: BLOOD GAS BASE EXCESS -1.2 mmol/L (-2-2); BLOOD GAS CARBOXYHEMOGLOBIN 1.2 % (0-4); BLOOD GAS HCO3 21 mmol/L (22-26); BLOOD GAS O2 HGB SATURATION 97 % (90-100); BLOOD GAS OXYGEN CONTENT 15.6 Vol % (12.0-20.0); BLOOD GAS PCO2 23 mmHg (38-42); BLOOD GAS PO2 105 mmHg (61-120); BLOOD GAS TOTAL HGB 11.4 G/DL (12.0-16.0); CRITICAL VALUE YES; OXYGEN DEVICE VENTILATOR; TEMP CORR TO 98.6
[2016-03-27 05:42] LABS: DRAW SITE RT RADIAL; FIO2 40 %; NUMBER OF ARTERIAL PUNCTURES 1; STAT NO; ULNAR PULSE PRESENT; VENT SETTINGS A/C 16/550/PEEP10
[2016-03-27] MEDS: LEVOTHYROXINE SODIUM 112 MCG TAB PO SCH (05:49)
[2016-03-27 06:06] LABS: BANDS 1 % (0-6); METAMYELOCYTES 4 % (0-1); NEUTROPHIL # MANUAL DIFF 13.2 TH/MM3 (1.8-7.7); POLYS (SEG NEUTROPHILS) 91 % (16-70); WBC DIFF SAMPLE 100
[2016-03-27 06:07] LABS: KERATOCYTES OCC (NORMAL); OVALOCYTES 1+ (NORMAL); PLATELET ESTIMATE SMEAR NORMAL (NORMAL); PLATELET MORPHOLOGY NORMAL (NORMAL); SCAN/DIFF FINAL DIFF MANUAL
[2016-03-27] MEDS: INSULIN ASPART SUPPLEMENTAL SCALE SQ SCH ×4 (06:24→20:57)
--- NOTE | 2016-03-27 06:33 | RADRPT ---
EXAM DATE/TIME: 03/27/2016 05:11 [place] COMPARISON: CHEST SINGLE AP, March 26, 2016, 5:26. INDICATIONS : Please evaluate after respiratory failure. MEDICAL HISTORY : Carcinoma, gastric. SURGICAL HISTORY : None. ENCOUNTER: Subsequent ACUITY: 2 weeks PAIN SCORE: Non-responsive. LOCATION: Bilateral chest FINDINGS: Support lines and tubes are in satisfactory position. There is left lower lobe atelectasis versus pne umonia. Small bilateral pleural effusions are identified. There has been no significant change when c ompared to the prior exam. CONCLUSION: 1. Left lower lobe atelectasis versus pneumonia. There has been no significant change when compared t o the prior exam. 2. Small bilateral effusions rCuz Barragan MD on March 27, 2016 at 6:31 Board Certified Radiologist. This report was verified electronically.
[2016-03-27] MEDS: CHLORHEXIDINE 0.12% (ORAL KIT) 15 ML CUP MT SCH ×2 (08:00→20:55)
--- NOTE | 2016-03-27 08:43 | HHI.CCPN ---
Subjective Remarks/Hospital Course This is a 89-year-old male. Date of admission 03/18/2016. Date of consultation 03/21/2016. Past medical history includes bilateral cataracts, hypertension, disability, hypothyroidism, insomnia and history of gastric cancer status post partial gastrectomy and history of multiple inguinal hernia repairs. He presented to [facility] [address] on 03/18 with acute onset abdominal pain. No bowel movements for several days. CT abdomen and pelvis revealed there is a small bowel position the right upper quadrant pelvis with a "twisting action likely incarceration. Hospital submitted patient general surgery was consulted. She had NG tube placed in cerebral abdominal exams and x-rays performed. Patient's abdominal pain persisted of nausea and vomiting. The patient eventually aborted with Dr. Cordon. Patient underwent exploratory laparoscopy/lyse adhesions with small bowel's resection secondary to ischemic jejunum loop an intestinal hernia. 2600 crystalloid. Minimal blood loss. 250 cc urine output. Patient has been on Levaquin/Flagyl since/5D UTI. This be continued. Patient is currently arousable on the ventilator. We are asked to watch the patient overnight with possible extubation in a.m. Objective Vital Signs Date Time Temp Pulse Resp B/P Pulse Ox O2 Delivery O2 Flow Rate FiO2 03/27/16 06:00 86 03/27/16 04:00 40 03/27/16 04:00 100 03/27/16 04:00 98.7 17 97/54 03/26/16 07:00 Mechanical Ventilator 03/24/16 10:00 15.00 Intake and Output 03/26/16 03/26/16 03/27/16 08:00 16:00 00:00 Intake Total 740 ml 2970 ml 1514 ml Output Total 225 ml 525 ml 425 ml Balance 515 ml 2445 ml 1089 ml Result Diagram: 03/27/16 0345 03/27/16 0345 Other Results Microbiology Date/Time Procedure Status Source Growth 03/24/16 10:00 Gram Stain - Final Complete Bronchial Washings Left Upper Lobe 03/24/16 10:00 Bronchial Culture - Final Complete S. Aureus Mrsa Laboratory Tests Test 03/27/16 05:30 Blood Gas Puncture Site RT RADIAL Blood Gas Patient Temperature 98.6 Blood Gas HCO3 21 mmol/L (22-26) Blood Gas Base Excess -1.2 mmol/L (-2-2) Blood Gas Oxygen Saturation 97 % (90-100) Arterial Blood pH 7.56 (7.380-7.420) Arterial Blood Partial 23 mmHg (38-42) Pressure CO2 Arterial Blood Partial 105 mmHg Pressure O2 (61-120) Arterial Blood Oxygen Content 15.6 Vol % (12.0-20.0) Arterial Blood 1.2 % (0-4) Carboxyhemoglobin Arterial Blood Methemoglobin 1.0 % (0-2) Blood Gas Hemoglobin 11.4 G/DL (12.0-16.0) Oxygen Delivery Device VENTILATOR Blood Gas Ventilator Setting A/C 16/550/PEEP10 Blood Gas Inspired Oxygen 40 % Imaging Last Impressions Chest X-Ray 03/21/16 1527 Signed Impressions: Service Date/Time: Monday, March 21, 2016 15:21 - CONCLUSION: 1. No pneumothorax status post placement of right internal jugular central line which has its tip in the superior vena cava. 2. Persistent malposition of the tip of the left subclavian central line which is located in the neck in the expected region of the internal jugular vein. 3. No significant change in the bibasilar patchiness consistent with a atelectasis and/or mild infiltrates. Tyrese Zamudio MD Abdomen X-Ray 03/20/16 0600 Signed Impressions: Service Date/Time: Sunday, March 20, 2016 05:55 - CONCLUSION: Increasing gaseous distention of loops of small bowel in the left abdomen. Jian Kessler MD Abdomen/Pelvis CT 03/18/16 1511 Signed Impressions: Service Date/Time: March 16:24 - CONCLUSION: Small bowel obstruction. Berlin Metzger MD Objective Remarks GENERAL: 89-year-old male, critically ill currently orotracheally intubated SKIN: Warm and dry. No rash HEAD: Atraumatic. Normocephalic. EYES: Right pupil is 8 mm and fixed. Left pupil is pinpoint and minimally reactive. No scleral icterus. No injection or drainage. ENT: No nasal bleeding or discharge. Mucous membranes pink and moist. NECK: Trachea midline. No JVD. Right IJ CVL clean dry and intact. CARDIOVASCULAR: Regular rate and rhythm. S1, S2. No S4. Distant. No murmur appreciated RESPIRATORY: Clear to auscultation. Breath sounds equal bilaterally. GASTROINTESTINAL: Abdomen soft, non-tender, nondistended. Midline abpad place without drainage. Hypoactive bowel sounds appreciated MUSCULOSKELETAL: Extremities without significant peripheral edema. No obvious deformities. NEUROLOGICAL: Right pupil is fixed and dilated. Left pupil Reacts. Positive gag. Moves all 4 extremities to noxious stimuli.. No obvious cranial nerve deficits. Motor grossly within normal limits Date of Insertion: Mar 21, 2016 Line: Central Venous Catheter Side: Right Location: Internal, Jugular A/P Assessment and Plan Respiratory failure - re-intubated due to complete opacification of left hemothorax 03/24 - ACV 12/500/5/100 - Ventilator bundle - Bronchodilator therapy if needed every 2 hours - Bronchoscopy performed 03/24 - improvement on CXR , no interval of change today - failure to SBT 03/25 due to rapid shallow breathing - will attempt SBT again today Cataract and Macular degeneration - Currently Alphagan D 1 drop right eye twice a day. . - continue Timoptic xc 0.25% 1 drop right eye at night. Depression - Trazodone 50 at night resume when extubated Hypertension - hemodynamically stable - normotensive - monitor Atrial fibrilation - Amiodaron per cardiology Dyslipidemia - atorvastatin 40 mg resume when p.o. ok by GS Ischemic jejunum in internal hernia - Postop day #6 exploratory laparotomy - lysis of adhesions - small bowel resection - Vital at goal of 30 - tolerating well BPH - Patient is on dutasteride 0.5 mg at night for . Diabetes mellitus - Sliding scale insulin - Holding metformin while in the ICU Hypothyroidism - Levoxyl 112 g daily Access - Right IJ CVL day 6 Prophylaxis - GI - Protonix - DVT - SCD/pharmacological prophylaxis when okay with general surgery Level 3 Eric Mcintosh MD Mar 27, 2016 08:43
[2016-03-27] MEDS ORDERED: MAGNESIUM SULFATE INJ 2 GM in SODIUM CHLORIDE 0.9% INJ 96 ML IV PRN (08:45)
[2016-03-27] MEDS ORDERED: POTASSIUM CL 40 MEQ/30 ML LIQ UDC PO/TUBE PRN ×2 (08:45)
[2016-03-27] MEDS ORDERED: MAGNESIUM SULFATE INJ 4 GM in SODIUM CHLORIDE 0.9% INJ 92 ML IV PRN (08:45)
[2016-03-27] MEDS ORDERED: POTASSIUM PHOSPHATE MONOBASIC 500 MG TAB PO/TUBE PRN (08:45)
[2016-03-27] MEDS ORDERED: MAGNESIUM OXIDE 400 MG TAB PO PRN (08:45)
[2016-03-27] MEDS ORDERED: POTASSIUM CHLOR 40 MEQ PREMIX 100 ML IV PRN ×2 (08:45)
[2016-03-27] MEDS ORDERED: SODIUM PHOSPHATE INJ 30 MMOL in SODIUM CHLOR 0.9% 250 ML INJ 240 ML IV PRN (08:45)
[2016-03-27] MEDS ORDERED: POTASSIUM CHLOR 20 MEQ PREMIX 100 ML IV PRN (08:45)
[2016-03-27] MEDS ORDERED: POTASSIUM PHOSPHATE INJ 30 MMOL in SODIUM CHLOR 0.9% 250 ML INJ 250 ML IV PRN (08:45)
[2016-03-27] MEDS ORDERED: POTASSIUM PHOSPHATE MONOBASIC 500 MG TAB PO PRN (08:45)
[2016-03-27] MEDS: SODIUM CHLORIDE 0.9% FLUSH 5 ML FLUSH IVF SCH (08:55)
[2016-03-27] MEDS: FLUoxetine HCL 20 MG CAP PO SCH (08:57)
[2016-03-27] MEDS: TIMOLOL MALEATE 0.5% OPHT SOLN 5 ML BTL RIGHT EYE SCH ×2 (08:57→20:57)
[2016-03-27] MEDS: LACTOBACILLUS ACIDOPHILUS TAB PO SCH ×2 (08:57→20:55)
[2016-03-27] MEDS: BRIMONIDINE TARTRATE 0.15% OPHT SOLN 5 ML BTL RIGHT EYE SCH ×2 (08:57→20:56)
[2016-03-27] MEDS: PHARMACY ORDERED LAB XX ONE ×2 (09:15→10:35)
[2016-03-27] MEDS: VANCOMYCIN 1,500 MG/NS 500 ML IV SCH ×2 (10:45)
--- NOTE | 2016-03-27 10:56 | PD.CARD.PN ---
Subjective Subjective Remarks Awake. Seems to deny pain, dyspnea. Objective Medications Item Value Date Time Amiodarone HCl 250 ml @ 0 mls/hr 03/26/16 1530 450 mg/Dextrose CONTINUOUS/IV 03/27/16 0112 Isosorbide 30 mg 03/19/16 0700 Mononitrate DAILY@07/PO (Ismo) Vital Signs / I&O Vital Signs Date Time Temp Pulse Resp B/P Pulse Ox O2 Delivery O2 Flow Rate FiO2 03/27/16 08:30 100 40 03/27/16 06:00 86 03/27/16 04:00 84 03/27/16 04:00 40 03/27/16 04:00 100 40 03/27/16 04:00 98.7 84 17 97/54 100 03/27/16 02:00 85 03/27/16 01:25 100 40 03/27/16 00:00 40 03/27/16 00:00 83 03/27/16 00:00 97.4 83 16 133/66 100 03/26/16 22:32 100 40 03/26/16 22:00 87 03/26/16 20:26 100 40 03/26/16 20:00 88 03/26/16 20:00 97.1 88 16 107/59 100 03/26/16 20:00 40 03/26/16 16:50 99 40 03/26/16 16:31 100 40 03/26/16 16:00 99.2 98 21 132/69 99 03/26/16 16:00 40 03/26/16 12:22 100 40 03/26/16 12:00 98.9 98 12 120/56 100 03/26/16 12:00 40 I/O 03/26/16 03/26/16 03/26/16 03/27/16 03/27/16 03/27/16 07:00 15:00 23:00 07:00 15:00 23:00 Intake Total 740 ml 2970 ml 1514 ml 908 ml Output Total 225 ml 525 ml 425 ml 350 ml Balance 515 ml 2445 ml 1089 ml 558 ml IV Total 472 ml 2235 ml 1171 ml 601 ml Tube Feeding 208 ml 195 ml 223 ml 187 ml Albumin 500 ml Tube Irrigant 120 ml 120 ml Other 60 ml 40 ml Output Urine Total 225 ml 325 ml 425 ml 350 ml Stool Total 200 ml # Bowel Movements 3 1 1 Physical Exam GENERAL: Well developed, well nourished. No acute distress. Intubated. HEENT: Jugular venous pressure is normal. CHEST: Lungs clear to auscultation anteriorly. CARDIAC: Irregular rate and rhythm without S3, S4, or murmur. ABDOMEN: Soft. Bowel sounds absent. EXTREMITIES: No clubbing, cyanosis, or edema. Laboratory Laboratory Tests Test 03/26/16 03/26/16 03/27/16 03/27/16 10:55 18:15 03:45 05:30 Random Cortisol 23.8 MCG/DL Potassium Level 3.8 MEQ/L 3.2 MEQ/L Phosphorus Level 1.9 MG/DL 0.8 MG/DL White Blood Count 13.8 TH/MM3 Red Blood Count 3.22 MIL/MM3 Hemoglobin 9.6 GM/DL Hematocrit 28.3 % Mean Corpuscular Volume 88.0 FL Mean Corpuscular Hemoglobin 29.8 PG Mean Corpuscular Hemoglobin 33.9 % Concent Red Cell Distribution Width 13.6 % Platelet Count 177 TH/MM3 Mean Platelet Volume 7.4 FL Neutrophils (%) (Auto) 82.9 % Lymphocytes (%) (Auto) 7.4 % Monocytes (%) (Auto) 8.4 % Eosinophils (%) (Auto) 1.2 % Basophils (%) (Auto) 0.1 % Neutrophils # (Auto) 11.4 TH/MM3 Lymphocytes # (Auto) 1.0 TH/MM3 Monocytes # (Auto) 1.2 TH/MM3 Eosinophils # (Auto) 0.2 TH/MM3 Basophils # (Auto) 0.0 TH/MM3 CBC Comment AUTO DIFF Differential Total Cells 100 Counted Neutrophils % (Manual) 91 % Band Neutrophils % 1 % Lymphocytes % 2 % Monocytes % 2 % Neutrophils # (Manual) 13.2 TH/MM3 Metamyelocytes 4 % Differential Comment FINAL DIFF MANUAL Platelet Estimate NORMAL Platelet Morphology Comment NORMAL Ovalocytes 1+ Keratocytes OCC Sodium Level 137 MEQ/L Chloride Level 105 MEQ/L Carbon Dioxide Level 23.8 MEQ/L Anion Gap 8 MEQ/L Blood Urea Nitrogen 18 MG/DL Creatinine 0.71 MG/DL Estimat Glomerular Filtration 104 ML/MIN Rate Random Glucose 215 MG/DL Calcium Level 7.4 MG/DL Protein Corrected Calcium 9.1 MG/DL Magnesium Level 1.6 MG/DL Total Bilirubin 0.7 MG/DL Aspartate Amino Transf 18 U/L (AST/SGOT) Alanine Aminotransferase 21 U/L (ALT/SGPT) Alkaline Phosphatase 49 U/L Total Protein 4.2 GM/DL Albumin 1.8 GM/DL Blood Gas Puncture Site RT RADIAL Blood Gas Patient Temperature 98.6 Blood Gas HCO3 21 mmol/L Blood Gas Base Excess -1.2 mmol/L Blood Gas Oxygen Saturation 97 % Arterial Blood pH 7.56 Arterial Blood Partial 23 mmHg Pressure CO2 Arterial Blood Partial 105 mmHg Pressure O2 Arterial Blood Oxygen Content 15.6 Vol % Arterial Blood 1.2 % Carboxyhemoglobin Arterial Blood Methemoglobin 1.0 % Blood Gas Hemoglobin 11.4 G/DL Oxygen Delivery Device VENTILATOR Blood Gas Ventilator Setting A/C 16/550/PEEP10 Blood Gas Inspired Oxygen 40 % Assessment and Plan Problem List: (1) Paroxysmal atrial fibrillation Assessment and Plan: Remains in atrial fibrillation, controlled HR's. Patient' s thromboembolic risk high. Echo pending. REC continue IV Amiodarone when OK from surgery standpoint, rec aspirin suppository Code Status full code Mao Juarez MD Mar 27, 2016 10:56
--- NOTE | 2016-03-27 15:54 | EKG ---
Date Performed: 03/27/2016 Time Performed: 07:29:19 PTAGE: 89 years EKG: ATRIAL FLUTTER/TACHYCARDIA WITH ABERRANT CONDUCTION OR VENTRICULAR PREMATURE COMPLEXES ZAIRA ED LEFT AXIS DEVIATION Right bundle branch block Largely unchanged from prior tracing ABNORMAL ECG PREVIOUS TRACING : 03/25/2016 22.54 DOCTOR: Santy Sanchez Interpretating Date/Time 03/27/2016 15:53:30
[2016-03-27] MEDS: DEXT 5%-NACL 0.45% 1000 ML INJ 1,000 ML IV SCH (16:34)
--- NOTE | 2016-03-27 17:42 | EC ---
Study Study Date:03/27/2016 STUDY CONCLUSIONS SUMMARY - Procedure narrative: Transthoracic echocardiography. Image quality was suboptimal. The study was technically limited. Scanning was performed from the parasternal, apical, and subcostal acoustic windows. - Left ventricle: The cavity size was normal. Wall thickness was normal. Systolic function was mildly reduced. The estimated ejection fraction was in the range of 45% to 50%. Diffuse hypokinesis. - Aortic valve: Valve area: 2.83cm^2 (Vmax). - Pericardium, extracardiac: There was a left pleural effusion. If LV function is below 40, please consider prescribing an ACEI or ARB or document rationale for non-use. PROCEDURE DATA STUDY STATUS: Elective. Procedure: Transthoracic echocardiography. Image quality was suboptimal. The study was technically limited. Scanning was performed from the parasternal, apical, and subcostal acoustic windows. Study completion: The patient tolerated the procedure well. Transthoracic echocardiography. M-mode, complete 2D, complete spectral Doppler, and color Doppler. Patient status: Inpatient. CARDIAC ANATOMY LEFT VENTRICLE: The cavity size was normal. Wall thickness was normal. Systolic function was mildly reduced. The estimated ejection fraction was in the range of 45% to 50%. Diffuse hypokinesis. Images were inadequate for LV wall motion assessment. AORTIC VALVE: Poorly visualized. Trileaflet; normal thickness leaflets. Doppler: Transvalvular velocity was within the normal range. There was no stenosis. No regurgitation. Valve area: 2.83cm^2 (Vmax). AORTA: Aortic root: The aortic root was normal in size. MITRAL VALVE: Poorly visualized. Structurally normal valve. Doppler: Transvalvular velocity was within the normal range. There was no evidence for stenosis. Trace regurgitation. LEFT ATRIUM: Poorly visualized. The atrium was normal in size. RIGHT VENTRICLE: Poorly visualized. The cavity size was normal. Wall thickness was normal. PULMONIC VALVE: Poorly visualized. Doppler: Transvalvular velocity was within the normal range. There was no evidence for stenosis. No regurgitation. TRICUSPID VALVE: Structurally normal valve. Doppler: Transvalvular velocity was within the normal range. Trace regurgitation. PULMONARY ARTERY: The main pulmonary artery was normal-sized. Systolic pressure was within the normal range. RIGHT ATRIUM: The atrium was normal in size. The Eustachian valve appeared prominant. PERICARDIUM: There was no pericardial effusion. SYSTEMIC VEINS: Inferior vena cava: The vessel was normal in size. Pleura: There was a left pleural effusion. BASIC MEASUREMENTS ADULT Normal Left ventricle LV internal dimension, ED, chordal level, 47.4 mm 43-52 PLAX LV internal dimension, ES, chordal level, *38.9 mm 23-38 PLAX Fractional shortening, chordal level, PLAX *18 % >29 LV posterior wall thickness, ED 8.89 mm IVS/LVPW ratio, ED 1.15 <1.3 Ventricular septum Septal thickness, ED 10.2 mm Aortic valve Leaflet separation 23 mm 15-26 BASIC MEASUREMENTS ADULT Normal Aortic valve Leaflet separation 23 mm 15-26 Aorta Root diameter, ED 21 mm 20-37 Left atrium Anterior-posterior dimension, ES 37 mm 19-40 LA/aortic root ratio 1.76 DOPPLER MEASUREMENTS ADULT Normal Main pulmonary artery Pressure, S 22 mm Hg =30 Pressure, ED 21 mm Hg Aortic valve Peak velocity, S 97.7 cm/s Valve area, Vmax 2.83 cm^2 Regurgitant velocity, ED 187 cm/s Regurgitant deceleration 696 cm/s^2 Regurgitant pressure half-time 788 ms Regurgitant gradient, ED 14 mm Hg Mitral valve Maximal regurgitant velocity 209 cm/s Tricuspid valve Regurgitant peak velocity 201 cm/s Peak RV-RA gradient, S 16 mm Hg Maximal regurgitant velocity 201 cm/s Systemic veins Estimated CVP 10 mm Hg Right ventricle RV pressure, S 26 mm Hg <30 Pulmonic valve Peak velocity, S 104 cm/s Regurgitant velocity, ED 168 cm/s LEGEND: Mean values are shown as u=mean value. Asterisk (*) head values outside specified normal range. Prepared and signed by Mariano Koenig [id number]
--- NOTE | 2016-03-27 18:37 | HHI.PR ---
Subjective Subjective Notes more awake today, off pressors, tolerating tf Objective Vitals/I&O Vital Signs Date Time Temp Pulse Resp B/P Pulse Ox O2 Delivery O2 Flow Rate FiO2 03/27/16 18:05 99 40 03/27/16 18:00 81 03/27/16 16:00 98.0 16 116/56 03/26/16 07:00 Mechanical Ventilator 03/24/16 10:00 15.00 Labs Laboratory Tests Test 03/27/16 03/27/16 03/27/16 03/27/16 03:45 05:30 09:15 10:35 White Blood Count 13.8 Red Blood Count 3.22 Hemoglobin 9.6 Hematocrit 28.3 Mean Corpuscular Volume 88.0 Mean Corpuscular Hemoglobin 29.8 Mean Corpuscular Hemoglobin 33.9 Concent Red Cell Distribution Width 13.6 Platelet Count 177 Mean Platelet Volume 7.4 Neutrophils (%) (Auto) 82.9 Lymphocytes (%) (Auto) 7.4 Monocytes (%) (Auto) 8.4 Eosinophils (%) (Auto) 1.2 Basophils (%) (Auto) 0.1 Neutrophils # (Auto) 11.4 Lymphocytes # (Auto) 1.0 Monocytes # (Auto) 1.2 Eosinophils # (Auto) 0.2 Basophils # (Auto) 0.0 CBC Comment AUTO DIFF Differential Total Cells 100 Counted Neutrophils % (Manual) 91 Band Neutrophils % 1 Lymphocytes % 2 Monocytes % 2 Neutrophils # (Manual) 13.2 Metamyelocytes 4 Differential Comment FINAL DIFF MANUAL Platelet Estimate NORMAL Platelet Morphology Comment NORMAL Ovalocytes 1+ Keratocytes OCC Sodium Level 137 Potassium Level 3.2 Chloride Level 105 Carbon Dioxide Level 23.8 Anion Gap 8 Blood Urea Nitrogen 18 Creatinine 0.71 Estimat Glomerular Filtration 104 Rate Random Glucose 215 Calcium Level 7.4 Protein Corrected Calcium 9.1 Phosphorus Level 0.8 2.7 Magnesium Level 1.6 Total Bilirubin 0.7 Aspartate Amino Transf 18 (AST/SGOT) Alanine Aminotransferase 21 (ALT/SGPT) Alkaline Phosphatase 49 Total Protein 4.2 Albumin 1.8 Blood Gas Puncture Site RT RADIAL Blood Gas Patient Temperature 98.6 Blood Gas HCO3 21 Blood Gas Base Excess -1.2 Blood Gas Oxygen Saturation 97 Arterial Blood pH 7.56 Arterial Blood Partial 23 Pressure CO2 Arterial Blood Partial 105 Pressure O2 Arterial Blood Oxygen Content 15.6 Arterial Blood 1.2 Carboxyhemoglobin Arterial Blood Methemoglobin 1.0 Blood Gas Hemoglobin 11.4 Oxygen Delivery Device VENTILATOR Blood Gas Ventilator Setting A/C 16/550/PEEP10 Blood Gas Inspired Oxygen 40 Vancomycin Level Trough 7.9 Date/Time Procedure Status Source Growth 03/24/16 10:00 Gram Stain - Final Complete Bronchial Washings Left Upper Lobe 03/24/16 10:00 Bronchial Culture - Final Complete S. Aureus Mrsa 03/24/16 10:00 Fungal Smear - Final Resulted Bronchial Washings Left Upper Lobe NO FUNGAL ELEMENTS SEEN. 03/24/16 10:00 Fungal Culture Resulted Bronchial Washings Left Upper Lobe Pending 03/24/16 10:00 Acid Fast Stain - Final Resulted Bronchial Washings Left Upper Lobe NO ACID FAST BACILLI SEEN 03/24/16 10:00 Mycobacterial Culture Resulted Bronchial Washings Left Upper Lobe Pending 03/24/16 10:00 Cancelled Bronchial Brushings Left Upper Lobe Cardiovascular: Other (s1 s2) Lungs: Rhonchi Abdomen: Other (soft drainage to distal aspect) A/P Assessment and Plan 89 year old male POD6 resection small bowel -CPAP trials, low vent setting possible extubation soon -+ sputum cultures; on droplet precautions -UTI -Tolerating TF at 30 cc -Consult Cardiology for presumably new onset A-fib -Son at bedside dressing to distal incision Allan Ordoñez MD Mar 27, 2016 18:37
[2016-03-27] MEDS: FINASTERIDE 5 MG TAB PO SCH (20:55)
[2016-03-27 21:04] LABS: POTASSIUM 3.8 MEQ/L (3.5-5.1)
[2016-03-27] MEDS: LEVOFLOXACIN 500 MG PREMIX INJ 100 ML IV SCH (23:02)
[2016-03-28] VITALS (21 sets, daily range): BP systolic 98–146; BP diastolic 54–67; PULSE 57–89; RESP 16–28; TEMP 96.8–99.3; O2SAT 96–100
[2016-03-28] MEDS: AMIODARONE INJ 450 MG in DEXTROSE 5% IN WATE(EXCEL) INJ 241 ML IV SCH ×4 (03:43→17:26)
[2016-03-28] MEDS: RESP: ACETYLCYSTEINE 20% 30 ML NEB NEB SCH ×2 (04:00→08:10)
[2016-03-28] MEDS: VANCOMYCIN 1,500 MG/NS 500 ML IV SCH ×2 (04:27)
[2016-03-28] MEDS: RESP: ALBUTEROL 2.5 MG/IPRATROPIUM 0.5 MG NEB (SCH) NEB ×2 (04:44→08:10)
--- NOTE | 2016-03-28 04:54 | RADRPT ---
EXAM DATE/TIME: 03/28/2016 03:40 [facility] COMPARISON: CHEST SINGLE AP, March 27, 2016, 5:11. INDICATIONS : Shortness of breath. MEDICAL HISTORY : Carcinoma, gastric. SURGICAL HISTORY : None. ENCOUNTER: Subsequent ACUITY: 2 weeks PAIN SCORE: Non-responsive. LOCATION: Bilateral chest FINDINGS: The cardiac silhouette is enlarged in transverse diameter. Support lines and tubes are in satisfactor y position. There is bilateral lower lobe atelectasis versus pneumonia left greater than right. Smal l bilateral pleural effusions are identified. CONCLUSION: 1. Bilateral lower lobe atelectasis versus pneumonia. The findings have worsened when compared with t he prior examination. Cruz Barragan MD on March 28, 2016 at 4:52 Board Certified Radiologist. This report was verified electronically.
[2016-03-28] MEDS: ISOSORBIDE MONONITRATE 20 MG TAB PO SCH (04:57)
[2016-03-28] MEDS: LEVOTHYROXINE SODIUM 112 MCG TAB PO SCH (05:02)
[2016-03-28] MEDS: metroNIDAZOLE 500 MG INJ 100 ML IV SCH ×3 (05:02→23:04)
[2016-03-28 06:13] LABS: BLOOD GAS BASE EXCESS -1.6 mmol/L (-2-2); BLOOD GAS CARBOXYHEMOGLOBIN 1.4 % (0-4); BLOOD GAS HCO3 20 mmol/L (22-26); BLOOD GAS O2 HGB SATURATION 96 % (90-100); BLOOD GAS OXYGEN CONTENT 12.7 Vol % (12.0-20.0); BLOOD GAS PCO2 22 mmHg (38-42); BLOOD GAS PO2 113 mmHg (61-120); BLOOD GAS TOTAL HGB 9.2 G/DL (12.0-16.0); TEMP CORR TO 98.6
[2016-03-28 06:15] LABS: CRITICAL VALUE YES; DRAW SITE LT RADIAL; FIO2 40 %; NUMBER OF ARTERIAL PUNCTURES 1; OXYGEN DEVICE VENTILATOR; STAT NO; ULNAR PULSE PRESENT; VENT SETTINGS AC/16/550/PEEP5
[2016-03-28] MEDS: INSULIN ASPART SUPPLEMENTAL SCALE SQ SCH ×3 (06:47→17:25)
[2016-03-28] MEDS: CHLORHEXIDINE 0.12% (ORAL KIT) 15 ML CUP MT SCH ×2 (08:00→22:55)
[2016-03-28] MEDS: TIMOLOL MALEATE 0.5% OPHT SOLN 5 ML BTL RIGHT EYE SCH ×2 (09:00→22:55)
[2016-03-28] MEDS: BRIMONIDINE TARTRATE 0.15% OPHT SOLN 5 ML BTL RIGHT EYE SCH ×2 (09:00→22:55)
[2016-03-28] MEDS: SODIUM CHLORIDE 0.9% FLUSH 5 ML FLUSH IVF SCH (09:41)
[2016-03-28] MEDS: FLUoxetine HCL 20 MG CAP PO SCH (09:53)
[2016-03-28] MEDS: LACTOBACILLUS ACIDOPHILUS TAB PO SCH ×2 (09:53→23:03)
--- NOTE | 2016-03-28 10:17 | HHI.PR ---
Subjective Subjective Notes Uneventful night; stable Weaning vent Objective Vitals/I&O Vital Signs Date Time Temp Pulse Resp B/P Pulse Ox O2 Delivery O2 Flow Rate FiO2 03/28/16 08:17 100 40 03/28/16 06:00 65 03/28/16 04:00 96.8 25 102/56 03/26/16 07:00 Mechanical Ventilator 03/24/16 10:00 15.00 Labs Laboratory Tests Test 03/27/16 03/27/16 03/28/16 10:35 20:15 06:01 Vancomycin Level Trough 7.9 Potassium Level 3.8 Phosphorus Level 2.1 Blood Gas Puncture Site LT RADIAL Blood Gas Patient Temperature 98.6 Blood Gas HCO3 20 Blood Gas Base Excess -1.6 Blood Gas Oxygen Saturation 96 Arterial Blood pH 7.57 Arterial Blood Partial 22 Pressure CO2 Arterial Blood Partial 113 Pressure O2 Arterial Blood Oxygen Content 12.7 Arterial Blood 1.4 Carboxyhemoglobin Arterial Blood Methemoglobin 1.0 Blood Gas Hemoglobin 9.2 Oxygen Delivery Device VENTILATOR Blood Gas Ventilator Setting AC/16/550/PEEP5 Blood Gas Inspired Oxygen 40 Date/Time Procedure Status Source Growth 03/24/16 10:00 Gram Stain - Final Complete Bronchial Washings Left Upper Lobe 03/24/16 10:00 Bronchial Culture - Final Complete S. Aureus Mrsa 03/24/16 10:00 Fungal Smear - Final Resulted Bronchial Washings Left Upper Lobe NO FUNGAL ELEMENTS SEEN. 03/24/16 10:00 Fungal Culture Resulted Bronchial Washings Left Upper Lobe Pending 03/24/16 10:00 Acid Fast Stain - Final Resulted Bronchial Washings Left Upper Lobe NO ACID FAST BACILLI SEEN 03/24/16 10:00 Mycobacterial Culture Resulted Bronchial Washings Left Upper Lobe Pending 03/24/16 10:00 Cancelled Bronchial Brushings Left Upper Lobe Lungs: Clear Abdomen: Non-distended, Non-tender Narrative Exam Yohannes dry and intact; wound with brownish drainage Yohannes removed from lower wound and drainage cultured and sent for Gram stain Wound repacked with 4 x 4's A/P Assessment and Plan Assessment: POD #7 resection small bowel. Re-Intubated due to respiratory failure. SBO, secondary to internal hernia with ischemia, s/p bowel resection and anastomosis. UTI; treated Plan: Keep NG until bowel activity; increase feeding to goal rate 50ml/hr. Keep intubated today. Pt. best served with tracheostomy, as he will likely fail extubation again. Patient has mesh exposed; discussed that this may need to eventually be removed if it does not granulate in. Discussed with family (son) present; reviewed with Dr. Mcintosh (classer) Mahesh Cordon MD Mar 28, 2016 10:17
[2016-03-28 10:43] LABS: AUTOMATED NEUTROPHIL # 14.5 TH/MM3 (1.8-7.7); BASOPHIL % 0.2 % (0.0-2.0); EOSINOPHIL # 0.2 TH/MM3 (0-0.4); EOSINOPHIL % 1.1 % (0.0-4.0); HEMATOCRIT 27.3 % (39.0-51.0); HEMO FLAGS AUTO DIFF; LYMPH % 5.6 % (9.0-44.0); LYMPHOCYTE # 0.9 TH/MM3 (1.0-4.8); MEAN CELL VOLUME 88.3 FL (80.0-100.0); MEAN CORPUSCULAR HEMOGLOBIN 29.9 PG (27.0-34.0); MEAN CORPUSCULAR HGB CONC 33.8 % (32.0-36.0); MONO % 6.7 % (0.0-8.0); NEUT % 86.4 % (16.0-70.0); PLATELET COUNT 211 TH/MM3 (150-450); RED BLOOD COUNT 3.09 MIL/MM3 (4.50-5.90); WHITE BLOOD COUNT 16.7 TH/MM3 (4.0-11.0)
[2016-03-28 11:00] LABS: BICARBONATE 23.3 MEQ/L (21.0-32.0); CALCIUM-PROTEIN CORRECTED 8.5 MG/DL (8.5-10.1); MAGNESIUM 1.6 MG/DL (1.5-2.5); POTASSIUM 3.4 MEQ/L (3.5-5.1); TOTAL BILIRUBIN ADULT 0.4 MG/DL (0.2-1.0)
[2016-03-28 11:11] LABS: BANDS 24 % (0-6); METAMYELOCYTES 2 % (0-1); MYELOCYTES 2 % (0-0); PLATELET ESTIMATE SMEAR NORMAL (NORMAL); PLATELET MORPHOLOGY NORMAL (NORMAL); POLYS (SEG NEUTROPHILS) 62 % (16-70); SCAN/DIFF FINAL DIFF MANUAL; WBC DIFF SAMPLE 100
[2016-03-28 11:12] LABS: TOXIC GRANULATION 2+ (NORMAL)
--- NOTE | 2016-03-28 11:21 | PD.CARD.PN ---
Subjective Subjective Remarks Awake. In no acute distress. Remains intubated. Objective Medications Item Value Date Time Amiodarone HCl 250 ml @ 0 mls/hr 03/26/16 1530 450 mg/Dextrose CONTINUOUS/IV 03/28/16 0343 Isosorbide 30 mg 03/19/16 0700 Mononitrate DAILY@07/PO (Ismo) Vital Signs / I&O Vital Signs Date Time Temp Pulse Resp B/P Pulse Ox O2 Delivery O2 Flow Rate FiO2 03/28/16 08:17 100 40 03/28/16 08:17 40 03/28/16 08:10 100 40 03/28/16 06:00 65 03/28/16 04:44 100 40 03/28/16 04:00 61 03/28/16 04:00 40 03/28/16 04:00 96.8 61 25 102/56 100 03/28/16 02:00 89 03/28/16 01:11 98 40 03/28/16 00:00 82 03/28/16 00:00 99.3 82 16 114/59 100 03/28/16 00:00 40 03/27/16 22:39 100 40 03/27/16 22:00 78 03/27/16 20:24 100 40 03/27/16 20:00 73 03/27/16 20:00 99.2 76 14 87/54 94 03/27/16 20:00 40 03/27/16 18:05 99 40 03/27/16 18:00 81 03/27/16 16:00 98.0 86 16 116/56 100 03/27/16 16:00 86 03/27/16 16:00 40 03/27/16 15:00 100 40 03/27/16 14:00 83 03/27/16 12:00 40 03/27/16 12:00 86 03/27/16 12:00 98.2 86 17 125/76 100 03/27/16 11:25 40 03/27/16 11:25 100 40 I/O 03/27/16 03/27/16 03/27/16 03/28/16 03/28/16 03/28/16 07:00 15:00 23:00 07:00 15:00 23:00 Intake Total 908 ml 1406 ml 921 ml 1116 ml Output Total 350 ml 300 ml 350 ml 220 ml Balance 558 ml 1106 ml 571 ml 896 ml IV Total 601 ml 1179 ml 668 ml 904 ml Tube Feeding 187 ml 137 ml 253 ml 212 ml Tube Irrigant 120 ml Other 90 ml Output Urine Total 350 ml 300 ml 350 ml 220 ml # Bowel Movements 1 1 Physical Exam GENERAL: Well developed, well nourished. No acute distress. Intubated. HEENT: Jugular venous pressure is normal. CHEST: Lungs clear to auscultation anteriorly. CARDIAC: Regular rate and rhythm without S3, S4, or murmur. ABDOMEN: Soft. Bowel sounds absent. EXTREMITIES: No clubbing, cyanosis, or edema. Laboratory Laboratory Tests Test 03/27/16 03/28/16 03/28/16 20:15 06:01 10:20 Potassium Level 3.8 MEQ/L 3.4 MEQ/L Phosphorus Level 2.1 MG/DL 1.9 MG/DL Blood Gas Puncture Site LT RADIAL Blood Gas Patient Temperature 98.6 Blood Gas HCO3 20 mmol/L Blood Gas Base Excess -1.6 mmol/L Blood Gas Oxygen Saturation 96 % Arterial Blood pH 7.57 Arterial Blood Partial 22 mmHg Pressure CO2 Arterial Blood Partial 113 mmHg Pressure O2 Arterial Blood Oxygen Content 12.7 Vol % Arterial Blood 1.4 % Carboxyhemoglobin Arterial Blood Methemoglobin 1.0 % Blood Gas Hemoglobin 9.2 G/DL Oxygen Delivery Device VENTILATOR Blood Gas Ventilator Setting AC/16/550/PEEP5 Blood Gas Inspired Oxygen 40 % White Blood Count 16.7 TH/MM3 Red Blood Count 3.09 MIL/MM3 Hemoglobin 9.2 GM/DL Hematocrit 27.3 % Mean Corpuscular Volume 88.3 FL Mean Corpuscular Hemoglobin 29.9 PG Mean Corpuscular Hemoglobin 33.8 % Concent Red Cell Distribution Width 14.0 % Platelet Count 211 TH/MM3 Mean Platelet Volume 7.5 FL Neutrophils (%) (Auto) 86.4 % Lymphocytes (%) (Auto) 5.6 % Monocytes (%) (Auto) 6.7 % Eosinophils (%) (Auto) 1.1 % Basophils (%) (Auto) 0.2 % Neutrophils # (Auto) 14.5 TH/MM3 Lymphocytes # (Auto) 0.9 TH/MM3 Monocytes # (Auto) 1.1 TH/MM3 Eosinophils # (Auto) 0.2 TH/MM3 Basophils # (Auto) 0.0 TH/MM3 CBC Comment AUTO DIFF Differential Total Cells 100 Counted Neutrophils % (Manual) 62 % Band Neutrophils % 24 % Lymphocytes % 6 % Monocytes % 4 % Neutrophils # (Manual) 15.0 TH/MM3 Metamyelocytes 2 % Myelocytes 2 % Differential Comment FINAL DIFF MANUAL Toxic Granulation 2+ Platelet Estimate NORMAL Platelet Morphology Comment NORMAL Sodium Level 138 MEQ/L Chloride Level 105 MEQ/L Carbon Dioxide Level 23.3 MEQ/L Anion Gap 10 MEQ/L Blood Urea Nitrogen 17 MG/DL Creatinine 0.71 MG/DL Estimat Glomerular Filtration 104 ML/MIN Rate Random Glucose 238 MG/DL Calcium Level 7.0 MG/DL Protein Corrected Calcium 8.5 MG/DL Magnesium Level 1.6 MG/DL Total Bilirubin 0.4 MG/DL Aspartate Amino Transf 20 U/L (AST/SGOT) Alanine Aminotransferase 23 U/L (ALT/SGPT) Alkaline Phosphatase 54 U/L Total Protein 4.3 GM/DL Albumin 1.6 GM/DL Assessment and Plan Problem List: (1) Paroxysmal atrial fibrillation Assessment and Plan: May be back in NSR on monitor. Echo reportedly shows mildly reduced EF 45% REC continue IV Amiodarone, check EKG will review echo when OK from surgery standpoint, rec aspirin suppository Code Status full code Discussed Condition With patient Mao Juarez MD Mar 28, 2016 11:21
--- NOTE | 2016-03-28 15:02 | HHI.CCPN ---
Subjective Remarks/Hospital Course This is a 89-year-old male. Date of admission 03/18/2016. Date of consultation 03/21/2016. Past medical history includes bilateral cataracts, hypertension, disability, hypothyroidism, insomnia and history of gastric cancer status post partial gastrectomy and history of multiple inguinal hernia repairs. He presented to [facility] on 03/18 with acute onset abdominal pain. No bowel movements for several days. CT abdomen and pelvis revealed there is a small bowel position the right upper quadrant pelvis with a "twisting action likely incarceration. Hospital submitted patient general surgery was consulted. She had NG tube placed in cerebral abdominal exams and x-rays performed. Patient's abdominal pain persisted of nausea and vomiting. The patient eventually aborted with Dr. Cordon. Patient underwent exploratory laparoscopy/lyse adhesions with small bowel's resection secondary to ischemic jejunum loop an intestinal hernia. 2600 crystalloid. Minimal blood loss. 250 cc urine output. Patient has been on Levaquin/Flagyl since/5D UTI. This be continued. Patient is currently arousable on the ventilator. We are asked to watch the patient overnight with possible extubation in a.m. Objective Vital Signs Date Time Temp Pulse Resp B/P Pulse Ox O2 Delivery O2 Flow Rate FiO2 03/28/16 11:03 100 40 03/28/16 06:00 65 03/28/16 04:00 96.8 25 102/56 03/26/16 07:00 Mechanical Ventilator 03/24/16 10:00 15.00 Intake and Output 03/27/16 03/27/16 03/28/16 08:00 16:00 00:00 Intake Total 908 ml 1406 ml 921 ml Output Total 350 ml 300 ml 350 ml Balance 558 ml 1106 ml 571 ml Result Diagram: 03/28/16 1020 03/28/16 1020 Other Results Laboratory Tests Test 03/28/16 06:01 Blood Gas Puncture Site LT RADIAL Blood Gas Patient Temperature 98.6 Blood Gas HCO3 20 mmol/L (22-26) Blood Gas Base Excess -1.6 mmol/L (-2-2) Blood Gas Oxygen Saturation 96 % (90-100) Arterial Blood pH 7.57 (7.380-7.420) Arterial Blood Partial 22 mmHg (38-42) Pressure CO2 Arterial Blood Partial 113 mmHg Pressure O2 (61-120) Arterial Blood Oxygen Content 12.7 Vol % (12.0-20.0) Arterial Blood 1.4 % (0-4) Carboxyhemoglobin Arterial Blood Methemoglobin 1.0 % (0-2) Blood Gas Hemoglobin 9.2 G/DL (12.0-16.0) Oxygen Delivery Device VENTILATOR Blood Gas Ventilator Setting AC/16/550/PEEP5 Blood Gas Inspired Oxygen 40 % Imaging Last Impressions Chest X-Ray 03/21/16 1527 Signed Impressions: Service Date/Time: Monday, March 21, 2016 15:21 - CONCLUSION: 1. No pneumothorax status post placement of right internal jugular central line which has its tip in the superior vena cava. 2. Persistent malposition of the tip of the left subclavian central line which is located in the neck in the expected region of the internal jugular vein. 3. No significant change in the bibasilar patchiness consistent with a atelectasis and/or mild infiltrates. Tyrese Zamudio MD Abdomen X-Ray 03/20/16 0600 Signed Impressions: Service Date/Time: Sunday, March 20, 2016 05:55 - CONCLUSION: Increasing gaseous distention of loops of small bowel in the left abdomen. Jian Kessler MD Abdomen/Pelvis CT 03/18/16 1511 Signed Impressions: Service Date/Time: March 16:24 - CONCLUSION: Small bowel obstruction. Berlin Metzger MD Objective Remarks GENERAL: 89-year-old male, critically ill currently orotracheally intubated SKIN: Warm and dry. No rash HEAD: Atraumatic. Normocephalic. EYES: Right pupil is 8 mm and fixed. Left pupil is pinpoint and minimally reactive. No scleral icterus. No injection or drainage. ENT: No nasal bleeding or discharge. Mucous membranes pink and moist. NECK: Trachea midline. No JVD. Right IJ CVL clean dry and intact. CARDIOVASCULAR: Regular rate and rhythm. S1, S2. No S4. Distant. No murmur appreciated RESPIRATORY: Clear to auscultation. Breath sounds equal bilaterally. GASTROINTESTINAL: Abdomen soft, non-tender, nondistended. Midline abpad place without drainage. Hypoactive bowel sounds appreciated MUSCULOSKELETAL: Extremities without significant peripheral edema. No obvious deformities. NEUROLOGICAL: Right pupil is fixed and dilated. Left pupil Reacts. Positive gag. Moves all 4 extremities to noxious stimuli.. No obvious cranial nerve deficits. Motor grossly within normal limits Date of Insertion: Mar 21, 2016 Line: Central Venous Catheter Side: Right Location: Internal, Jugular A/P Assessment and Plan Respiratory failure - re-intubated due to complete opacification of left hemothorax 03/24 - ACV 12/500/5/100 - Ventilator bundle - Bronchodilator therapy if needed every 2 hours - Bronchoscopy performed 03/24 - improvement on CXR , no interval of change today - doing well on SBT - will attempt to extubate Cataract and Macular degeneration - Currently Alphagan D 1 drop right eye twice a day. . - continue Timoptic xc 0.25% 1 drop right eye at night. Depression - Trazodone 50 at night resume when extubated Hypertension - hemodynamically stable - normotensive - monitor Atrial fibrilation - Amiodaron per cardiology Dyslipidemia - atorvastatin 40 mg resume when p.o. ok by GS Ischemic jejunum in internal hernia - Postop day #6 exploratory laparotomy - lysis of adhesions - small bowel resection - Vital at goal of 30 - tolerating well - adjust per Surgeon BPH - Patient is on dutasteride 0.5 mg at night for . Diabetes mellitus - Sliding scale insulin - Holding metformin while in the ICU Hypothyroidism - Levoxyl 112 g daily Access - Right IJ CVL day 6 Prophylaxis - GI - Protonix - DVT - SCD/pharmacological prophylaxis when okay with general surgery Level 3 Eric Mcintosh MD Mar 28, 2016 15:02
[2016-03-28] MEDS: DEXT 5%-NACL 0.45% 1000 ML INJ 1,000 ML IV SCH (17:14)
[2016-03-28 18:25] LABS: POTASSIUM 4.1 MEQ/L (3.5-5.1)
[2016-03-28] MEDS: FINASTERIDE 5 MG TAB PO SCH (23:03)
[2016-03-28] MEDS: LEVOFLOXACIN 500 MG PREMIX INJ 100 ML IV SCH (23:04)
[2016-03-29] VITALS (20 sets, daily range): BP systolic 116–132; BP diastolic 53–64; PULSE 54–62; RESP 15–32; TEMP 97.3–98.6; O2SAT 97–100
[2016-03-29] MEDS: RESP: ALBUTEROL 2.5 MG/IPRATROPIUM 0.5 MG NEB (PRN) NEB (00:24)
[2016-03-29] MEDS: INSULIN ASPART SUPPLEMENTAL SCALE SQ SCH ×5 (00:29→21:00)
[2016-03-29] MEDS: VANCOMYCIN 1,500 MG/NS 500 ML IV SCH ×4 (00:29→18:32)
[2016-03-29] MEDS: ISOSORBIDE MONONITRATE 20 MG TAB PO SCH (03:52)
[2016-03-29 04:32] LABS: BLOOD GAS CARBOXYHEMOGLOBIN 1.1 % (0-4); BLOOD GAS HCO3 24 mmol/L (22-26); BLOOD GAS METHEMOGLOBIN 1.2 % (0-2); BLOOD GAS O2 HGB SATURATION 94 % (90-100); BLOOD GAS OXYGEN CONTENT 14.3 Vol % (12.0-20.0); BLOOD GAS PCO2 58 mmHg (38-42); BLOOD GAS PO2 82 mmHg (61-120); BLOOD GAS TOTAL HGB 10.8 G/DL (12.0-16.0); CRITICAL VALUE YES; DRAW SITE RT RADIAL; FIO2 40 %; NUMBER OF ARTERIAL PUNCTURES 1; OXYGEN DEVICE Venti Mask; STAT NO; TEMP CORR TO 98.6; ULNAR PULSE PRESENT
[2016-03-29 05:00] LABS: AUTOMATED NEUTROPHIL # 21.7 TH/MM3 (1.8-7.7); BASOPHIL % 0.2 % (0.0-2.0); EOSINOPHIL # 0.1 TH/MM3 (0-0.4); EOSINOPHIL % 0.6 % (0.0-4.0); HEMATOCRIT 31.6 % (39.0-51.0); LYMPH % 4.4 % (9.0-44.0); LYMPHOCYTE # 1.1 TH/MM3 (1.0-4.8); MEAN CORPUSCULAR HEMOGLOBIN 30.1 PG (27.0-34.0); MEAN CORPUSCULAR HGB CONC 33.5 % (32.0-36.0); NEUT % 88.8 % (16.0-70.0); PLATELET COUNT 293 TH/MM3 (150-450); RED BLOOD COUNT 3.51 MIL/MM3 (4.50-5.90); RED CELL DISTRIBUTION WIDTH 14.6 % (11.6-17.2); WHITE BLOOD COUNT 24.5 TH/MM3 (4.0-11.0)
[2016-03-29 05:07] LABS: HEMO FLAGS AUTO DIFF
[2016-03-29 05:21] LABS: CALCIUM-PROTEIN CORRECTED 8.7 MG/DL (8.5-10.1); MAGNESIUM 1.8 MG/DL (1.5-2.5); POTASSIUM 4.3 MEQ/L (3.5-5.1); TOTAL BILIRUBIN ADULT 0.3 MG/DL (0.2-1.0)
--- NOTE | 2016-03-29 05:21 | RADRPT ---
EXAM DATE/TIME: 03/29/2016 04:21 [facility] COMPARISON: CHEST SINGLE AP, March 28, 2016, 3:40. INDICATIONS : Please evaluate after respiratory failure. MEDICAL HISTORY : Carcinoma, gastric. SURGICAL HISTORY : None. ENCOUNTER: Subsequent ACUITY: 2 weeks PAIN SCORE: Non-responsive. LOCATION: Bilateral chest FINDINGS: There has been interval extubation. Nasogastric tube and right central line remain. There is persiste nt hazy opacity over the lower lung falcon bilaterally, likely layering effusions and alveolar diseas e. Probably slight interval improvement. CONCLUSION: Interval extubation. Slight improvement in aeration. Berlin Metzger MD on March 29, 2016 at 5:18 Board Certified Radiologist. This report was verified electronically.
[2016-03-29 05:37] LABS: OVALOCYTES 1+ (NORMAL); SCAN/DIFF AUTO DIFF CONFIRMED; TOXIC GRANULATION 2+ (NORMAL)
[2016-03-29] MEDS: LEVOTHYROXINE SODIUM 112 MCG TAB PO SCH (05:38)
[2016-03-29] MEDS: metroNIDAZOLE 500 MG INJ 100 ML IV SCH ×3 (05:38→21:02)
[2016-03-29] MEDS: SODIUM CHLORIDE 0.9% FLUSH 5 ML FLUSH IVF SCH (08:43)
[2016-03-29] MEDS: CHLORHEXIDINE 0.12% (ORAL KIT) 15 ML CUP MT SCH ×2 (08:44→20:00)
[2016-03-29] MEDS: TIMOLOL MALEATE 0.5% OPHT SOLN 5 ML BTL RIGHT EYE SCH ×2 (08:44→21:00)
[2016-03-29] MEDS: BRIMONIDINE TARTRATE 0.15% OPHT SOLN 5 ML BTL RIGHT EYE SCH ×2 (08:44→21:00)
[2016-03-29] MEDS: FLUoxetine HCL 20 MG CAP PO SCH (08:44)
[2016-03-29] MEDS: LACTOBACILLUS ACIDOPHILUS TAB PO SCH ×2 (08:44→21:02)
[2016-03-29] MEDS ORDERED: SUCCINYLCHOLINE CHLORIDE 200 MG/10 ML VIAL ONE (09:59)
[2016-03-29] MEDS ORDERED: ETOMIDATE 40 MG/20 ML VIAL ONE (10:00)
--- NOTE | 2016-03-29 11:18 | PD.CARD.PN ---
Subjective Subjective Remarks Sedated. Intubated. Objective Medications Item Value Date Time Amiodarone HCl 250 ml @ 0 mls/hr 03/26/16 1530 450 mg/Dextrose CONTINUOUS/IV 03/28/16 1726 Vital Signs / I&O Vital Signs Date Time Temp Pulse Resp B/P Pulse Ox O2 Delivery O2 Flow Rate FiO2 03/29/16 10:31 100 100 03/29/16 08:39 97 Venturi Mask 40 03/29/16 06:00 59 03/29/16 04:00 60 03/29/16 04:00 98.0 61 18 118/59 98 03/29/16 04:00 98 Venturi Mask 40 03/29/16 02:00 59 03/29/16 00:00 62 03/29/16 00:00 97.4 62 32 132/64 99 03/28/16 22:00 65 03/28/16 20:15 100 Venturi Mask 6.00 50 03/28/16 20:00 98.0 63 21 134/62 100 03/28/16 20:00 63 03/28/16 18:00 68 03/28/16 17:00 96 Non-Rebreather 15.00 03/28/16 16:00 66 03/28/16 16:00 97.5 66 28 146/67 96 03/28/16 15:03 96 Nasal Cannula 4 03/28/16 14:00 58 03/28/16 13:43 100 40 03/28/16 12:00 57 03/28/16 12:00 40 03/28/16 12:00 98.2 57 27 105/56 99 I/O 03/28/16 03/28/16 03/28/16 03/29/16 03/29/16 03/29/16 07:00 15:00 23:00 07:00 15:00 23:00 Intake Total 1116 ml 1022 ml 1021 ml 1231 ml Output Total 220 ml 350 ml 450 ml 500 ml Balance 896 ml 672 ml 571 ml 731 ml IV Total 904 ml 754 ml 511 ml 894 ml Tube Feeding 212 ml 138 ml 450 ml 277 ml Tube Irrigant 60 ml 60 ml Other 130 ml Output Urine Total 220 ml 350 ml 450 ml 500 ml # Bowel Movements 0 0 2 Physical Exam GENERAL: Well developed, well nourished. No acute distress. Intubated. HEENT: Jugular venous pressure is normal. CHEST: Lungs clear to auscultation anteriorly. CARDIAC: Regular rate and rhythm without S3, S4, or murmur. ABDOMEN: Soft. Bowel sounds absent. EXTREMITIES: SCD's in place. Laboratory Laboratory Tests Test 03/28/16 03/29/16 03/29/16 17:30 04:25 04:30 Potassium Level 4.1 MEQ/L 4.3 MEQ/L Phosphorus Level 2.6 MG/DL 2.6 MG/DL Blood Gas Puncture Site RT RADIAL Blood Gas Patient Temperature 98.6 Blood Gas HCO3 24 mmol/L Blood Gas Base Excess -2.0 mmol/L Blood Gas Oxygen Saturation 94 % Arterial Blood pH 7.25 Arterial Blood Partial 58 mmHg Pressure CO2 Arterial Blood Partial 82 mmHg Pressure O2 Arterial Blood Oxygen Content 14.3 Vol % Arterial Blood 1.1 % Carboxyhemoglobin Arterial Blood Methemoglobin 1.2 % Blood Gas Hemoglobin 10.8 G/DL Oxygen Delivery Device Venti Mask Blood Gas Inspired Oxygen 40 % White Blood Count 24.5 TH/MM3 Red Blood Count 3.51 MIL/MM3 Hemoglobin 10.6 GM/DL Hematocrit 31.6 % Mean Corpuscular Volume 90.0 FL Mean Corpuscular Hemoglobin 30.1 PG Mean Corpuscular Hemoglobin 33.5 % Concent Red Cell Distribution Width 14.6 % Platelet Count 293 TH/MM3 Mean Platelet Volume 7.1 FL Neutrophils (%) (Auto) 88.8 % Lymphocytes (%) (Auto) 4.4 % Monocytes (%) (Auto) 6.0 % Eosinophils (%) (Auto) 0.6 % Basophils (%) (Auto) 0.2 % Neutrophils # (Auto) 21.7 TH/MM3 Lymphocytes # (Auto) 1.1 TH/MM3 Monocytes # (Auto) 1.5 TH/MM3 Eosinophils # (Auto) 0.1 TH/MM3 Basophils # (Auto) 0.0 TH/MM3 CBC Comment AUTO DIFF Differential Comment AUTO DIFF CONFIRMED Toxic Granulation 2+ Ovalocytes 1+ Sodium Level 139 MEQ/L Chloride Level 107 MEQ/L Carbon Dioxide Level 26.0 MEQ/L Anion Gap 6 MEQ/L Blood Urea Nitrogen 17 MG/DL Creatinine 0.66 MG/DL Estimat Glomerular Filtration 114 ML/MIN Rate Random Glucose 226 MG/DL Calcium Level 7.4 MG/DL Protein Corrected Calcium 8.7 MG/DL Magnesium Level 1.8 MG/DL Total Bilirubin 0.3 MG/DL Aspartate Amino Transf 19 U/L (AST/SGOT) Alanine Aminotransferase 26 U/L (ALT/SGPT) Alkaline Phosphatase 64 U/L Total Protein 4.8 GM/DL Albumin 1.8 GM/DL Assessment and Plan Problem List: (1) Paroxysmal atrial fibrillation Assessment and Plan: Appears to be in sinus bradycardia, HR 50's. Echo reportedly shows mildly reduced EF 45% (appears closer to 50-55% on my review). REC continue IV Amiodarone, may need to hold if bradycardia worsens when OK from surgery standpoint, rec aspirin suppository Code Status full code Mao Juarez MD Mar 29, 2016 11:18
--- NOTE | 2016-03-29 11:52 | HHI.CCPN ---
Subjective Remarks/Hospital Course This is a 89-year-old male. Date of admission 03/18/2016. Date of consultation 03/21/2016. Past medical history includes bilateral cataracts, hypertension, disability, hypothyroidism, insomnia and history of gastric cancer status post partial gastrectomy and history of multiple inguinal hernia repairs. He presented to [facility] on 03/18 with acute onset abdominal pain. No bowel movements for several days. CT abdomen and pelvis revealed there is a small bowel position the right upper quadrant pelvis with a "twisting action likely incarceration. Hospital submitted patient general surgery was consulted. She had NG tube placed in cerebral abdominal exams and x-rays performed. Patient's abdominal pain persisted of nausea and vomiting. The patient eventually aborted with Dr. Cordon. Patient underwent exploratory laparoscopy/lyse adhesions with small bowel's resection secondary to ischemic jejunum loop an intestinal hernia. 2600 crystalloid. Minimal blood loss. 250 cc urine output. Patient has been on Levaquin/Flagyl since/5D UTI. This be continued. Patient is currently arousable on the ventilator. Multiple failures to extubate - Trach 03/29 Objective Vital Signs Date Time Temp Pulse Resp B/P Pulse Ox O2 Delivery O2 Flow Rate FiO2 03/29/16 11:34 100 45 03/29/16 08:39 Venturi Mask 03/29/16 06:00 59 03/29/16 04:00 98.0 18 118/59 03/28/16 20:15 6.00 Intake and Output 03/28/16 03/28/16 03/29/16 08:00 16:00 00:00 Intake Total 1116 ml 1022 ml 1021 ml Output Total 220 ml 350 ml 450 ml Balance 896 ml 672 ml 571 ml Result Diagram: 03/29/16 0430 03/29/16 0430 Other Results Laboratory Tests Test 03/29/16 04:25 Blood Gas Puncture Site RT RADIAL Blood Gas Patient Temperature 98.6 Blood Gas HCO3 24 mmol/L (22-26) Blood Gas Base Excess -2.0 mmol/L (-2-2) Blood Gas Oxygen Saturation 94 % (90-100) Arterial Blood pH 7.25 (7.380-7.420) Arterial Blood Partial 58 mmHg (38-42) Pressure CO2 Arterial Blood Partial 82 mmHg Pressure O2 (61-120) Arterial Blood Oxygen Content 14.3 Vol % (12.0-20.0) Arterial Blood 1.1 % (0-4) Carboxyhemoglobin Arterial Blood Methemoglobin 1.2 % (0-2) Blood Gas Hemoglobin 10.8 G/DL (12.0-16.0) Oxygen Delivery Device Venti Mask Blood Gas Inspired Oxygen 40 % Imaging Last 24 hours Impressions Chest X-Ray 03/29/16 0600 Signed Impressions: Service Date/Time: Tuesday, March 29, 2016 04:21 - CONCLUSION: Interval extubation. Slight improvement in aeration. Berlin Metzger MD Objective Remarks GENERAL: 89-year-old male, critically ill currently orotracheally intubated SKIN: Warm and dry. No rash HEAD: Atraumatic. Normocephalic. EYES: Right pupil is 8 mm and fixed. Left pupil is pinpoint and minimally reactive. No scleral icterus. No injection or drainage. ENT: No nasal bleeding or discharge. Mucous membranes pink and moist. NECK: Trachea midline. No JVD. Right IJ CVL clean dry and intact. CARDIOVASCULAR: Regular rate and rhythm. S1, S2. No S4. Distant. No murmur appreciated RESPIRATORY: Clear to auscultation. Breath sounds equal bilaterally. GASTROINTESTINAL: Abdomen soft, non-tender, nondistended. Midline abpad place without drainage. Hypoactive bowel sounds appreciated MUSCULOSKELETAL: Extremities without significant peripheral edema. No obvious deformities. NEUROLOGICAL: Right pupil is fixed and dilated. Left pupil Reacts. Positive gag. Moves all 4 extremities to noxious stimuli.. No obvious cranial nerve deficits. Motor grossly within normal limits Date of Insertion: Mar 21, 2016 Line: Central Venous Catheter Side: Right Location: Internal, Jugular A/P Assessment and Plan Respiratory failure - re-intubated due to complete opacification of left hemothorax 03/24 - Extubated 03/28 - Re-intubated 03/29 - and Tracheostomy placed - ACV 12/500/5/100 will wean to CPAP and TPs as tolerated - Ventilator bundle - Bronchodilator therapy if needed every 2 hours - Bronchoscopy performed 03/24 - improvement on CXR , no interval of change today MRSA PNA - Van per Pharmacy dosing Cataract and Macular degeneration - Currently Alphagan D 1 drop right eye twice a day. . - continue Timoptic xc 0.25% 1 drop right eye at night. Depression - Trazodone 50 at night resume when extubated Hypertension - hemodynamically stable - normotensive - monitor Atrial fibrilation - Amiodaron per cardiology Dyslipidemia - atorvastatin 40 mg resume when p.o. ok by GS Ischemic jejunum in internal hernia - Postop day #6 exploratory laparotomy - lysis of adhesions - small bowel resection - Vital at goal of 30 - tolerating well - adjust per Surgeon BPH - Patient is on dutasteride 0.5 mg at night for . Diabetes mellitus - Sliding scale insulin - Holding metformin while in the ICU Hypothyroidism - Levoxyl 112 g daily Access - Right IJ CVL day 6 Prophylaxis - GI - Protonix - DVT - SCD/pharmacological prophylaxis when okay with general surgery Level 3 Eric Mcintosh MD Mar 29, 2016 11:52
[2016-03-29] MEDS ORDERED: SUCCINYLCHOLINE CHLORIDE 200 MG/10 ML VIAL IV ONE (12:00)
[2016-03-29] MEDS ORDERED: ETOMIDATE 20 MG/10 ML VIAL IV PUSH ONE (12:00)
--- NOTE | 2016-03-29 12:00 | RADRPT ---
EXAM DATE/TIME: 03/29/2016 11:19 [facility] COMPARISON: CHEST EXPIRATION ONLY, March 21, 2016, 14:42. INDICATIONS: Eval for PTX MEDICAL HISTORY: Carcinoma, gastric. Respiratory Failure. SURGICAL HISTORY: Tracheostomy ENCOUNTER: Subsequent ACUITY: 2 weeks PAIN SCORE: Non-responsive. LOCATION: Chest FINDINGS: Central venous catheter, ET tube and nasogastric tube are in good position. There is no evidence for a pneumothorax. There is no subcutaneous air. CONCLUSION: 1. There is no evidence for pneumothorax. 2. Tracheostomy tube is in good position. Tyron Knight MD FACR on March 29, 2016 at 11:48 Board Certified Radiologist. This report was verified electronically.
[2016-03-29 12:40] LABS: C. DIFF EPI 027 PRESUMPTIVE NEGATIVE (NEGATIVE); C. DIFF TOXIN PCR NEGATIVE (NEGATIVE)
[2016-03-29] MEDS ORDERED: ATROPINE SULFATE 1 MG/10 ML SYRINGE ONE (12:48)
[2016-03-29] MEDS ORDERED: LIDOCAINE HCL 2% 100 MG/5 ML SYRINGE ONE (12:48)
[2016-03-29] MEDS ORDERED: EPINEPHrine HCL (1:10,000) 1 MG/10 ML SYRINGE ONE (12:48)
[2016-03-29] MEDS ORDERED: IOHEXOL 350 MG/ML 10 ML VIAL (for RAD DIAG) IV ONE (13:10)
--- NOTE | 2016-03-29 13:47 | RADRPT ---
EXAM DATE/TIME: 03/29/2016 13:06 [facility] COMPARISON: CHEST EXPIRATION ONLY, March 29, 2016, 11:19. INDICATIONS : Elevated white blood cell count. IV CONTRAST: 100 cc Omnipaque 350 (iohexol) IV ORAL CONTRAST: No oral contrast ingested. RADIATION DOSE: 9.96 CTDIvol (mGy) MEDICAL HISTORY : Cardiovascular disease. Hypertension. SURGICAL HISTORY : Bladder tumor removal. ENCOUNTER: Initial ACUITY: 1 day PAIN SCALE: 0/10 LOCATION: Bilateral abdomen. TECHNIQUE: Volumetric scanning of the abdomen and pelvis was performed. Using automated exposure control and ad justment of the mA and/or kV according to patient size, radiation dose was kept as low as reasonably achievable to obtain optimal diagnostic quality images. FINDINGS: LOWER LUNGS: Bilateral pleural effusions with compressive atelectasis. LIVER: Homogeneous density without lesion. There is no dilation of the biliary tree. No calcified gallston es. SPLEEN: Normal size without lesion. PANCREAS: Within normal limits. KIDNEYS: Normal in size and shape. There is no mass, stone or hydronephrosis. ADRENAL GLANDS: Within normal limits. VASCULAR: There is no aortic aneurysm. Atherosclerotic changes. BOWEL/MESENTERY: There is an NG tube in the stomach. The bowel gas pattern is within normal limits. No abnormal dilata tion of large or small bowel. There is stool in the colon. There is a small amount of fluid in the pa racolic gutters bilaterally. There is a small amount of fluid adjacent to the liver. No loculated flu id collections are seen to suggest an abscess. No definite free air. Postsurgical changes are noted c haracteristic the patient's recent abdominal surgery. ABDOMINAL WALL: There is edema throughout the body wall characteristic for anasarca. Postsurgical changes are noted a long the anterior midabdomen characteristic of previous surgery. RETROPERITONEUM: There is no lymphadenopathy. BLADDER: Lassiter catheter. Bladder decompressed. REPRODUCTIVE: The prostate measures 5.5 cm. INGUINAL: There is no lymphadenopathy or hernia. MUSCULOSKELETAL: There are degenerative changes present. Previous kyphoplasty at L2. CONCLUSION: 1. There are bilateral pleural effusions with compressive bibasilar atelectasis. 2. Trace of fluid in the paracolic gutters bilaterally and adjacent to the liver.. 3. No loculated fluid collections are demonstrated to indicate an abscess. 4. Bowel gas pattern within normal limits for this postoperative patient. 5. Diffuse anasarca 6. Mild diffuse enlargement of the prostate gland. Reginald Montelongo MD on March 29, 2016 at 13:22 Board Certified Radiologist. This report was verified electronically.
[2016-03-29 15:14] LABS: BLOOD GAS CARBOXYHEMOGLOBIN 1.2 % (0-4); BLOOD GAS HCO3 25 mmol/L (22-26); BLOOD GAS O2 HGB SATURATION 97 % (90-100); BLOOD GAS OXYGEN CONTENT 14.3 Vol % (12.0-20.0); BLOOD GAS PCO2 44 mmHg (38-42); BLOOD GAS PO2 125 mmHg (61-120); BLOOD GAS TOTAL HGB 10.4 G/DL (12.0-16.0); CRITICAL VALUE NO; OXYGEN DEVICE VENTILATOR; TEMP CORR TO 98.6
[2016-03-29 15:15] LABS: DRAW SITE RT RADIAL; FIO2 45 %; NUMBER OF ARTERIAL PUNCTURES 1; STAT YES; ULNAR PULSE PRESENT
[2016-03-29] MEDS ORDERED: PHARMACY ORDERED LAB XX ONE (16:45)
[2016-03-29] MEDS: DEXT 5%-NACL 0.45% 1000 ML INJ 1,000 ML IV SCH (17:17)
--- NOTE | 2016-03-29 19:41 | EKG ---
Date Performed: 03/28/2016 Time Performed: 12:58:26 PTAGE: 89 years EKG: Sinus rhythm WITH OCCASIONAL SUPRAVENTRICULAR PREMATURE COMPLEXES BORDERLINE LEFT AXIS DEVIATION INTRAVENTRICULAR CONDUCTION DELAY ABNORMAL ECG PREVIOUS TRACING : 03/27/2016 07.29 DOCTOR: Edgardo Pitts Interpretating Date/Time 03/29/2016 19:35:48
--- NOTE | 2016-03-29 20:16 | HHI.PR ---
Subjective Subjective Notes Patient was extubated yesterday; now using accessory muscles to breathe. Nods that he is not having any pain. Objective Vitals/I&O Vital Signs Date Time Temp Pulse Resp B/P Pulse Ox O2 Delivery O2 Flow Rate FiO2 03/29/16 18:00 58 03/29/16 16:00 97.3 17 116/53 100 03/29/16 15:55 45 03/29/16 08:39 Venturi Mask 03/28/16 20:15 6.00 Labs Laboratory Tests Test 03/29/16 03/29/16 03/29/16 03/29/16 04:25 04:30 09:00 15:10 Blood Gas Puncture Site RT RADIAL RT RADIAL Blood Gas Patient Temperature 98.6 98.6 Blood Gas HCO3 24 25 Blood Gas Base Excess -2.0 0.0 Blood Gas Oxygen Saturation 94 97 Arterial Blood pH 7.25 7.37 Arterial Blood Partial 58 44 Pressure CO2 Arterial Blood Partial 82 125 Pressure O2 Arterial Blood Oxygen Content 14.3 14.3 Arterial Blood 1.1 1.2 Carboxyhemoglobin Arterial Blood Methemoglobin 1.2 1.0 Blood Gas Hemoglobin 10.8 10.4 Oxygen Delivery Device Venti Mask VENTILATOR Blood Gas Inspired Oxygen 40 45 White Blood Count 24.5 Red Blood Count 3.51 Hemoglobin 10.6 Hematocrit 31.6 Mean Corpuscular Volume 90.0 Mean Corpuscular Hemoglobin 30.1 Mean Corpuscular Hemoglobin 33.5 Concent Red Cell Distribution Width 14.6 Platelet Count 293 Mean Platelet Volume 7.1 Neutrophils (%) (Auto) 88.8 Lymphocytes (%) (Auto) 4.4 Monocytes (%) (Auto) 6.0 Eosinophils (%) (Auto) 0.6 Basophils (%) (Auto) 0.2 Neutrophils # (Auto) 21.7 Lymphocytes # (Auto) 1.1 Monocytes # (Auto) 1.5 Eosinophils # (Auto) 0.1 Basophils # (Auto) 0.0 CBC Comment AUTO DIFF Differential Comment AUTO DIFF CONFIRMED Toxic Granulation 2+ Ovalocytes 1+ Sodium Level 139 Potassium Level 4.3 Chloride Level 107 Carbon Dioxide Level 26.0 Anion Gap 6 Blood Urea Nitrogen 17 Creatinine 0.66 Estimat Glomerular Filtration 114 Rate Random Glucose 226 Calcium Level 7.4 Protein Corrected Calcium 8.7 Phosphorus Level 2.6 Magnesium Level 1.8 Total Bilirubin 0.3 Aspartate Amino Transf 19 (AST/SGOT) Alanine Aminotransferase 26 (ALT/SGPT) Alkaline Phosphatase 64 Total Protein 4.8 Albumin 1.8 Stool C. difficile Toxin (PCR) NEGATIVE Stl C. difficile Toxin PRESUMPTIVE Epiderm 027 NEGATIVE Blood Gas Ventilator Setting CPAP 12 Test 03/29/16 16:45 Vancomycin Level Trough 13.1 Date/Time Procedure Status Source Growth 03/28/16 10:00 Gram Stain - Final Resulted Wound Drainage 03/28/16 10:00 Wound Culture - Preliminary Resulted S. Aureus Mrsa Lungs: Upper airway course sound Abdomen: Non-distended, Non-tender Narrative Exam Wound clean with minimal drainage Packing changed with nurse A/P Assessment and Plan Assessment: POD #8 resection small bowel. Re-Intubated due to respiratory failure. Percutaneous tracheostomy performed today SBO, secondary to internal hernia with ischemia, s/p bowel resection and anastomosis. UTI; treated MRSA in sputum and wound now. Plan: Keep NG until bowel activity; increase feeding to goal rate 50ml/hr. CT abdomen for increasing WBC's completed; no fluid/abscess/hematoma to be drained intra-abdominally. Small pleural effusions. Continue antibiotics Wean vent again. Mahesh Cordon MD Mar 29, 2016 20:16
[2016-03-29] MEDS: FINASTERIDE 5 MG TAB PO SCH (21:02)
[2016-03-29] MEDS: LEVOFLOXACIN 500 MG PREMIX INJ 100 ML IV SCH (23:12)
[2016-03-30] VITALS (19 sets, daily range): BP systolic 86–119; BP diastolic 48–56; PULSE 50–60; RESP 13–22; TEMP 97.8–100.3; O2SAT 97–100
[2016-03-30] MEDS: LEVOTHYROXINE SODIUM 112 MCG TAB PO SCH (04:54)
[2016-03-30] MEDS: metroNIDAZOLE 500 MG INJ 100 ML IV SCH ×2 (04:54→13:51)
[2016-03-30] MEDS: ISOSORBIDE MONONITRATE 20 MG TAB PO SCH (04:55)
[2016-03-30 05:42] LABS: AUTOMATED NEUTROPHIL # 17.7 TH/MM3 (1.8-7.7); BASOPHIL # 0.1 TH/MM3 (0-0.2); BASOPHIL % 0.3 % (0.0-2.0); EOSINOPHIL # 0.3 TH/MM3 (0-0.4); EOSINOPHIL % 1.5 % (0.0-4.0); HEMATOCRIT 28.9 % (39.0-51.0); LYMPHOCYTE # 0.6 TH/MM3 (1.0-4.8); MEAN CELL VOLUME 88.8 FL (80.0-100.0); MEAN CORPUSCULAR HEMOGLOBIN 29.3 PG (27.0-34.0); MONO % 5.7 % (0.0-8.0); NEUT % 89.5 % (16.0-70.0); PLATELET COUNT 302 TH/MM3 (150-450); RED BLOOD COUNT 3.25 MIL/MM3 (4.50-5.90); RED CELL DISTRIBUTION WIDTH 14.5 % (11.6-17.2); WHITE BLOOD COUNT 19.8 TH/MM3 (4.0-11.0)
[2016-03-30 05:54] LABS: HEMO FLAGS AUTO DIFF
[2016-03-30 06:03] LABS: CALCIUM-PROTEIN CORRECTED 8.5 MG/DL (8.5-10.1); MAGNESIUM 1.8 MG/DL (1.5-2.5); TOTAL BILIRUBIN ADULT 0.2 MG/DL (0.2-1.0)
[2016-03-30 06:16] LABS: BLOOD GAS BASE EXCESS 0.9 mmol/L (-2-2); BLOOD GAS CARBOXYHEMOGLOBIN 1.2 % (0-4); BLOOD GAS HCO3 26 mmol/L (22-26); BLOOD GAS METHEMOGLOBIN 1.1 % (0-2); BLOOD GAS O2 HGB SATURATION 96 % (90-100); BLOOD GAS OXYGEN CONTENT 13.9 Vol % (12.0-20.0); BLOOD GAS PCO2 49 mmHg (38-42); BLOOD GAS PO2 125 mmHg (61-120); BLOOD GAS TOTAL HGB 10.1 G/DL (12.0-16.0); TEMP CORR TO 98.6
[2016-03-30 06:17] LABS: CRITICAL VALUE NO; OXYGEN DEVICE VENTILATOR
[2016-03-30 06:18] LABS: DRAW SITE RT RADIAL; FIO2 45 %; VENT SETTINGS CPAP/PS10/PEEP5
[2016-03-30 06:19] LABS: NUMBER OF ARTERIAL PUNCTURES 1; STAT NO; ULNAR PULSE PRESENT
--- NOTE | 2016-03-30 06:48 | RADRPT ---
EXAM DATE/TIME: 03/30/2016 05:53 [facility] COMPARISON: CHEST EXPIRATION ONLY, March 29, 2016, 11:19. INDICATIONS : Respiratory failure. MEDICAL HISTORY : Carcinoma, gastric. SURGICAL HISTORY : None. ENCOUNTER: Subsequent ACUITY: 2 weeks PAIN SCORE: Non-responsive. LOCATION: Bilateral chest FINDINGS: Tracheostomy, nasogastric tube and right central line are stable. Persistent consolidation at the lef t base with small effusion and hazy density at the right base. Cardiomediastinal contours are grossly stable. CONCLUSION: No significant change. Berlin Metzger MD on March 30, 2016 at 6:46 Board Certified Radiologist. This report was verified electronically.
[2016-03-30] MEDS: INSULIN ASPART SUPPLEMENTAL SCALE SQ SCH ×4 (07:00→21:00)
[2016-03-30] MEDS: CHLORHEXIDINE 0.12% (ORAL KIT) 15 ML CUP MT SCH ×2 (08:00→20:00)
[2016-03-30 08:55] LABS: BANDS 3 % (0-6); BASOPHILS 1 % (0-2); METAMYELOCYTES 1 % (0-1); POLYS (SEG NEUTROPHILS) 87 % (16-70); WBC DIFF SAMPLE 100
[2016-03-30 08:56] LABS: PLATELET ESTIMATE SMEAR NORMAL (NORMAL); PLATELET MORPHOLOGY NORMAL (NORMAL); SCAN/DIFF FINAL DIFF MANUAL; TOXIC GRANULATION 1+ (NORMAL)
[2016-03-30] MEDS: TIMOLOL MALEATE 0.5% OPHT SOLN 5 ML BTL RIGHT EYE SCH ×2 (09:00→20:35)
[2016-03-30] MEDS: BRIMONIDINE TARTRATE 0.15% OPHT SOLN 5 ML BTL RIGHT EYE SCH ×2 (09:00→20:35)
[2016-03-30] MEDS: VANCOMYCIN 1,500 MG/NS 500 ML IV SCH ×2 (09:25)
[2016-03-30] MEDS: FLUoxetine HCL 20 MG CAP PO SCH (09:26)
[2016-03-30] MEDS: LACTOBACILLUS ACIDOPHILUS TAB PO SCH ×2 (09:26→20:35)
[2016-03-30] MEDS: SODIUM CHLORIDE 0.9% FLUSH 5 ML FLUSH IVF SCH (09:26)
--- NOTE | 2016-03-30 09:52 | HHI.CCPN ---
Subjective Remarks/Hospital Course This is a 89-year-old male. Date of admission 03/18/2016. Date of consultation 03/21/2016. Past medical history includes bilateral cataracts, hypertension, disability, hypothyroidism, insomnia and history of gastric cancer status post partial gastrectomy and history of multiple inguinal hernia repairs. He presented to [facility] on 03/18 with acute onset abdominal pain. No bowel movements for several days. CT abdomen and pelvis revealed there is a small bowel position the right upper quadrant pelvis with a "twisting action likely incarceration. Hospital submitted patient general surgery was consulted. She had NG tube placed in cerebral abdominal exams and x-rays performed. Patient's abdominal pain persisted of nausea and vomiting. The patient eventually aborted with Dr. Cordon. Patient underwent exploratory laparoscopy/lyse adhesions with small bowel's resection secondary to ischemic jejunum loop an intestinal hernia. 2600 crystalloid. Minimal blood loss. 250 cc urine output. Patient has been on Levaquin/Flagyl since/5D UTI. This be continued. Patient is currently arousable on the ventilator. Multiple failures to extubate - Trach 03/29 03/30: Gas exchange improved. Objective Vital Signs Date Time Temp Pulse Resp B/P Pulse Ox O2 Delivery O2 Flow Rate FiO2 03/30/16 09:41 97 Ventilator 45 03/30/16 06:00 50 03/30/16 04:00 97.8 16 86/50 03/28/16 20:15 6.00 Intake and Output 03/29/16 03/29/16 03/30/16 08:00 16:00 00:00 Intake Total 1231 ml 810 ml 510 ml Output Total 500 ml 420 ml 500 ml Balance 731 ml 390 ml 10 ml Result Diagram: 03/30/16 0457 03/30/16 0457 Other Results Laboratory Tests Test 03/29/16 03/30/16 15:10 06:01 Blood Gas Puncture Site RT RADIAL RT RADIAL Blood Gas Patient Temperature 98.6 98.6 Blood Gas HCO3 25 mmol/L 26 mmol/L (22-26) (22-26) Blood Gas Base Excess 0.0 mmol/L 0.9 mmol/L (-2-2) (-2-2) Blood Gas Oxygen Saturation 97 % (90-100) 96 % (90-100) Arterial Blood pH 7.37 7.34 (7.380-7.420) (7.380-7.420) Arterial Blood Partial 44 mmHg (38-42) 49 mmHg (38-42) Pressure CO2 Arterial Blood Partial 125 mmHg 125 mmHg Pressure O2 (61-120) (61-120) Arterial Blood Oxygen Content 14.3 Vol % 13.9 Vol % (12.0-20.0) (12.0-20.0) Arterial Blood 1.2 % (0-4) 1.2 % (0-4) Carboxyhemoglobin Arterial Blood Methemoglobin 1.0 % (0-2) 1.1 % (0-2) Blood Gas Hemoglobin 10.4 G/DL 10.1 G/DL (12.0-16.0) (12.0-16.0) Oxygen Delivery Device VENTILATOR VENTILATOR Blood Gas Ventilator Setting CPAP 12/5 CPAP/PS10/PEEP5 Blood Gas Inspired Oxygen 45 % 45 % Imaging Last 24 hours Impressions Chest X-Ray 03/29/16 0600 Signed Impressions: Service Date/Time: Tuesday, March 29, 2016 04:21 - CONCLUSION: Interval extubation. Slight improvement in aeration. Berlin Metzger MD Objective Remarks GENERAL: 89-year-old male, critically ill currently tracheally intubated SKIN: Warm and dry. No rash HEAD: Atraumatic. Normocephalic. EYES: Right pupil is 8 mm and fixed. Left pupil is pinpoint and minimally reactive. NECK: Trach site clean. CARDIOVASCULAR: Regular rate and rhythm. S1, S2. No S4. Distant. No JVD. RESPIRATORY: Clear to auscultation. Breath sounds equal bilaterally. No wheezes. GASTROINTESTINAL: Abdomen soft, non-tender, nondistended. Midline abpad place without drainage. Hypoactive bowel sounds appreciated MUSCULOSKELETAL: Warm, well perfused. NEUROLOGICAL: Right pupil is fixed and dilated. Left pupil Reacts. Positive gag. Moves all 4 extremities to noxious stimuli. No obvious cranial nerve deficits. Motor grossly within normal limits Date of Insertion: Mar 21, 2016 Line: Central Venous Catheter Side: Right Location: Internal, Jugular A/P Assessment and Plan Respiratory failure - re-intubated due to complete opacification of left hemothorax 03/24 - Extubated 03/28 - Re-intubated 03/29 - and Tracheostomy placed - ACV 12/500/5/100 will wean to CPAP and TPs as tolerated - Ventilator bundle - Bronchodilator therapy if needed every 2 hours - Bronchoscopy performed 03/24 - improvement on CXR , no interval of change today -Tracheostomy MRSA PNA - Van per Pharmacy dosing Cataract and Macular degeneration - Currently Alphagan D 1 drop right eye twice a day. . - continue Timoptic xc 0.25% 1 drop right eye at night. Depression - Trazodone 50 at night resume when extubated Hypertension - hemodynamically stable - normotensive - monitor Atrial fibrilation - Amiodaron per cardiology Dyslipidemia - atorvastatin 40 mg resume when p.o. ok by GS Ischemic jejunum in internal hernia - Postop day #6 exploratory laparotomy - lysis of adhesions - small bowel resection - Vital at goal of 30 - tolerating well - adjust per Surgeon BPH - Patient is on dutasteride 0.5 mg at night for . Diabetes mellitus - Sliding scale insulin - Holding metformin while in the ICU Hypothyroidism - Levoxyl 112 g daily Access - Right IJ CVL day 6 Prophylaxis - GI - Protonix - DVT - SCD/pharmacological prophylaxis when okay with general surgery Level 3 Victoriano Melgar MD Mar 30, 2016 09:52
--- NOTE | 2016-03-30 10:18 | EKG ---
Date Performed: 03/29/2016 Time Performed: 16:19:00 PTAGE: 89 years EKG: SINUS BRADYCARDIA LEFT AXIS DEVIATION RIGHT BUNDLE BRANCH BLOCK Low limb lead voltage Angel red to prior tracing no significant change ABNORMAL ECG PREVIOUS TRACING : 03/28/2016 12.58 DOCTOR: Hussein Lauren Interpretating Date/Time 03/30/2016 10:18:03
--- NOTE | 2016-03-30 10:35 | HHI.PR ---
Subjective Subjective Notes RT in room; failed T piece trial today Son in room Objective Vitals/I&O Vital Signs Date Time Temp Pulse Resp B/P Pulse Ox O2 Delivery O2 Flow Rate FiO2 03/30/16 09:41 97 Ventilator 45 03/30/16 06:00 50 03/30/16 04:00 97.8 16 86/50 03/28/16 20:15 6.00 Labs Laboratory Tests Test 03/29/16 03/29/16 03/30/16 03/30/16 15:10 16:45 04:57 06:01 Blood Gas Puncture Site RT RADIAL RT RADIAL Blood Gas Patient Temperature 98.6 98.6 Blood Gas HCO3 25 26 Blood Gas Base Excess 0.0 0.9 Blood Gas Oxygen Saturation 97 96 Arterial Blood pH 7.37 7.34 Arterial Blood Partial 44 49 Pressure CO2 Arterial Blood Partial 125 125 Pressure O2 Arterial Blood Oxygen Content 14.3 13.9 Arterial Blood 1.2 1.2 Carboxyhemoglobin Arterial Blood Methemoglobin 1.0 1.1 Blood Gas Hemoglobin 10.4 10.1 Oxygen Delivery Device VENTILATOR VENTILATOR Blood Gas Ventilator Setting CPAP 12/5 CPAP/PS10/PEEP5 Blood Gas Inspired Oxygen 45 45 Vancomycin Level Trough 13.1 White Blood Count 19.8 Red Blood Count 3.25 Hemoglobin 9.5 Hematocrit 28.9 Mean Corpuscular Volume 88.8 Mean Corpuscular Hemoglobin 29.3 Mean Corpuscular Hemoglobin 33.0 Concent Red Cell Distribution Width 14.5 Platelet Count 302 Mean Platelet Volume 7.3 Neutrophils (%) (Auto) 89.5 Lymphocytes (%) (Auto) 3.0 Monocytes (%) (Auto) 5.7 Eosinophils (%) (Auto) 1.5 Basophils (%) (Auto) 0.3 Neutrophils # (Auto) 17.7 Lymphocytes # (Auto) 0.6 Monocytes # (Auto) 1.1 Eosinophils # (Auto) 0.3 Basophils # (Auto) 0.1 CBC Comment AUTO DIFF Differential Total Cells 100 Counted Neutrophils % (Manual) 87 Band Neutrophils % 3 Lymphocytes % 3 Monocytes % 5 Basophils % 1 Neutrophils # (Manual) 18.0 Metamyelocytes 1 Differential Comment FINAL DIFF MANUAL Toxic Granulation 1+ Platelet Estimate NORMAL Platelet Morphology Comment NORMAL Red Cell Morphology Comment NORMAL Sodium Level 139 Potassium Level 4.0 Chloride Level 104 Carbon Dioxide Level 28.0 Anion Gap 7 Blood Urea Nitrogen 15 Creatinine 0.60 Estimat Glomerular Filtration 127 Rate Random Glucose 253 Calcium Level 7.0 Protein Corrected Calcium 8.5 Phosphorus Level 1.9 Magnesium Level 1.8 Total Bilirubin 0.2 Aspartate Amino Transf 12 (AST/SGOT) Alanine Aminotransferase 22 (ALT/SGPT) Alkaline Phosphatase 70 Total Protein 4.4 Albumin 1.6 Date/Time Procedure Status Source Growth 03/28/16 10:00 Gram Stain - Final Resulted Wound Drainage 03/28/16 10:00 Wound Culture - Preliminary Resulted S. Aureus Mrsa Cardiovascular: Regular Lungs: Clear Abdomen: Other (midline incision; packing recently changed---wound clean with minimal drainage ) Extremities: Other (generalized edema ) A/P Assessment and Plan 89 year old male s/p resection small bowel -Failed T-piece trial today; back on full support ventilator settings via trach -+MRSA in wound culture---on vancomycin -Yeast in bronchial washings - will add diflucan -Proteus UTI - on levaquin -Tolerating TF; will add PO pain meds -Cardiology following -Son at bedside -Discussed with CAROLINA Schaefer Attending note Patient indicates minimal pain Wound clean without drainage Tolerating TF as noted above The exam, history, and the medical decision-making described in the above note were completed with the assistance of the mid-level provider. I reviewed and agree with the findings presented. I attest that I had a [id number] encounter with the patient on the same day, and personally performed and documented my assessment and findings in the medical record. Linda Mcleod Mar 30, 2016 10:35 Mahesh Cordon MD Mar 30, 2016 19:11
[2016-03-30] MEDS: MORPHINE SULFATE 4 MG/ML INJ IV PUSH PRN (12:02)
--- NOTE | 2016-03-30 13:55 | PD.CARD.PN ---
Subjective Subjective Remarks Awake. Denies pain, dyspnea, dizziness. Objective Medications IV Amiodarone on hold Vital Signs / I&O Vital Signs Date Time Temp Pulse Resp B/P Pulse Ox O2 Delivery O2 Flow Rate FiO2 03/30/16 12:11 100 45 03/30/16 10:00 59 03/30/16 09:41 97 Ventilator 45 03/30/16 09:38 97 45 03/30/16 08:00 97.8 57 14 119/56 100 03/30/16 08:00 57 03/30/16 06:00 50 03/30/16 04:16 98 45 03/30/16 04:00 97.8 56 16 86/50 100 03/30/16 04:00 56 03/30/16 02:00 56 03/30/16 01:02 100 45 03/30/16 00:00 97.8 54 16 86/50 100 03/30/16 00:00 54 03/29/16 22:15 100 45 03/29/16 22:00 59 03/29/16 20:17 100 45 03/29/16 20:00 57 03/29/16 20:00 97.3 59 17 116/53 100 03/29/16 18:00 58 03/29/16 16:00 97.3 59 17 116/53 100 03/29/16 16:00 57 03/29/16 15:55 98 45 03/29/16 14:00 56 I/O 03/29/16 03/29/16 03/29/16 03/30/16 03/30/16 03/30/16 07:00 15:00 23:00 07:00 15:00 23:00 Intake Total 1231 ml 810 ml 510 ml 702 ml Output Total 500 ml 420 ml 500 ml 950 ml 0 ml Balance 731 ml 390 ml 10 ml -248 ml 0 ml IV Total 894 ml 611 ml 302 ml Tube Feeding 277 ml 99 ml 390 ml 280 ml Tube Irrigant 60 ml Other 100 ml 120 ml 120 ml Output Urine Total 500 ml 420 ml 500 ml 950 ml Tube Feeding Residual Discard 0 ml # Bowel Movements 2 2 0 0 Physical Exam GENERAL: Well developed, well nourished. No acute distress. Intubated. HEENT: Jugular venous pressure is normal. CHEST: Lungs clear to auscultation anteriorly. CARDIAC: Regular rate and rhythm without S3, S4, or murmur. ABDOMEN: Soft. Bowel sounds absent. EXTREMITIES: SCD's in place. Laboratory Laboratory Tests Test 03/29/16 03/29/16 03/30/16 03/30/16 15:10 16:45 04:57 06:01 Blood Gas Puncture Site RT RADIAL RT RADIAL Blood Gas Patient Temperature 98.6 98.6 Blood Gas HCO3 25 mmol/L 26 mmol/L Blood Gas Base Excess 0.0 mmol/L 0.9 mmol/L Blood Gas Oxygen Saturation 97 % 96 % Arterial Blood pH 7.37 7.34 Arterial Blood Partial 44 mmHg 49 mmHg Pressure CO2 Arterial Blood Partial 125 mmHg 125 mmHg Pressure O2 Arterial Blood Oxygen Content 14.3 Vol % 13.9 Vol % Arterial Blood 1.2 % 1.2 % Carboxyhemoglobin Arterial Blood Methemoglobin 1.0 % 1.1 % Blood Gas Hemoglobin 10.4 G/DL 10.1 G/DL Oxygen Delivery Device VENTILATOR VENTILATOR Blood Gas Ventilator Setting CPAP 12/5 CPAP/PS10/PEEP5 Blood Gas Inspired Oxygen 45 % 45 % Vancomycin Level Trough 13.1 MCG/ML White Blood Count 19.8 TH/MM3 Red Blood Count 3.25 MIL/MM3 Hemoglobin 9.5 GM/DL Hematocrit 28.9 % Mean Corpuscular Volume 88.8 FL Mean Corpuscular Hemoglobin 29.3 PG Mean Corpuscular Hemoglobin 33.0 % Concent Red Cell Distribution Width 14.5 % Platelet Count 302 TH/MM3 Mean Platelet Volume 7.3 FL Neutrophils (%) (Auto) 89.5 % Lymphocytes (%) (Auto) 3.0 % Monocytes (%) (Auto) 5.7 % Eosinophils (%) (Auto) 1.5 % Basophils (%) (Auto) 0.3 % Neutrophils # (Auto) 17.7 TH/MM3 Lymphocytes # (Auto) 0.6 TH/MM3 Monocytes # (Auto) 1.1 TH/MM3 Eosinophils # (Auto) 0.3 TH/MM3 Basophils # (Auto) 0.1 TH/MM3 CBC Comment AUTO DIFF Differential Total Cells 100 Counted Neutrophils % (Manual) 87 % Band Neutrophils % 3 % Lymphocytes % 3 % Monocytes % 5 % Basophils % 1 % Neutrophils # (Manual) 18.0 TH/MM3 Metamyelocytes 1 % Differential Comment FINAL DIFF MANUAL Toxic Granulation 1+ Platelet Estimate NORMAL Platelet Morphology Comment NORMAL Red Cell Morphology Comment NORMAL Sodium Level 139 MEQ/L Potassium Level 4.0 MEQ/L Chloride Level 104 MEQ/L Carbon Dioxide Level 28.0 MEQ/L Anion Gap 7 MEQ/L Blood Urea Nitrogen 15 MG/DL Creatinine 0.60 MG/DL Estimat Glomerular Filtration 127 ML/MIN Rate Random Glucose 253 MG/DL Calcium Level 7.0 MG/DL Protein Corrected Calcium 8.5 MG/DL Phosphorus Level 1.9 MG/DL Magnesium Level 1.8 MG/DL Total Bilirubin 0.2 MG/DL Aspartate Amino Transf 12 U/L (AST/SGOT) Alanine Aminotransferase 22 U/L (ALT/SGPT) Alkaline Phosphatase 70 U/L Total Protein 4.4 GM/DL Albumin 1.6 GM/DL Assessment and Plan Problem List: (1) Paroxysmal atrial fibrillation Assessment and Plan: Appears to be in sinus bradycardia, occasional PACs, rare supraventricular triplets, HR 50's. Echo reportedly shows mildly reduced EF 45 % (appears closer to 50-55% on my review). Amiodarone on hold REC continue to monitor; start oral Amiodarone when possible when OK from surgery standpoint, rec aspirin suppository Code Status full code Discussed Condition With patient's son Mao Juarez MD Mar 30, 2016 13:55
[2016-03-30] MEDS: DEXT 5%-NACL 0.45% 1000 ML INJ 1,000 ML IV SCH (16:43)
[2016-03-30] MEDS ORDERED: ACETAMINOPHEN/HYDROcodone 325 MG/5 MG TAB PO PRN (19:15)
[2016-03-30] MEDS: FLUCONAZOLE 400 MG PREMIX BAG 200 ML IV SCH (20:35)
[2016-03-30] MEDS: FINASTERIDE 5 MG TAB PO SCH (20:35)
[2016-03-30] MEDS: ACETAMINOPHEN/HYDROcodone 325 MG/5 MG TAB PO PRN ×2 (20:40→23:21)
[2016-03-30] MEDS: LEVOFLOXACIN 500 MG PREMIX INJ 100 ML IV SCH (23:21)
[2016-03-31] VITALS (18 sets, daily range): BP systolic 89–135; BP diastolic 51–76; PULSE 55–74; RESP 13–24; TEMP 97.6–99.9; O2SAT 93–100
[2016-03-31] MEDS ORDERED: PHARMACY ORDERED LAB XX ONE (04:45)
[2016-03-31] MEDS: ACETAMINOPHEN/HYDROcodone 325 MG/5 MG TAB PO PRN ×2 (04:57→17:31)
[2016-03-31] MEDS: ISOSORBIDE MONONITRATE 20 MG TAB PO SCH (04:57)
[2016-03-31] MEDS: LEVOTHYROXINE SODIUM 112 MCG TAB PO SCH (04:57)
[2016-03-31] MEDS: VANCOMYCIN 1,500 MG/NS 500 ML IV SCH ×2 (04:58)
[2016-03-31] MEDS: INSULIN ASPART SUPPLEMENTAL SCALE SQ SCH ×4 (06:56→23:01)
[2016-03-31] MEDS: DEXT 5%-NACL 0.45% 1000 ML INJ 1,000 ML IV SCH (08:22)
[2016-03-31] MEDS: CHLORHEXIDINE 0.12% (ORAL KIT) 15 ML CUP MT SCH ×2 (08:24→20:54)
[2016-03-31] MEDS: SODIUM CHLORIDE 0.9% FLUSH 5 ML FLUSH IVF SCH (08:25)
[2016-03-31] MEDS: LACTOBACILLUS ACIDOPHILUS TAB PO SCH ×2 (08:28→20:59)
[2016-03-31] MEDS: FLUoxetine HCL 20 MG CAP PO SCH (08:28)
--- NOTE | 2016-03-31 08:39 | PD.CARD.PN ---
Subjective Subjective Remarks Intubated. Sedated. Objective Medications Item Value Date Time Amiodarone HCl 400 mg 03/31/16 0900 (Cordarone) DAILY/PO 03/31/16 0828 Isosorbide 30 mg 03/19/16 0700 Mononitrate DAILY@07/PO (Ismo) Vital Signs / I&O Vital Signs Date Time Temp Pulse Resp B/P Pulse Ox O2 Delivery O2 Flow Rate FiO2 03/31/16 07:53 99 40 03/31/16 06:00 55 03/31/16 05:57 21 03/31/16 04:38 97 40 03/31/16 04:00 99.6 57 13 105/51 99 03/31/16 04:00 57 03/31/16 02:00 57 03/31/16 01:00 99 40 03/31/16 00:00 57 03/31/16 00:00 99.9 56 13 89/53 99 03/30/16 22:00 57 03/30/16 21:10 98 40 03/30/16 20:00 60 03/30/16 20:00 100.3 60 22 98/54 98 03/30/16 18:00 60 03/30/16 16:36 100 40 03/30/16 16:00 56 03/30/16 16:00 98.8 56 13 87/48 100 03/30/16 14:00 56 03/30/16 12:11 100 45 03/30/16 12:00 55 03/30/16 12:00 98.0 55 16 101/55 100 03/30/16 10:00 59 03/30/16 09:41 97 Ventilator 45 03/30/16 09:38 97 45 I/O 03/30/16 03/30/16 03/30/16 03/31/16 03/31/16 03/31/16 07:00 15:00 23:00 07:00 15:00 23:00 Intake Total 702 ml 1250 ml 1189 ml 712 ml Output Total 950 ml 350 ml 350 ml 250 ml Balance -248 ml 900 ml 839 ml 462 ml IV Total 302 ml 819 ml 607 ml 463 ml Tube Feeding 280 ml 331 ml 462 ml 249 ml Other 120 ml 100 ml 120 ml Output Urine Total 950 ml 350 ml 350 ml 250 ml Tube Feeding Residual Discard 0 ml # Bowel Movements 0 0 0 0 Physical Exam GENERAL: Well developed, well nourished. No acute distress. Intubated. HEENT: Jugular venous pressure is normal. CHEST: Lungs clear to auscultation anteriorly. CARDIAC: Regular rate and rhythm without S3, S4, or murmur. ABDOMEN: Soft. Bowel sounds absent. EXTREMITIES: SCD's in place. Laboratory Laboratory Tests Test 03/31/16 04:30 Creatinine 0.66 MG/DL Estimat Glomerular Filtration 114 ML/MIN Rate Vancomycin Level Trough 12.5 MCG/ML Assessment and Plan Problem List: (1) Paroxysmal atrial fibrillation Assessment and Plan: Appears to be in sinus bradycardia, occasional PACs, rare supraventricular triplets, occasional junctional escape beats, HR 50's. Echo reportedly shows mildly reduced EF 45% (appears closer to 50-55% on my review). REC continue oral Amiodarone, drop dose to 200 mg qd, check EKG periodically when OK from surgery standpoint, rec aspirin suppository will f/u periodically Code Status full code Mao Juarez MD Mar 31, 2016 08:39
[2016-03-31] MEDS: TIMOLOL MALEATE 0.5% OPHT SOLN 5 ML BTL RIGHT EYE SCH ×2 (08:41→21:20)
[2016-03-31] MEDS: BRIMONIDINE TARTRATE 0.15% OPHT SOLN 5 ML BTL RIGHT EYE SCH ×2 (08:42→23:15)
[2016-03-31] MEDS ORDERED: AMIODARONE 200 MG TAB PO SCH (09:00)
--- NOTE | 2016-03-31 11:17 | HHI.PR ---
Subjective Subjective Notes Resting in bed Able to answer yes and no questions C/o no pain Objective Vitals/I&O Vital Signs Date Time Temp Pulse Resp B/P Pulse Ox O2 Delivery O2 Flow Rate FiO2 03/31/16 10:00 57 03/31/16 08:00 98.7 14 112/54 100 03/31/16 07:53 40 03/30/16 09:41 Ventilator 03/28/16 20:15 6.00 Labs Laboratory Tests Test 03/31/16 04:30 Creatinine 0.66 Estimat Glomerular Filtration 114 Rate Vancomycin Level Trough 12.5 Date/Time Procedure Status Source Growth 03/28/16 10:00 Gram Stain - Final Complete Wound Drainage 03/28/16 10:00 Wound Culture - Final Complete S. Aureus Mrsa Cardiovascular: Regular Lungs: Clear Abdomen: Other (incision c/d/i---packing removed and no drainage) Extremities: Other (generalized edema ) Narrative Exam Milk grimace with palpation of abdomen A/P Assessment and Plan 89 year old male s/p resection small bowel -+MRSA in wound culture---on IV vancomycin -Tolerating TF at 50cc/hr -Vent per CCM -Pain controlled with Lortab -Cardiology following -Discussed with CAROLINA Rivera Attending Note Patient awake and responsive Tolerating TF Wound opened slightly further due to small amt drainage; will change to Daikens solution Minimal drainage Failed t-piece again Will have pt. go to [facility] in [place] (closer to son) next week if he is stable The exam, history, and the medical decision-making described in the above note were completed with the assistance of the mid-level provider. I reviewed and agree with the findings presented. I attest that I had a [id number] encounter with the patient on the same day, and personally performed and documented my assessment and findings in the medical record. Linda Mcleod Mar 31, 2016 11:17 Mahesh Cordon MD Mar 31, 2016 18:06
[2016-03-31] MEDS: FLUCONAZOLE 400 MG PREMIX BAG 200 ML IV SCH (20:58)
[2016-03-31] MEDS: FINASTERIDE 5 MG TAB PO SCH (20:59)
[2016-03-31] MEDS: LEVOFLOXACIN 500 MG PREMIX INJ 100 ML IV SCH (23:01)
[2016-03-31] MEDS: SODIUM HYPOCHLORITE 0.25% 500 ML BTL TOPICAL SCH (23:01)
[2016-03-31] MEDS: VANCOMYCIN INJ 1,750 MG in SODIUM CHLORID 0.9% 500 ML INJ 500 ML IV SCH (23:01)
[2016-04-01] VITALS (18 sets, daily range): BP systolic 119–159; BP diastolic 56–76; PULSE 57–66; RESP 16–19; TEMP 97.8–98.7; O2SAT 94–100
[2016-04-01] MEDS: LEVOTHYROXINE SODIUM 112 MCG TAB PO SCH (05:12)
[2016-04-01] MEDS: FLUoxetine HCL 20 MG CAP PO SCH (08:00)
[2016-04-01] MEDS: INSULIN ASPART SUPPLEMENTAL SCALE SQ SCH ×4 (08:00→22:19)
[2016-04-01] MEDS: LACTOBACILLUS ACIDOPHILUS TAB PO SCH ×2 (08:00→21:04)
[2016-04-01] MEDS: TIMOLOL MALEATE 0.5% OPHT SOLN 5 ML BTL RIGHT EYE SCH ×2 (08:02→21:00)
[2016-04-01] MEDS: BRIMONIDINE TARTRATE 0.15% OPHT SOLN 5 ML BTL RIGHT EYE SCH ×2 (08:02→21:00)
[2016-04-01] MEDS: CHLORHEXIDINE 0.12% (ORAL KIT) 15 ML CUP MT SCH ×2 (08:02→20:00)
[2016-04-01] MEDS: SODIUM CHLORIDE 0.9% FLUSH 5 ML FLUSH IVF SCH (08:02)
[2016-04-01] MEDS: SODIUM HYPOCHLORITE 0.25% 500 ML BTL TOPICAL SCH ×2 (08:02→21:00)
[2016-04-01] MEDS: ISOSORBIDE MONONITRATE 20 MG TAB PO SCH (08:04)
--- NOTE | 2016-04-01 08:19 | MP ---
cc: MAHESH CORDON M.D. DATE OF SURGERY 03/29/2016 PROCEDURE Percutaneous tracheostomy placement. PREOPERATIVE DIAGNOSIS Ventilator failure with need for tracheostomy. POSTOPERATIVE DIAGNOSIS Ventilator failure with need for tracheostomy. ANESTHESIA IV sedation SURGEON Mahesh Cordon MD DIRECTOR [employer] Eric Mcintosh MD COMPLICATIONS None DRAINS None SPECIMEN None PROCEDURE IN DETAIL The patient was identified and placed on his bed in the supine position with the neck slightly hyperextended with a towel behind the shoulders. Dr. Mcintosh had previously intubated the patient. Bronchoscopy was performed to suction the patient. At this point, the neck was sterilely prepped and draped. Time-out was taken can to confirm the correct patient, site, and procedure to be performed. Skin and subcutaneous tissue was infiltrated with local anesthetic after the patient was given sedation. An incision was made in the neck two fingerbreadths above the sternal notch. An 18 gauge needle with an angiocatheter was passed into the trachea and seen under bronchoscopic visualization to enter the trachea. The needle was withdrawn and a guidewire passed down the angiocatheter. The guidewire was seen to course toward the kristel. The angiocatheter was removed. A tracheal punch was passed over the guidewire and seen to pass into the trachea. This was removed and a blue rhino was inserted with the white catheter guide over the guidewire first. This was then removed leaving the white catheter guide behind. A #8 percutaneous tracheostomy with a 28-Tajik tracheostomy guide was placed over the green guidewire and white catheter guide. This entered the trachea and was seen under bronchoscopy. The green guidewire, white catheter guide and tracheostomy guide were all removed. Dr. Mcintosh then confirmed the position of the tracheostomy tube in the trachea with the bronchoscope. The obturator was then placed and the circuit switched over to the tracheostomy tube. The balloon was inflated and the tracheostomy was secured in place with four 2-0 Prolene sutures. A tracheostomy dressing was applied. The patient tolerated the procedure well with saturation of 100% the entire time. Stat chest x-ray was obtained which demonstrated no evidence of pneumothorax. The patient tolerated the procedure well. MD VALERY Diaz/PRITESH /8:36 PM /8:14 AM
[2016-04-01] MEDS ORDERED: AMIODARONE 200 MG TAB PO SCH (09:00)
[2016-04-01] MEDS: DEXT 5%-NACL 0.45% 1000 ML INJ 1,000 ML IV SCH (10:32)
--- NOTE | 2016-04-01 10:48 | HHI.PR ---
Subjective Subjective Notes CAROLINA Rivera informed me that this morning Mr. Spangler had apnea event this AM after turning him on his side Stable on my visit On T-piece with eyes open Objective Vitals/I&O Vital Signs Date Time Temp Pulse Resp B/P Pulse Ox O2 Delivery O2 Flow Rate FiO2 04/01/16 10:20 94 60 04/01/16 10:00 66 04/01/16 08:00 98.7 19 126/72 03/30/16 09:41 Ventilator 03/28/16 20:15 6.00 Labs Date/Time Procedure Status Source Growth 03/28/16 10:00 Gram Stain - Final Complete Wound Drainage 03/28/16 10:00 Wound Culture - Final Complete S. Aureus Mrsa Cardiovascular: Regular Lungs: Clear Abdomen: Other (midline incision with open area---minimal drainage; packing ) Extremities: Other (generalized edema ) Narrative Exam Mild grimace with palpation of abdomen A/P Assessment and Plan 89 year old male s/p resection small bowel -+MRSA in wound culture---on IV vancomycin -Tolerating TF at 50cc/hr -Vent per CCM -Pain controlled with Lortab -Cardiology following ---may need Holter monitor -Discussed with CAROLINA Rivera Attending Note Wound is clean with no drainage Vent no change Likely transfer to [facility] in [place] next week only if no major issues The exam, history, and the medical decision-making described in the above note were completed with the assistance of the mid-level provider. I reviewed and agree with the findings presented. I attest that I had a [id number] encounter with the patient on the same day, and personally performed and documented my assessment and findings in the medical record. Linda Mcleod Apr 01, 2016 10:48 Mahesh Cordon MD Apr 01, 2016 16:48
[2016-04-01] MEDS: ACETAMINOPHEN/HYDROcodone 325 MG/5 MG TAB PO PRN ×2 (12:19→22:19)
--- NOTE | 2016-04-01 14:43 | HHI.CCPN ---
Subjective Remarks/Hospital Course Note for 03/31/16 This is a 89-year-old male. Date of admission 03/18/2016. Date of consultation 03/21/2016. Past medical history includes bilateral cataracts, hypertension, disability, hypothyroidism, insomnia and history of gastric cancer status post partial gastrectomy and history of multiple inguinal hernia repairs. He presented to [facility] on 03/18 with acute onset abdominal pain. No bowel movements for several days. CT abdomen and pelvis revealed there is a small bowel position the right upper quadrant pelvis with a "twisting action likely incarceration. Hospital submitted patient general surgery was consulted. She had NG tube placed in cerebral abdominal exams and x-rays performed. Patient's abdominal pain persisted of nausea and vomiting. The patient eventually aborted with Dr. Cordon. Patient underwent exploratory laparoscopy/lyse adhesions with small bowel's resection secondary to ischemic jejunum loop an intestinal hernia. 2600 crystalloid. Minimal blood loss. 250 cc urine output. Patient has been on Levaquin/Flagyl since/5D UTI. This be continued. Patient is currently arousable on the ventilator. Multiple failures to extubate - Trach 03/29 03/30: Gas exchange improved. 03/31: Improved hemodynamics. Retaining fluid. Objective Vital Signs Date Time Temp Pulse Resp B/P Pulse Ox O2 Delivery O2 Flow Rate FiO2 04/01/16 14:00 59 04/01/16 12:56 98 60 04/01/16 12:00 97.8 19 130/61 03/30/16 09:41 Ventilator 03/28/16 20:15 6.00 Intake and Output 03/31/16 03/31/16 04/01/16 08:00 16:00 00:00 Intake Total 712 ml 949 ml 770 ml Output Total 250 ml 400 ml 350 ml Balance 462 ml 549 ml 420 ml Result Diagram: 03/30/16 0457 03/31/16 0430 Imaging Last 24 hours Impressions Chest X-Ray 03/29/16 0600 Signed Impressions: Service Date/Time: Tuesday, March 29, 2016 04:21 - CONCLUSION: Interval extubation. Slight improvement in aeration. Berlin Metzger MD Objective Remarks GENERAL: 89-year-old male, critically ill currently tracheally intubated SKIN: Warm and dry. No rash HEAD: Atraumatic. Normocephalic. EYES: Right pupil is 8 mm and fixed. NECK: Trach site clean. CARDIOVASCULAR: Regular rate and rhythm. S1, S2. No S4. Distant. No JVD. RESPIRATORY: Clear to auscultation. Breath sounds equal bilaterally. No wheezes. GASTROINTESTINAL: Abdomen soft, non-tender, nondistended. Midline place without drainage. Active bowel sounds. MUSCULOSKELETAL: Warm, well perfused. NEUROLOGICAL: Right pupil is fixed and dilated. Left pupil Reacts. Positive gag. Moves all 4 extremities to noxious stimuli. No obvious cranial nerve deficits. Motor grossly within normal limits Date of Insertion: Mar 21, 2016 Line: Central Venous Catheter Side: Right Location: Internal, Jugular A/P Assessment and Plan Respiratory failure - re-intubated due to complete opacification of left hemothorax 03/24 - Extubated 03/28 - Re-intubated 03/29 - and Tracheostomy placed - ACV 12/500/5/100 will wean to CPAP and TPs as tolerated - Ventilator bundle - Bronchodilator therapy if needed every 2 hours - Bronchoscopy performed 03/24 - improvement on CXR , no interval of change today -Tracheostomy MRSA PNA - Van per Pharmacy dosing Cataract and Macular degeneration - Currently Alphagan D 1 drop right eye twice a day. . - continue Timoptic xc 0.25% 1 drop right eye at night. Depression - Trazodone 50 at night resume when extubated Hypertension - hemodynamically stable - normotensive - monitor Atrial fibrilation - Amiodaron per cardiology Dyslipidemia - atorvastatin 40 mg resume when p.o. ok by GS Ischemic jejunum in internal hernia - s/p exploratory laparotomy - lysis of adhesions - small bowel resection - Vital at goal of 30 - tolerating well - adjust per Surgeon BPH - Patient is on dutasteride 0.5 mg at night for . Diabetes mellitus - Sliding scale insulin - Holding metformin while in the ICU Hypothyroidism - Levoxyl 112 g daily Access - Right IJ CVL Prophylaxis - GI - Protonix - DVT - SCD/pharmacological prophylaxis when okay with general surgery Level 3 Victoriano Melgar MD Apr 01, 2016 14:43
--- NOTE | 2016-04-01 14:47 | HHI.CCPN ---
Subjective Remarks/Hospital Course Note for 04/01/16 This is a 89-year-old male. Date of admission 03/18/2016. Date of consultation 03/21/2016. Past medical history includes bilateral cataracts, hypertension, disability, hypothyroidism, insomnia and history of gastric cancer status post partial gastrectomy and history of multiple inguinal hernia repairs. He presented to [facility] on 03/18 with acute onset abdominal pain. No bowel movements for several days. CT abdomen and pelvis revealed there is a small bowel position the right upper quadrant pelvis with a "twisting action likely incarceration. Hospital submitted patient general surgery was consulted. She had NG tube placed in cerebral abdominal exams and x-rays performed. Patient's abdominal pain persisted of nausea and vomiting. The patient eventually aborted with Dr. Cordon. Patient underwent exploratory laparoscopy/lyse adhesions with small bowel's resection secondary to ischemic jejunum loop an intestinal hernia. 2600 crystalloid. Minimal blood loss. 250 cc urine output. Patient has been on Levaquin/Flagyl since/5D UTI. This be continued. Patient is currently arousable on the ventilator. Multiple failures to extubate - Trach 03/29 03/30: Gas exchange improved. 03/31: Improved hemodynamics. Retaining fluid. 04/01: Start Lasix. Investigate asystolic episodes. Objective Vital Signs Date Time Temp Pulse Resp B/P Pulse Ox O2 Delivery O2 Flow Rate FiO2 04/01/16 14:00 59 04/01/16 12:56 98 60 04/01/16 12:00 97.8 19 130/61 03/30/16 09:41 Ventilator 03/28/16 20:15 6.00 Intake and Output 03/31/16 03/31/16 04/01/16 08:00 16:00 00:00 Intake Total 712 ml 949 ml 770 ml Output Total 250 ml 400 ml 350 ml Balance 462 ml 549 ml 420 ml Result Diagram: 03/30/16 8857 03/31/16 0430 Imaging Last 24 hours Impressions Chest X-Ray 03/29/16 0600 Signed Impressions: Service Date/Time: Tuesday, March 29, 2016 04:21 - CONCLUSION: Interval extubation. Slight improvement in aeration. Berlin Metzger MD Objective Remarks GENERAL: 89-year-old male, critically ill currently tracheally intubated SKIN: Warm and dry. No rash HEAD: Atraumatic. Normocephalic. NECK: Trach site clean. CARDIOVASCULAR: Regular rate and rhythm. S1, S2. No S4. Distant. No JVD. RESPIRATORY: Clear to auscultation. Breath sounds equal bilaterally. No wheezes. GASTROINTESTINAL: Abdomen soft, non-tender, nondistended. Midline place without drainage. Active bowel sounds. MUSCULOSKELETAL: Warm, well perfused. ++ edema. NEUROLOGICAL: Right pupil is fixed and dilated. Left pupil Reacts. Moves all 4 extremities to noxious stimuli. No obvious cranial nerve deficits. Motor grossly within normal limits Date of Insertion: Mar 21, 2016 Line: Central Venous Catheter Side: Right Location: Internal, Jugular A/P Assessment and Plan Respiratory failure - re-intubated due to complete opacification of left hemothorax 03/24 - Extubated 03/28 - Re-intubated 03/29 - and Tracheostomy placed - ACV 12/500/5/100 will wean to CPAP and TPs as tolerated -Tracheostomy MRSA PNA - Van per Pharmacy dosing Cataract and Macular degeneration - Currently Alphagan D 1 drop right eye twice a day. . - continue Timoptic xc 0.25% 1 drop right eye at night. Depression - Trazodone 50 at night resume when extubated Hypertension - hemodynamically stable - normotensive - monitor Atrial fibrilation - Amiodarone per cardiology Dyslipidemia - atorvastatin 40 mg resume when p.o. ok by GS Ischemic jejunum in internal hernia - s/p exploratory laparotomy - lysis of adhesions - small bowel resection - Vital at goal of 30 - tolerating well - adjust per Surgeon BPH - Patient is on dutasteride 0.5 mg at night for . Diabetes mellitus - Sliding scale insulin - Holding metformin while in the ICU Hypothyroidism - Levoxyl 112 g daily Access - Right IJ CVL Prophylaxis - GI - Protonix - DVT - SCD/pharmacological prophylaxis when okay with general surgery Overall impression: Start gingerly diuresis. Victoriano Melgar MD Apr 01, 2016 14:47
[2016-04-01] MEDS: FUROSEMIDE 40 MG/4 ML VIAL IV PUSH SCH (14:51)
[2016-04-01] MEDS: VANCOMYCIN INJ 1,750 MG in SODIUM CHLORID 0.9% 500 ML INJ 500 ML IV SCH (17:06)
--- NOTE | 2016-04-01 17:35 | PD.CARD.PN ---
Subjective Subjective Remarks Awake. Resting comfortably. Seems to deny syncope, CP, dyspnea, palpitations. Possibly mild lightheadedness today. Objective Medications Item Value Date Time Heparin Sodium 5,000 units 04/01/16 2100 (Porcine) Q12HR/SQ (Heparin Inj) Furosemide 40 mg 04/01/16 1500 (Lasix Inj) DAILY/IV PUSH 04/01/16 1451 Amiodarone HCl 200 mg 04/01/16 0900 (Cordarone) DAILY/PO 04/01/16 0801 Isosorbide 30 mg 03/19/16 0700 Mononitrate DAILY@07/PO 04/01/16 0804 (Ismo) Vital Signs / I&O Vital Signs Date Time Temp Pulse Resp B/P Pulse Ox O2 Delivery O2 Flow Rate FiO2 04/01/16 16:00 59 04/01/16 16:00 98.0 59 16 119/56 98 04/01/16 14:00 59 04/01/16 13:19 20 04/01/16 12:56 98 60 04/01/16 12:00 60 04/01/16 12:00 97.8 59 19 130/61 99 04/01/16 10:20 94 60 04/01/16 10:00 66 04/01/16 08:00 98.7 62 19 126/72 98 04/01/16 08:00 60 04/01/16 06:00 60 04/01/16 04:01 98 40 04/01/16 04:00 57 04/01/16 04:00 98.1 57 17 127/71 98 04/01/16 04:00 57 04/01/16 02:00 57 04/01/16 01:26 100 40 04/01/16 00:00 57 04/01/16 00:00 98.1 57 18 159/76 99 03/31/16 22:00 56 03/31/16 20:51 100 40 03/31/16 20:00 97.6 59 17 118/56 98 03/31/16 20:00 59 03/31/16 18:00 60 I/O 03/31/16 03/31/16 03/31/16 04/01/16 04/01/16 04/01/16 07:00 15:00 23:00 07:00 15:00 23:00 Intake Total 712 ml 949 ml 770 ml 1585 ml 658 ml Output Total 250 ml 400 ml 350 ml 450 ml 550 ml Balance 462 ml 549 ml 420 ml 1135 ml 108 ml Intake Oral 0 ml 0 ml IV Total 463 ml 610 ml 350 ml 1080 ml 338 ml Tube Feeding 249 ml 319 ml 300 ml 325 ml 290 ml Tube Irrigant 20 ml 120 ml 180 ml 30 ml Output Urine Total 250 ml 400 ml 350 ml 450 ml 550 ml # Bowel Movements 0 0 0 0 0 Physical Exam GENERAL: Well developed, well nourished. No acute distress. Intubated. HEENT: Jugular venous pressure is normal. CHEST: Lungs clear to auscultation anteriorly. CARDIAC: Regular rate and rhythm without S3, S4, or murmur. ABDOMEN: Soft. Bowel sounds absent. EXTREMITIES: SCD's in place. No pretibial edema. Assessment and Plan Problem List: (1) Paroxysmal atrial fibrillation Assessment and Plan: Appears to be in sinus bradycardia, occasional PACs. Prolonged pause on monitoring today reportedly up to 10 seconds, likely induced by Amiodarone, hard to rule out vasovagal component. REC stop Amiodarone, external pacing pads for next 72 hours Code Status full code Discussed Condition With patient Mao Juarez MD Apr 01, 2016 17:35
[2016-04-01 19:08] LABS: BICARBONATE 34.8 MEQ/L (21.0-32.0); MAGNESIUM 1.8 MG/DL (1.5-2.5); POTASSIUM 3.9 MEQ/L (3.5-5.1)
[2016-04-01 19:21] LABS: CALCIUM-PROTEIN CORRECTED 8.5 MG/DL (8.5-10.1)
[2016-04-01] MEDS: FINASTERIDE 5 MG TAB PO SCH (21:00)
[2016-04-01] MEDS: FAMOTIDINE 20 MG TAB PO SCH (21:04)
[2016-04-01] MEDS: FLUCONAZOLE 400 MG PREMIX BAG 200 ML IV SCH (21:04)
[2016-04-01] MEDS: HEPARIN SODIUM - SQ 10,000 UNITS/ML VIAL SQ SCH (21:06)
--- NOTE | 2016-04-01 21:19 | EKG ---
Date Performed: 03/31/2016 Time Performed: 13:39:33 PTAGE: 89 years EKG: Sinus rhythm BORDERLINE LEFT AXIS DEVIATION RIGHT BUNDLE BRANCH BLOCK ABNORMAL ECG PREVIOUS TRACING : 03/29/2016 16.19 DOCTOR: Edgardo Pitts Interpretating Date/Time 04/01/2016 21:09:39
[2016-04-01] MEDS: LEVOFLOXACIN 500 MG PREMIX INJ 100 ML IV SCH (22:18)
[2016-04-02] VITALS (18 sets, daily range): BP systolic 93–123; BP diastolic 51–61; PULSE 52–58; RESP 11–19; TEMP 97.7–98.1; O2SAT 97–100
[2016-04-02] MEDS: ISOSORBIDE MONONITRATE 20 MG TAB PO SCH (06:20)
[2016-04-02] MEDS: LEVOTHYROXINE SODIUM 112 MCG TAB PO SCH (06:20)
[2016-04-02 07:09] LABS: BICARBONATE 34.1 MEQ/L (21.0-32.0); POTASSIUM 4.1 MEQ/L (3.5-5.1)
[2016-04-02 07:20] LABS: CALCIUM-PROTEIN CORRECTED 8.5 MG/DL (8.5-10.1)
[2016-04-02] MEDS: INSULIN ASPART SUPPLEMENTAL SCALE SQ SCH ×4 (07:41→21:00)
--- NOTE | 2016-04-02 07:49 | PD.CARD.PN ---
Subjective Subjective Remarks Intubated. Seems to deny dyspnea, pain, dizziness. Objective Medications Item Value Date Time Heparin Sodium 5,000 units 04/01/16 2100 (Porcine) Q12HR/SQ 04/01/166 (Heparin Inj) Furosemide 40 mg 04/01/16 1500 (Lasix Inj) DAILY/IV PUSH 04/01/16 1451 Vital Signs / I&O Vital Signs Date Time Temp Pulse Resp B/P Pulse Ox O2 Delivery O2 Flow Rate FiO2 04/02/16 07:43 99 50 04/02/16 07:20 22 04/02/16 06:00 58 04/02/16 04:00 98.0 57 13 120/61 100 04/02/16 04:00 53 04/02/16 03:26 99 50 04/02/16 02:00 57 04/02/16 00:38 100 50 04/02/16 00:00 98.0 57 13 120/61 100 04/02/16 00:00 57 04/01/16 23:19 17 04/01/16 22:00 59 04/01/16 20:00 98.2 59 17 120/58 100 04/01/16 20:00 59 04/01/16 19:31 99 50 04/01/16 18:00 60 04/01/16 17:43 99 50 04/01/16 16:00 59 04/01/16 16:00 98.0 59 16 119/56 98 04/01/16 14:00 59 04/01/16 12:56 98 60 04/01/16 12:00 60 04/01/16 12:00 97.8 59 19 130/61 99 04/01/16 10:20 94 60 04/01/16 10:00 66 04/01/16 08:00 98.7 62 19 126/72 98 04/01/16 08:00 60 I/O 04/01/16 04/01/16 04/01/16 04/02/16 04/02/16 04/02/16 07:00 15:00 23:00 07:00 15:00 23:00 Intake Total 1585 ml 658 ml 1128 ml 826 ml Output Total 450 ml 550 ml 2500 ml 650 ml Balance 1135 ml 108 ml -1372 ml 176 ml Intake Oral 0 ml IV Total 1080 ml 338 ml 661 ml 326 ml Tube Feeding 325 ml 290 ml 347 ml 380 ml Tube Irrigant 180 ml 30 ml 120 ml 120 ml Output Urine Total 450 ml 550 ml 2500 ml 650 ml # Bowel Movements 0 0 0 0 Physical Exam GENERAL: Well developed, well nourished. No acute distress. Intubated. HEENT: Jugular venous pressure is normal. CHEST: Lungs clear to auscultation anteriorly. CARDIAC: Regular rate and rhythm without S3, S4, or murmur. ABDOMEN: Soft. Bowel sounds absent. EXTREMITIES: SCD's in place. No pretibial edema. Laboratory Laboratory Tests Test 04/01/16 04/02/16 18:00 06:00 Sodium Level 136 MEQ/L 137 MEQ/L Potassium Level 3.9 MEQ/L 4.1 MEQ/L Chloride Level 98 MEQ/L 97 MEQ/L Carbon Dioxide Level 34.8 MEQ/L 34.1 MEQ/L Anion Gap 3 MEQ/L 6 MEQ/L Blood Urea Nitrogen 13 MG/DL 14 MG/DL Creatinine 0.60 MG/DL 0.61 MG/DL Estimat Glomerular Filtration 127 ML/MIN 124 ML/MIN Rate Random Glucose 186 MG/DL 213 MG/DL Calcium Level 7.2 MG/DL 7.2 MG/DL Protein Corrected Calcium 8.5 MG/DL 8.5 MG/DL Phosphorus Level 2.2 MG/DL Magnesium Level 1.8 MG/DL Total Creatine Kinase 21 U/L Troponin I 0.02 NG/ML B-Type Natriuretic Peptide 312 PG/ML Total Protein 4.8 GM/DL 4.8 GM/DL Assessment and Plan Problem List: (1) Paroxysmal atrial fibrillation Assessment and Plan: Appears to be in sinus bradycardia, occasional PACs. Prolonged pause on monitoring two nights ago when turned in bed. Brief bradycardia into 30's again this morning when turned in bed. Possibly still residual effects from Amiodarone, which has been discontinued. Overall does not appear to be vasovagal episodes. EF by echo normal by my review. REC continue external pacing pads coverage to see patient PRN over the weekend Code Status full code Discussed Condition With nurse Mao Juarez MD Apr 02, 2016 07:49
[2016-04-02] MEDS: CHLORHEXIDINE 0.12% (ORAL KIT) 15 ML CUP MT SCH ×2 (08:00→20:00)
[2016-04-02] MEDS: FUROSEMIDE 40 MG/4 ML VIAL IV PUSH SCH (09:30)
[2016-04-02] MEDS: LACTOBACILLUS ACIDOPHILUS TAB PO SCH ×2 (09:31→21:43)
[2016-04-02] MEDS: HEPARIN SODIUM - SQ 10,000 UNITS/ML VIAL SQ SCH ×2 (09:31→21:43)
[2016-04-02] MEDS: FLUoxetine HCL 20 MG CAP PO SCH (09:31)
[2016-04-02] MEDS: FAMOTIDINE 20 MG TAB PO SCH ×2 (09:31→21:43)
[2016-04-02] MEDS: SODIUM HYPOCHLORITE 0.25% 500 ML BTL TOPICAL SCH ×2 (09:32→21:00)
[2016-04-02] MEDS: TIMOLOL MALEATE 0.5% OPHT SOLN 5 ML BTL RIGHT EYE SCH ×2 (09:32→21:00)
[2016-04-02] MEDS: BRIMONIDINE TARTRATE 0.15% OPHT SOLN 5 ML BTL RIGHT EYE SCH ×2 (09:32→21:00)
[2016-04-02] MEDS: SODIUM CHLORIDE 0.9% FLUSH 5 ML FLUSH IVF SCH (09:32)
[2016-04-02] MEDS: VANCOMYCIN INJ 1,750 MG in SODIUM CHLORID 0.9% 500 ML INJ 500 ML IV SCH (10:23)
--- NOTE | 2016-04-02 11:34 | HHI.CCPN ---
Subjective Remarks/Hospital Course This is a 89-year-old male. Date of admission 03/18/2016. Date of consultation 03/21/2016. Past medical history includes bilateral cataracts, hypertension, disability, hypothyroidism, insomnia and history of gastric cancer status post partial gastrectomy and history of multiple inguinal hernia repairs. He presented to [facility] on 03/18 with acute onset abdominal pain. No bowel movements for several days. CT abdomen and pelvis revealed there is a small bowel position the right upper quadrant pelvis with a "twisting action likely incarceration. Hospital submitted patient general surgery was consulted. She had NG tube placed in cerebral abdominal exams and x-rays performed. Patient's abdominal pain persisted of nausea and vomiting. The patient eventually aborted with Dr. Cordon. Patient underwent exploratory laparoscopy/lyse adhesions with small bowel's resection secondary to ischemic jejunum loop an intestinal hernia. 2600 crystalloid. Minimal blood loss. 250 cc urine output. Patient has been on Levaquin/Flagyl since/5D UTI. This be continued. Patient is currently arousable on the ventilator. Multiple failures to extubate - Trach 03/29 03/30: Gas exchange improved. 03/31: Improved hemodynamics. Retaining fluid. 04/01: Start Lasix. Investigate asystolic episodes. 04/02: Diuretics increased, follow lytes. CVL 12 days, replace. Reculture sputum , d/c vanc if Staph minimal. Objective Vital Signs Date Time Temp Pulse Resp B/P Pulse Ox O2 Delivery O2 Flow Rate FiO2 04/02/16 10:00 57 04/02/16 08:00 98.1 13 101/60 99 04/02/16 07:43 50 03/30/16 09:41 Ventilator Intake and Output 04/01/16 04/01/16 04/02/16 08:00 16:00 00:00 Intake Total 1585 ml 658 ml 1128 ml Output Total 450 ml 550 ml 2500 ml Balance 1135 ml 108 ml -1372 ml Result Diagram: 03/30/16 0457 04/02/16 0600 Imaging Last 24 hours Impressions Chest X-Ray 03/29/16 0600 Signed Impressions: Service Date/Time: Tuesday, March 29, 2016 04:21 - CONCLUSION: Interval extubation. Slight improvement in aeration. Berlin Metzger MD Objective Remarks GENERAL: 89-year-old male, currently tracheally intubated SKIN: Warm and dry. No rash HEAD: Atraumatic. Normocephalic. NECK: Trach site clean. Supple, mobile. CARDIOVASCULAR: Regular rate and rhythm. S1, S2. Distant. No JVD. RESPIRATORY: Few mobile secretions. Breath sounds equal bilaterally. No wheezes. GASTROINTESTINAL: Abdomen soft, non-tender, nondistended. Midline place without drainage. Hypoactive bowel sounds. MUSCULOSKELETAL: Warm, well perfused. ++ edema. NEUROLOGICAL: Right pupil is fixed and dilated. Left pupil Reacts. Moves all 4 extremities to noxious stimuli. No obvious cranial nerve deficits. Motor grossly within normal limits Date of Insertion: Mar 21, 2016 Line: Central Venous Catheter Side: Right Location: Internal, Jugular A/P Assessment and Plan Respiratory failure - re-intubated due to complete opacification of left hemothorax 03/24 - Extubated 03/28 - Re-intubated 03/29 - and Tracheostomy placed - ACV 12/500/5/100 will wean to CPAP and TPs as tolerated -Tracheostomy MRSA PNA - Van per Pharmacy dosing -Reculture sputum 04/02 Cataract and Macular degeneration - Currently Alphagan D 1 drop right eye twice a day. . - continue Timoptic xc 0.25% 1 drop right eye at night. Depression - Trazodone 50 at night resume when extubated Hypertension - hemodynamically stable - normotensive - monitor Atrial fibrilation - Amiodarone stopped per cardiology Dyslipidemia - atorvastatin 40 mg resume when p.o. ok by GS Ischemic jejunum in internal hernia - s/p exploratory laparotomy - lysis of adhesions - small bowel resection - Vital at goal of 30 - tolerating well - adjust per Surgeon BPH - Dutasteride 0.5 mg at night for . Diabetes mellitus - Sliding scale insulin - Holding metformin while in the ICU Hypothyroidism - Levoxyl 112 g daily Asystolic episodes -Brief, when turning. -Hold amiodarone. Access - Right IJ CVL -> d/c Prophylaxis - GI - Protonix - DVT - SCD/pharmacological prophylaxis when okay with general surgery Overall impression: Start gingerly diuresis. Follow hardik Fritz K. Continue pacer pads. Victoriano Melgar MD Apr 02, 2016 11:34
[2016-04-02] MEDS: FINASTERIDE 5 MG TAB PO SCH (21:43)
[2016-04-02] MEDS: FLUCONAZOLE 400 MG PREMIX BAG 200 ML IV SCH (21:44)
--- NOTE | 2016-04-02 22:34 | EKG ---
Date Performed: 04/02/2016 Time Performed: 10:17:43 PTAGE: 89 years EKG: SINUS BRADYCARDIA WITH FIRST DEGREE AV BLOCK WITH OCCASIONAL VENTRICULAR PREMATURE COMPLEXE S INDETERMINATE AXIS low voltage RIGHT BUNDLE BRANCH BLOCK ABNORMAL ECG PREVIOUS TRACING : 03/31/2016 13.39 DOCTOR: Melita Watson Interpretating Date/Time 04/02/2016 22:33:22
[2016-04-02] MEDS: LEVOFLOXACIN 500 MG PREMIX INJ 100 ML IV SCH (23:00)
[2016-04-03] VITALS (19 sets, daily range): BP systolic 126–158; BP diastolic 57–70; PULSE 56–62; RESP 17–29; TEMP 97.9–98.1; O2SAT 90–97
[2016-04-03] MEDS: ACETAMINOPHEN/HYDROcodone 325 MG/5 MG TAB PO PRN ×2 (00:12→17:30)
[2016-04-03] MEDS ORDERED: PHARMACY ORDERED LAB XX ONE (04:45)
[2016-04-03] MEDS: VANCOMYCIN INJ 1,750 MG in SODIUM CHLORID 0.9% 500 ML INJ 500 ML IV SCH ×2 (06:04→23:46)
[2016-04-03] MEDS: ISOSORBIDE MONONITRATE 20 MG TAB PO SCH (06:04)
[2016-04-03] MEDS: LEVOTHYROXINE SODIUM 112 MCG TAB PO SCH (06:04)
--- NOTE | 2016-04-03 06:33 | RADRPT ---
EXAM DATE/TIME: 04/03/2016 04:57 [place] COMPARISON: CHEST SINGLE AP, March 30, 2016, 5:53. INDICATIONS : Shortness of breath. MEDICAL HISTORY : Carcinoma, gastric. SURGICAL HISTORY : None. ENCOUNTER: Subsequent ACUITY: 2 weeks PAIN SCORE: Non-responsive. LOCATION: Bilateral chest FINDINGS: Increase in the size of the left pleural effusion with meniscal opacity causing obscuration of most o f the left heart border and left hemidiaphragm. Hazy opacity at the right lower lung suggests a mode rate-sized right pleural effusion. There is interval development of loss of the right hemidiaphragm. Removal of right internal jugular catheter. Gastric tube traverses the [id number]. Tracheostom y in place. CONCLUSION: Increasing bilateral pleural effusions, left larger than right. Jian Kessler MD on April 03, 2016 at 6:31 Board Certified Radiologist. This report was verified electronically.
[2016-04-03 06:40] LABS: BICARBONATE 35.5 MEQ/L (21.0-32.0)
[2016-04-03 07:06] LABS: CALCIUM-PROTEIN CORRECTED 8.8 MG/DL (8.5-10.1)
[2016-04-03] MEDS: INSULIN ASPART SUPPLEMENTAL SCALE SQ SCH ×3 (08:00→16:00)
--- NOTE | 2016-04-03 08:16 | HHI.CCPN ---
Subjective Remarks/Hospital Course This is a 89-year-old male. Date of admission 03/18/2016. Date of consultation 03/21/2016. Past medical history includes bilateral cataracts, hypertension, disability, hypothyroidism, insomnia and history of gastric cancer status post partial gastrectomy and history of multiple inguinal hernia repairs. He presented to [facility] on 03/18 with acute onset abdominal pain. No bowel movements for several days. CT abdomen and pelvis revealed there is a small bowel position the right upper quadrant pelvis with a "twisting action likely incarceration. Hospital submitted patient general surgery was consulted. She had NG tube placed in cerebral abdominal exams and x-rays performed. Patient's abdominal pain persisted of nausea and vomiting. The patient eventually aborted with Dr. Cordon. Patient underwent exploratory laparoscopy/lyse adhesions with small bowel's resection secondary to ischemic jejunum loop an intestinal hernia. 2600 crystalloid. Minimal blood loss. 250 cc urine output. Patient has been on Levaquin/Flagyl since/5D UTI. This be continued. Patient is currently arousable on the ventilator. Multiple failures to extubate - Trach 03/29 03/30: Gas exchange improved. 03/31: Improved hemodynamics. Retaining fluid. 04/01: Start Lasix. Investigate asystolic episodes. 04/02: Diuretics increased, follow lytes. CVL 12 days, replace. Reculture sputum , d/c vanc if Staph minimal. 04/03: Continue aggressive diuresis as tolerated. Pleural effusions increasing. Glucose intolerance worse, will add Levemir BID to SSI. Objective Vital Signs Date Time Temp Pulse Resp B/P Pulse Ox O2 Delivery O2 Flow Rate FiO2 04/03/16 07:45 97 40 04/03/16 06:00 58 04/03/16 04:00 97.9 17 143/65 03/30/16 09:41 Ventilator Intake and Output 04/02/16 04/02/16 04/03/16 08:00 16:00 00:00 Intake Total 826 ml 942 ml 820 ml Output Total 650 ml 2500 ml 850 ml Balance 176 ml -1558 ml -30 ml Result Diagram: 03/30/16 0457 04/03/16 0602 Imaging Last 24 hours Impressions Chest X-Ray 03/29/16 0600 Signed Impressions: Service Date/Time: Tuesday, March 29, 2016 04:21 - CONCLUSION: Interval extubation. Slight improvement in aeration. Berlin Metzger MD Objective Remarks GENERAL: 89-year-old male, currently tracheally intubated SKIN: Warm and dry. No rash HEAD: Atraumatic. Normocephalic. NECK: Trach site clean. Supple, mobile. CARDIOVASCULAR: Regular rate and rhythm. S1, S2. Distant. No JVD. RESPIRATORY: Few mobile secretions. Breath sounds equal bilaterally. No wheezes. Decreased sounds bases. GASTROINTESTINAL: Abdomen soft, non-tender, nondistended. Midline place without drainage. Hypoactive bowel sounds. MUSCULOSKELETAL: Warm, well perfused. ++ edema. NEUROLOGICAL: Right pupil is fixed and dilated. Left pupil Reacts. Moves all 4 extremities to noxious stimuli. No obvious cranial nerve deficits. Motor grossly within normal limits Date of Insertion: Mar 21, 2016 Line: Central Venous Catheter Side: Right Location: Internal, Jugular A/P Assessment and Plan Respiratory failure - re-intubated due to complete opacification of left hemothorax 03/24 - Extubated 03/28 - Re-intubated 03/29 - and Tracheostomy placed - ACV 12/500/5/100 will wean to CPAP and TPs as tolerated -Tracheostomy MRSA PNA - Van per Pharmacy dosing -Reculture sputum 04/02 Cataract and Macular degeneration - Currently Alphagan D 1 drop right eye twice a day. . - continue Timoptic xc 0.25% 1 drop right eye at night. Depression - Trazodone 50 at night resume when extubated Hypertension - hemodynamically stable - normotensive - monitor Atrial fibrilation - Amiodarone stopped per cardiology Dyslipidemia - atorvastatin 40 mg resume when p.o. ok by GS Ischemic jejunum in internal hernia - s/p exploratory laparotomy - lysis of adhesions - small bowel resection - Vital at goal of 30 - tolerating well - adjust per Surgeon BPH - Dutasteride 0.5 mg at night for . Diabetes mellitus - Sliding scale insulin - Holding metformin while in the ICU Hypothyroidism - Levoxyl 112 g daily Asystolic episodes -Brief, when turning. -Hold amiodarone. Access - Right IJ CVL -> d/c Prophylaxis - GI - Protonix - DVT - SCD/pharmacological prophylaxis when okay with general surgery Overall impression: Aggressive diuresis. Follow , hardik K. Continue pacer pads. No more fabienne episode. Victoriano Melgar MD Apr 03, 2016 08:16
[2016-04-03] MEDS: FAMOTIDINE 20 MG TAB PO SCH ×2 (08:17→21:11)
[2016-04-03] MEDS: FLUoxetine HCL 20 MG CAP PO SCH (08:17)
[2016-04-03] MEDS: HEPARIN SODIUM - SQ 10,000 UNITS/ML VIAL SQ SCH ×2 (08:17→21:10)
[2016-04-03] MEDS: LACTOBACILLUS ACIDOPHILUS TAB PO SCH ×2 (08:17→21:00)
[2016-04-03] MEDS: SODIUM CHLORIDE 0.9% FLUSH 5 ML FLUSH IVF SCH (08:18)
[2016-04-03] MEDS: TIMOLOL MALEATE 0.5% OPHT SOLN 5 ML BTL RIGHT EYE SCH ×2 (08:24→21:00)
[2016-04-03] MEDS: BRIMONIDINE TARTRATE 0.15% OPHT SOLN 5 ML BTL RIGHT EYE SCH ×2 (08:24→21:00)
[2016-04-03] MEDS: SODIUM HYPOCHLORITE 0.25% 500 ML BTL TOPICAL SCH ×2 (08:24→21:00)
[2016-04-03] MEDS: CHLORHEXIDINE 0.12% (ORAL KIT) 15 ML CUP MT SCH ×2 (08:25→20:00)
[2016-04-03 08:51] LABS: AUTOMATED NEUTROPHIL # 9.7 TH/MM3 (1.8-7.7); BASOPHIL # 0.1 TH/MM3 (0-0.2); BASOPHIL % 0.6 % (0.0-2.0); EOSINOPHIL # 0.1 TH/MM3 (0-0.4); EOSINOPHIL % 1.3 % (0.0-4.0); HEMATOCRIT 28.9 % (39.0-51.0); HEMO FLAGS DIFF FINAL; LYMPH % 6.8 % (9.0-44.0); LYMPHOCYTE # 0.8 TH/MM3 (1.0-4.8); MEAN CELL VOLUME 88.1 FL (80.0-100.0); MEAN CORPUSCULAR HGB CONC 32.9 % (32.0-36.0); MONO % 5.1 % (0.0-8.0); NEUT % 86.2 % (16.0-70.0); PLATELET COUNT 337 TH/MM3 (150-450); RED BLOOD COUNT 3.28 MIL/MM3 (4.50-5.90); RED CELL DISTRIBUTION WIDTH 13.9 % (11.6-17.2); WHITE BLOOD COUNT 11.2 TH/MM3 (4.0-11.0)
[2016-04-03] MEDS: INSULIN DETEMIR 100 UNITS/ML VIAL SQ SCH ×2 (09:00→21:00)
[2016-04-03] MEDS: FUROSEMIDE 40 MG/4 ML VIAL IV PUSH SCH ×2 (09:00→21:11)
[2016-04-03] MEDS: FINASTERIDE 5 MG TAB PO SCH (21:11)
[2016-04-03] MEDS: FLUCONAZOLE 400 MG PREMIX BAG 200 ML IV SCH (21:12)
--- NOTE | 2016-04-03 21:15 | HHI.PR ---
Subjective Subjective Notes on vent Objective Vitals/I&O Vital Signs Date Time Temp Pulse Resp B/P Pulse Ox O2 Delivery O2 Flow Rate FiO2 04/03/16 20:24 96 50 04/03/16 18:00 59 04/03/16 16:00 98.0 18 141/64 04/03/16 09:18 T-piece Labs Laboratory Tests Test 04/03/16 04/03/16 06:00 06:02 Vancomycin Level Trough 17.2 White Blood Count 11.2 Red Blood Count 3.28 Hemoglobin 9.5 Hematocrit 28.9 Mean Corpuscular Volume 88.1 Mean Corpuscular Hemoglobin 29.0 Mean Corpuscular Hemoglobin 32.9 Concent Red Cell Distribution Width 13.9 Platelet Count 337 Mean Platelet Volume 7.6 Neutrophils (%) (Auto) 86.2 Lymphocytes (%) (Auto) 6.8 Monocytes (%) (Auto) 5.1 Eosinophils (%) (Auto) 1.3 Basophils (%) (Auto) 0.6 Neutrophils # (Auto) 9.7 Lymphocytes # (Auto) 0.8 Monocytes # (Auto) 0.6 Eosinophils # (Auto) 0.1 Basophils # (Auto) 0.1 CBC Comment DIFF FINAL Differential Comment Hematology Comments Sodium Level 134 Potassium Level 4.0 Chloride Level 95 Carbon Dioxide Level 35.5 Anion Gap 4 Blood Urea Nitrogen 14 Creatinine 0.62 Estimat Glomerular Filtration 122 Rate Random Glucose 245 Calcium Level 7.4 Protein Corrected Calcium 8.8 Total Protein 4.7 Date/Time Procedure Status Source Growth 04/02/16 11:50 Gram Stain - Final Resulted Sputum Endotracheal 04/02/16 11:50 Sputum Culture - Preliminary Resulted Sputum Endotracheal HEAVY GROWTH NORMAL RESPIRATORY ROSE MARIE... Abdomen: Non-distended, Post-op tenderness A/P Assessment and Plan 89yo s/p exlap, stable, wound clean/dry/intact, continue supportive care and dressing changes Prakash Sutton MD Apr 03, 2016 21:14
[2016-04-03] MEDS: LEVOFLOXACIN 500 MG PREMIX INJ 100 ML IV SCH (23:43)
[2016-04-04] VITALS (18 sets, daily range): BP systolic 117–146; BP diastolic 58–80; PULSE 55–62; RESP 18–28; TEMP 98.1–98.4; O2SAT 92–99
[2016-04-04 04:08] LABS: AUTOMATED NEUTROPHIL # 8.1 TH/MM3 (1.8-7.7); BASOPHIL # 0.1 TH/MM3 (0-0.2); BASOPHIL % 0.9 % (0.0-2.0); EOSINOPHIL # 0.1 TH/MM3 (0-0.4); EOSINOPHIL % 1.2 % (0.0-4.0); HEMATOCRIT 29.8 % (39.0-51.0); LYMPH % 8.1 % (9.0-44.0); LYMPHOCYTE # 0.8 TH/MM3 (1.0-4.8); MEAN CELL VOLUME 88.2 FL (80.0-100.0); MEAN CORPUSCULAR HEMOGLOBIN 29.5 PG (27.0-34.0); MEAN CORPUSCULAR HGB CONC 33.4 % (32.0-36.0); NEUT % 80.8 % (16.0-70.0); PLATELET COUNT 276 TH/MM3 (150-450); RED BLOOD COUNT 3.38 MIL/MM3 (4.50-5.90); RED CELL DISTRIBUTION WIDTH 14.3 % (11.6-17.2)
[2016-04-04 04:17] LABS: HEMO FLAGS AUTO DIFF
[2016-04-04 04:32] LABS: BICARBONATE 37.3 MEQ/L (21.0-32.0); POTASSIUM 3.9 MEQ/L (3.5-5.1)
[2016-04-04 04:44] LABS: CALCIUM-PROTEIN CORRECTED 8.6 MG/DL (8.5-10.1)
[2016-04-04] MEDS: LEVOTHYROXINE SODIUM 112 MCG TAB PO SCH (05:36)
[2016-04-04] MEDS: ISOSORBIDE MONONITRATE 20 MG TAB PO SCH (05:37)
--- NOTE | 2016-04-04 07:30 | HHI.CCPN ---
Subjective Remarks/Hospital Course This is a 89-year-old male. Date of admission 03/18/2016. Date of consultation 03/21/2016. Past medical history includes bilateral cataracts, hypertension, disability, hypothyroidism, insomnia and history of gastric cancer status post partial gastrectomy and history of multiple inguinal hernia repairs. He presented to [facility] on 03/18 with acute onset abdominal pain. No bowel movements for several days. CT abdomen and pelvis revealed there is a small bowel position the right upper quadrant pelvis with a "twisting action likely incarceration. Hospital submitted patient general surgery was consulted. She had NG tube placed in cerebral abdominal exams and x-rays performed. Patient's abdominal pain persisted of nausea and vomiting. The patient eventually aborted with Dr. Cordon. Patient underwent exploratory laparoscopy/lyse adhesions with small bowel's resection secondary to ischemic jejunum loop an intestinal hernia. 2600 crystalloid. Minimal blood loss. 250 cc urine output. Patient has been on Levaquin/Flagyl since/5D UTI. This be continued. Patient is currently arousable on the ventilator. Multiple failures to extubate - Trach 03/29 03/30: Gas exchange improved. 03/31: Improved hemodynamics. Retaining fluid. 04/01: Start Lasix. Investigate asystolic episodes. 04/02: Diuretics increased, follow lytes. CVL 12 days, replace. Reculture sputum , d/c vanc if Staph minimal. 04/03: Continue aggressive diuresis as tolerated. Pleural effusions increasing. Glucose intolerance worse, will add Levemir BID to SSI. 04/04: Good response to BID lasix overnight, encouraging. Fluid balance made difficult by several antibiotics but we are making headway. Objective Vital Signs Date Time Temp Pulse Resp B/P Pulse Ox O2 Delivery O2 Flow Rate FiO2 04/04/16 06:00 58 04/04/16 04:22 95 50 04/04/16 04:00 98.1 18 126/60 04/03/16 09:18 T-piece Intake and Output 04/03/16 04/03/16 04/04/16 08:00 16:00 00:00 Intake Total 576 ml 763 ml 610 ml Output Total 650 ml 2900 ml 1200 ml Balance -74 ml -2137 ml -590 ml Result Diagram: 04/04/16 0330 04/04/16 0330 Imaging Last 24 hours Impressions Chest X-Ray 03/29/16 0600 Signed Impressions: Service Date/Time: Tuesday, March 29, 2016 04:21 - CONCLUSION: Interval extubation. Slight improvement in aeration. Berlin Metzger MD Objective Remarks GENERAL: 89-year-old male, currently tracheally intubated SKIN: Warm and dry. No rash HEAD: Atraumatic. Normocephalic. NECK: Trach site clean. Supple, mobile. CARDIOVASCULAR: Regular rate and rhythm. S1, S2. Distant. No JVD. RESPIRATORY: Few mobile secretions. Breath sounds equal bilaterally. No wheezes. Decreased sounds bases. GASTROINTESTINAL: Abdomen soft, non-tender, nondistended. Midline place without drainage. Active bowel sounds. MUSCULOSKELETAL: Warm, well perfused. ++ edema. NEUROLOGICAL: Right pupil is fixed and dilated. Left pupil reacts. Moves all 4 extremities to noxious stimuli. No obvious cranial nerve deficits. Motor grossly within normal limits Date of Insertion: Mar 21, 2016 Line: Central Venous Catheter Side: Right Location: Internal, Jugular A/P Assessment and Plan Respiratory failure - re-intubated due to complete opacification of left hemothorax 03/24 - Extubated 03/28 - Re-intubated 03/29 - and Tracheostomy placed - ACV 12/500/5/100 will wean to CPAP and TPs as tolerated -Tracheostomy MRSA PNA - Van per Pharmacy dosing -Reculture sputum 04/02 Cataract and Macular degeneration - Currently Alphagan D 1 drop right eye twice a day. . - continue Timoptic xc 0.25% 1 drop right eye at night. Depression - Trazodone 50 at night resume when extubated Hypertension - hemodynamically stable - normotensive - monitor Atrial fibrilation - Amiodarone stopped per cardiology Dyslipidemia - atorvastatin 40 mg resume when p.o. ok by GS Ischemic jejunum in internal hernia - s/p exploratory laparotomy - lysis of adhesions - small bowel resection - Vital at goal of 30 - tolerating well - adjust per Surgeon BPH - Dutasteride 0.5 mg at night for . Diabetes mellitus - Sliding scale insulin - Holding metformin while in the ICU Hypothyroidism - Levoxyl 112 g daily Asystolic episodes -Brief, when turning. -Hold amiodarone. Access - Right IJ CVL -> d/c Prophylaxis - GI - Protonix - DVT - SCD/pharmacological prophylaxis when okay with general surgery Overall impression: Continue aggressive diuresis. Follow hardik Fritz K. Continue pacer pads. No more fabienne episode. Victoriano Melgar MD Apr 04, 2016 07:30
[2016-04-04 08:33] LABS: BANDS 11 % (0-6); EOSINOPHILS 1 % (0-4); NEUTROPHIL # MANUAL DIFF 7.7 TH/MM3 (1.8-7.7); POLYS (SEG NEUTROPHILS) 66 % (16-70); TOXIC GRANULATION 1+ (NORMAL); TOXIC VACUOLATION PRESENT (NONE SEEN); WBC DIFF SAMPLE 100
[2016-04-04] MEDS: TIMOLOL MALEATE 0.5% OPHT SOLN 5 ML BTL RIGHT EYE SCH ×2 (08:33→20:12)
[2016-04-04] MEDS: SODIUM HYPOCHLORITE 0.25% 500 ML BTL TOPICAL SCH ×2 (08:33→20:12)
[2016-04-04] MEDS: BRIMONIDINE TARTRATE 0.15% OPHT SOLN 5 ML BTL RIGHT EYE SCH ×2 (08:33→20:12)
[2016-04-04] MEDS: CHLORHEXIDINE 0.12% (ORAL KIT) 15 ML CUP MT SCH ×2 (08:33→20:11)
[2016-04-04 08:34] LABS: PLATELET ESTIMATE SMEAR NORMAL (NORMAL); PLATELET MORPHOLOGY NORMAL (NORMAL); SCAN/DIFF FINAL DIFF MANUAL
[2016-04-04] MEDS: INSULIN DETEMIR 100 UNITS/ML VIAL SQ SCH ×2 (08:43→20:11)
[2016-04-04] MEDS: INSULIN ASPART SUPPLEMENTAL SCALE SQ SCH ×4 (08:44→21:00)
[2016-04-04] MEDS: HEPARIN SODIUM - SQ 10,000 UNITS/ML VIAL SQ SCH ×2 (08:44→20:11)
[2016-04-04] MEDS: FUROSEMIDE 40 MG/4 ML VIAL IV PUSH SCH ×2 (08:45→20:11)
[2016-04-04] MEDS: FLUoxetine HCL 20 MG CAP PO SCH (08:45)
[2016-04-04] MEDS: FAMOTIDINE 20 MG TAB PO SCH ×2 (08:45→20:12)
[2016-04-04] MEDS: SODIUM CHLORIDE 0.9% FLUSH 5 ML FLUSH IVF SCH (08:45)
[2016-04-04] MEDS: LACTOBACILLUS ACIDOPHILUS TAB PO SCH ×2 (09:08→20:11)
--- NOTE | 2016-04-04 12:58 | HHI.PR ---
Subjective Subjective Notes sedated on vent, no problems per RN Objective Vitals/I&O Vital Signs Date Time Temp Pulse Resp B/P Pulse Ox O2 Delivery O2 Flow Rate FiO2 04/04/16 10:00 60 04/04/16 09:33 92 50 04/04/16 08:00 98.3 19 136/60 04/03/16 09:18 T-piece Labs Laboratory Tests Test 04/04/16 03:30 White Blood Count 10.0 Red Blood Count 3.38 Hemoglobin 10.0 Hematocrit 29.8 Mean Corpuscular Volume 88.2 Mean Corpuscular Hemoglobin 29.5 Mean Corpuscular Hemoglobin 33.4 Concent Red Cell Distribution Width 14.3 Platelet Count 276 Mean Platelet Volume 8.0 Neutrophils (%) (Auto) 80.8 Lymphocytes (%) (Auto) 8.1 Monocytes (%) (Auto) 9.0 Eosinophils (%) (Auto) 1.2 Basophils (%) (Auto) 0.9 Neutrophils # (Auto) 8.1 Lymphocytes # (Auto) 0.8 Monocytes # (Auto) 0.9 Eosinophils # (Auto) 0.1 Basophils # (Auto) 0.1 CBC Comment AUTO DIFF Differential Total Cells 100 Counted Neutrophils % (Manual) 66 Band Neutrophils % 11 Lymphocytes % 12 Monocytes % 10 Eosinophils % 1 Neutrophils # (Manual) 7.7 Differential Comment FINAL DIFF MANUAL Toxic Granulation 1+ Toxic Vacuolation PRESENT Platelet Estimate NORMAL Platelet Morphology Comment NORMAL Sodium Level 133 Potassium Level 3.9 Chloride Level 91 Carbon Dioxide Level 37.3 Anion Gap 5 Blood Urea Nitrogen 14 Creatinine 0.64 Estimat Glomerular Filtration 118 Rate Random Glucose 174 Calcium Level 7.4 Protein Corrected Calcium 8.6 Total Protein 4.9 Date/Time Procedure Status Source Growth 04/02/16 11:50 Gram Stain - Final Complete Sputum Endotracheal 04/02/16 11:50 Sputum Culture - Final Complete S. Aureus Mrsa Cardiovascular: Regular Lungs: Clear Abdomen: Post-op tenderness, BS normal Narrative Exam dressing changed at bedside, wound is clean, few sutures exposed inferior, no sign of active infection or dehiscence. massive scrotal edema A/P Assessment and Plan s/p exp lap, wound infection stable continue dressing changes and weaning Chuck Mehta MD Apr 04, 2016 12:58
[2016-04-04] MEDS: VANCOMYCIN INJ 1,750 MG in SODIUM CHLORID 0.9% 500 ML INJ 500 ML IV SCH (17:33)
[2016-04-04] MEDS: FLUCONAZOLE 400 MG PREMIX BAG 200 ML IV SCH (20:11)
[2016-04-04] MEDS: FINASTERIDE 5 MG TAB PO SCH (20:12)
[2016-04-04] MEDS: LEVOFLOXACIN 500 MG PREMIX INJ 100 ML IV SCH (22:47)
[2016-04-05] VITALS (14 sets, daily range): BP systolic 107–172; BP diastolic 56–71; PULSE 52–64; RESP 19–24; TEMP 98.3–98.7; O2SAT 93–99
[2016-04-05] MEDS: ISOSORBIDE MONONITRATE 20 MG TAB PO SCH ×3 (04:50→05:52)
[2016-04-05] MEDS: LEVOTHYROXINE SODIUM 112 MCG TAB PO SCH (04:50)
[2016-04-05 05:19] LABS: BICARBONATE 36.1 MEQ/L (21.0-32.0); MAGNESIUM 1.8 MG/DL (1.5-2.5); POTASSIUM 3.3 MEQ/L (3.5-5.1)
[2016-04-05 05:33] LABS: CALCIUM-PROTEIN CORRECTED 8.3 MG/DL (8.5-10.1)
[2016-04-05] MEDS: INSULIN ASPART SUPPLEMENTAL SCALE SQ SCH ×3 (05:50→16:00)
[2016-04-05] MEDS: POTASSIUM CHLOR 20 MEQ PREMIX 100 ML IV PRN ×2 (05:51→05:52)
[2016-04-05] MEDS: CHLORHEXIDINE 0.12% (ORAL KIT) 15 ML CUP MT SCH (08:00)
[2016-04-05] MEDS: TIMOLOL MALEATE 0.5% OPHT SOLN 5 ML BTL RIGHT EYE SCH (09:00)
[2016-04-05] MEDS: BRIMONIDINE TARTRATE 0.15% OPHT SOLN 5 ML BTL RIGHT EYE SCH (09:00)
[2016-04-05] MEDS: SODIUM HYPOCHLORITE 0.25% 500 ML BTL TOPICAL SCH (09:00)
[2016-04-05] MEDS: INSULIN DETEMIR 100 UNITS/ML VIAL SQ SCH (09:20)
[2016-04-05] MEDS: LACTOBACILLUS ACIDOPHILUS TAB PO SCH (09:20)
[2016-04-05] MEDS: HEPARIN SODIUM - SQ 10,000 UNITS/ML VIAL SQ SCH (09:20)
[2016-04-05] MEDS: FAMOTIDINE 20 MG TAB PO SCH (09:21)
[2016-04-05] MEDS: FLUoxetine HCL 20 MG CAP PO SCH (09:21)
[2016-04-05] MEDS: SODIUM CHLORIDE 0.9% FLUSH 5 ML FLUSH IVF SCH (09:22)
[2016-04-05] MEDS: FUROSEMIDE 40 MG/4 ML VIAL IV PUSH SCH (09:22)
--- NOTE | 2016-04-05 09:43 | PD.CARD.PN ---
Subjective Subjective Remarks Awake. Somnolent. Objective Medications Item Value Date Time Furosemide 40 mg 04/03/16 0900 (Lasix Inj) Q12H/IV PUSH 04/04/162010 Heparin Sodium 5,000 units 04/01/16 2100 (Porcine) Q12HR/SQ 04/04/162010 (Heparin Inj) Furosemide 40 mg 04/03/16 0900 (Lasix Inj) Q12H/IV PUSH 04/05/16921 Heparin Sodium 5,000 units 04/01/162099 (Porcine) Q12HR/SQ 04/05/16919 (Heparin Inj) Vital Signs / I&O Vital Signs Date Time Temp Pulse Resp B/P Pulse Ox O2 Delivery O2 Flow Rate FiO2 04/05/16 07:34 95 50 04/05/16 06:00 64 04/05/16 04:29 94 50 04/05/16 04:00 98.3 62 20 114/56 95 04/05/16 04:00 62 04/05/16 04:00 50 04/05/16 02:00 57 04/05/16 01:25 96 50 04/05/16 00:00 98.3 59 23 128/71 93 04/05/16 00:00 59 04/05/16 00:00 50 04/04/16 22:00 58 04/04/16 21:44 95 50 04/04/16 20:00 50 04/04/16 20:00 98.1 59 24 146/68 94 04/04/16 20:00 59 04/04/16 18:00 62 04/04/16 17:40 99 50 04/04/16 16:00 56 04/04/16 16:00 98.3 56 28 125/59 97 04/04/16 16:00 50 04/04/16 14:38 93 50 04/04/16 14:00 55 04/04/16 12:00 98.4 58 21 117/58 95 04/04/16 12:00 59 04/04/16 12:00 50 04/04/16 10:00 60 I/O 04/04/16 04/04/16 04/04/16 04/05/16 04/05/16 04/05/16 07:00 15:00 23:00 07:00 15:00 23:00 Intake Total 1156 ml 323 ml 1106 ml 534 ml Output Total 1800 ml 3400 ml 2900 ml 1650 ml Balance -644 ml -3077 ml -1794 ml -1116 ml Intake Oral 0 ml IV Total 706 ml 90 ml 746 ml 154 ml Tube Feeding 350 ml 213 ml 330 ml 350 ml Tube Irrigant 100 ml 20 ml 30 ml 30 ml Output Urine Total 1800 ml 3400 ml 2900 ml 1650 ml # Bowel Movements 0 0 1 Physical Exam GENERAL: Well developed, well nourished. No acute distress. Intubated. HEENT: Jugular venous pressure is normal. CHEST: Lungs clear to auscultation anteriorly. CARDIAC: Regular rate and rhythm without S3, S4, or murmur. ABDOMEN: Soft. Bowel sounds present. EXTREMITIES: SCD's in place. No pretibial edema. Laboratory Laboratory Tests Test 04/05/16 03:45 Sodium Level 133 MEQ/L Potassium Level 3.3 MEQ/L Chloride Level 90 MEQ/L Carbon Dioxide Level 36.1 MEQ/L Anion Gap 7 MEQ/L Blood Urea Nitrogen 15 MG/DL Creatinine 0.72 MG/DL Estimat Glomerular Filtration 103 ML/MIN Rate Random Glucose 118 MG/DL Calcium Level 7.3 MG/DL Protein Corrected Calcium 8.3 MG/DL Phosphorus Level 3.0 MG/DL Magnesium Level 1.8 MG/DL Total Protein 5.2 GM/DL Assessment and Plan Problem List: (1) Paroxysmal atrial fibrillation Assessment and Plan: Appears to be in sinus bradycardia, occasional PACs. No further pauses noted on monitoring strips over the weekend.. EF by echo normal by my review. REC continue to monitor; keep off AV joseph suppressing drugs daily aspirin if OK from surgical standpoint will f/u periodically Code Status full code Discussed Condition With patient's son Mao Juarez MD Apr 05, 2016 09:43
[2016-04-05] MEDS ORDERED: ASPIRIN 81 MG CHEW TAB TUBE SCH (10:00)
--- NOTE | 2016-04-05 10:59 | HHI.PR ---
Subjective Subjective Notes Resting in bed; on full support MV via trach Objective Vitals/I&O Vital Signs Date Time Temp Pulse Resp B/P Pulse Ox O2 Delivery O2 Flow Rate FiO2 04/05/16 07:34 95 50 04/05/16 06:00 64 04/05/16 04:00 98.3 20 114/56 04/03/16 09:18 T-piece Labs Laboratory Tests Test 04/05/16 03:45 Sodium Level 133 Potassium Level 3.3 Chloride Level 90 Carbon Dioxide Level 36.1 Anion Gap 7 Blood Urea Nitrogen 15 Creatinine 0.72 Estimat Glomerular Filtration 103 Rate Random Glucose 118 Calcium Level 7.3 Protein Corrected Calcium 8.3 Phosphorus Level 3.0 Magnesium Level 1.8 Total Protein 5.2 Date/Time Procedure Status Source Growth 04/02/16 11:50 Gram Stain - Final Complete Sputum Endotracheal 04/02/16 11:50 Sputum Culture - Final Complete S. Aureus Mrsa Cardiovascular: Regular Lungs: Clear Abdomen: Other (midline abdominal wound with packing; wound in clean with no drainage ) Extremities: Other (mild general edema ) Narrative Exam Mild grimace with palpation of abdomen A/P Assessment and Plan 89 year old male s/p resection small bowel -+MRSA in wound culture---on IV vancomycin -Continue dressing changes with Dakin's solution -Tolerating TF at 50cc/hr -Vent per CCM -Pain controlled with Lortab -Cardiology following -CM working on placement at [facility] in [place] closer to son Attending Note - Dr. Cordon Abdominal wound clean Has total extremity anasarca TP increased to 5.2 Increase TF slightly The exam, history, and the medical decision-making described in the above note were completed with the assistance of the mid-level provider. I reviewed and agree with the findings presented. I attest that I had a [id number] encounter with the patient on the same day, and personally performed and documented my assessment and findings in the medical record. Linda Mcleod Apr 05, 2016 10:59 Mahesh Cordon MD Apr 05, 2016 12:31
[2016-04-05] MEDS: VANCOMYCIN INJ 1,750 MG in SODIUM CHLORID 0.9% 500 ML INJ 500 ML IV SCH (11:00)
--- NOTE | 2016-04-05 12:57 | HHI.CCPN ---
Subjective Remarks/Hospital Course This is a 89-year-old male. Date of admission 03/18/2016. Date of consultation 03/21/2016. Past medical history includes bilateral cataracts, hypertension, disability, hypothyroidism, insomnia and history of gastric cancer status post partial gastrectomy and history of multiple inguinal hernia repairs. He presented to [facility] on 03/18 with acute onset abdominal pain. No bowel movements for several days. CT abdomen and pelvis revealed there is a small bowel position the right upper quadrant pelvis with a "twisting action likely incarceration. Hospital submitted patient general surgery was consulted. She had NG tube placed in cerebral abdominal exams and x-rays performed. Patient's abdominal pain persisted of nausea and vomiting. The patient eventually aborted with Dr. Cordon. Patient underwent exploratory laparoscopy/lyse adhesions with small bowel's resection secondary to ischemic jejunum loop an intestinal hernia. 2600 crystalloid. Minimal blood loss. 250 cc urine output. Patient has been on Levaquin/Flagyl since/5D UTI. This be continued. Patient is currently arousable on the ventilator. Multiple failures to extubate - Trach 03/29 03/30: Gas exchange improved. 03/31: Improved hemodynamics. Retaining fluid. 04/01: Start Lasix. Investigate asystolic episodes. 04/02: Diuretics increased, follow lytes. CVL 12 days, replace. Reculture sputum , d/c vanc if Staph minimal. 04/03: Continue aggressive diuresis as tolerated. Pleural effusions increasing. Glucose intolerance worse, will add Levemir BID to SSI. 04/04: Good response to BID lasix overnight, encouraging. Fluid balance made difficult by several antibiotics but we are making headway. 04/05: Continue aggressive diuresis; try to diurese off the pleural effusions and peripheral edema. Objective Vital Signs Date Time Temp Pulse Resp B/P Pulse Ox O2 Delivery O2 Flow Rate FiO2 04/05/16 07:34 95 50 04/05/16 06:00 64 04/05/16 04:00 98.3 20 114/56 04/03/16 09:18 T-piece Intake and Output 04/04/16 04/04/16 04/05/16 08:00 16:00 00:00 Intake Total 1156 ml 323 ml 1106 ml Output Total 1800 ml 3400 ml 2900 ml Balance -644 ml -3077 ml -1794 ml Result Diagram: 04/04/16 0330 04/05/16 0345 Imaging Last 24 hours Impressions Chest X-Ray 03/29/16 0600 Signed Impressions: Service Date/Time: Tuesday, March 29, 2016 04:21 - CONCLUSION: Interval extubation. Slight improvement in aeration. Berlin Metzger MD Objective Remarks GENERAL: 89-year-old male, currently tracheally intubated SKIN: Warm and dry. No rash HEAD: Atraumatic. Normocephalic. NECK: Trach site clean. Supple, mobile. CARDIOVASCULAR: Regular rate and rhythm. S1, S2. Distant. No JVD. RESPIRATORY: Few mobile secretions. Breath sounds equal bilaterally. No wheezes. Decreased sounds bases. GASTROINTESTINAL: Abdomen soft, non-tender, nondistended. Midline place without drainage. Active bowel sounds. MUSCULOSKELETAL: Warm, well perfused. ++ edema. NEUROLOGICAL: Right pupil is fixed and dilated. Left pupil reacts. Moves all 4 extremities to noxious stimuli. No obvious cranial nerve deficits. Motor grossly within normal limits Date of Insertion: Mar 21, 2016 Line: Central Venous Catheter Side: Right Location: Internal, Jugular A/P Assessment and Plan Respiratory failure - re-intubated due to complete opacification of left hemothorax 03/24 - Extubated 03/28 - Re-intubated 03/29 - and Tracheostomy placed - ACV 12/500/5/100 will wean to CPAP and TPs as tolerated -Tracheostomy -Pleural effusions persist MRSA PNA - Van per Pharmacy dosing -Reculture sputum 04/02 -> Staph Cataract and Macular degeneration - Currently Alphagan D 1 drop right eye twice a day. . - continue Timoptic xc 0.25% 1 drop right eye at night. Depression - Trazodone 50 at night resume when extubated Hypertension - hemodynamically stable - normotensive - monitor Atrial fibrilation - Amiodarone stopped per cardiology Dyslipidemia - atorvastatin 40 mg resume when p.o. ok by GS Ischemic jejunum in internal hernia - s/p exploratory laparotomy - lysis of adhesions - small bowel resection - Vital at goal of 30 - tolerating well - adjust per Surgeon BPH - Dutasteride 0.5 mg at night for . Diabetes mellitus - Sliding scale insulin - Holding metformin while in the ICU Hypothyroidism - Levoxyl 112 g daily Asystolic episodes -Brief, when turning. -Hold amiodarone. Access - Right IJ CVL -> d/c Prophylaxis - GI - Protonix - DVT - SCD/pharmacological prophylaxis when okay with general surgery Overall impression: Continue aggressive diuresis. Follow hardik Fritz K. Continue pacer pads. No more fabienne episodes. Ready for transfer to LTAC. Will need at least 3 weeks to wean vent. Victoriano Melgar MD Apr 05, 2016 12:57
--- NOTE | 2016-04-05 13:25 | HHI.DS ---
Discharge Summary Admission Date Mar 18, 2016 at 17:39 Admitting Diagnosis small bowel obstruction (1) Small bowel obstruction ICD Code: K56.69 (2) Diabetes ICD Code: E11.9 (3) UTI (urinary tract infection) ICD Code: N39.0 Brief History 89-year-old male with a history of diabetes, prior abdominal surgeries was brought to the ED for evaluation of an acute onset of abdominal pain patient rated 10 out of 10 in intensity him a which started after eating breakfast today and got progressively worse throughout the day. He had episode of nausea along with vomiting however nonbilious. There was no associated chest pain or shortness of breath. He denies any bowel change although today he didn't have any bowel movements and patient denies any flatus. There is no GI bleed. CBC/BMP: 04/04/16 0330 04/05/16 0345 Significant Findings Laboratory Tests Test 04/03/16 04/03/16 04/04/16 04/05/16 06:00 06:02 03:30 03:45 Vancomycin Level Trough 17.2 MCG/ML (5.0-10.0) White Blood Count 11.2 TH/MM3 (4.0-11.0) Red Blood Count 3.28 MIL/MM3 3.38 MIL/MM3 (4.50-5.90) (4.50-5.90) Hemoglobin 9.5 GM/DL 10.0 GM/DL (13.0-17.0) (13.0-17.0) Hematocrit 28.9 % 29.8 % (39.0-51.0) (39.0-51.0) Neutrophils (%) (Auto) 86.2 % 80.8 % (16.0-70.0) (16.0-70.0) Lymphocytes (%) (Auto) 6.8 % 8.1 % (9.0-44.0) (9.0-44.0) Neutrophils # (Auto) 9.7 TH/MM3 8.1 TH/MM3 (1.8-7.7) (1.8-7.7) Lymphocytes # (Auto) 0.8 TH/MM3 0.8 TH/MM3 (1.0-4.8) (1.0-4.8) Sodium Level 134 MEQ/L 133 MEQ/L 133 MEQ/L (136-145) (136-145) (136-145) Chloride Level 95 MEQ/L 91 MEQ/L 90 MEQ/L (98-107) (98-107) (98-107) Carbon Dioxide Level 35.5 MEQ/L 37.3 MEQ/L 36.1 MEQ/L (21.0-32.0) (21.0-32.0) (21.0-32.0) Anion Gap 4 MEQ/L (5-15) Random Glucose 245 MG/DL 174 MG/DL 118 MG/DL (74-106) (74-106) (74-106) Calcium Level 7.4 MG/DL 7.4 MG/DL 7.3 MG/DL (8.5-10.1) (8.5-10.1) (8.5-10.1) Total Protein 4.7 GM/DL 4.9 GM/DL 5.2 GM/DL (6.4-8.2) (6.4-8.2) (6.4-8.2) Monocytes (%) (Auto) 9.0 % (0.0-8.0) Band Neutrophils % 11 % (0-6) Monocytes % 10 % (0-8) Toxic Granulation 1+ (NORMAL) Toxic Vacuolation PRESENT (NONE SEEN) Potassium Level 3.3 MEQ/L (3.5-5.1) Protein Corrected Calcium 8.3 MG/DL (8.5-10.1) PE at Discharge GENERAL: NAD with NG tube in place SKIN: Warm and dry. HEAD: Normocephalic. EYES: No scleral icterus. No injection or drainage. NECK: Supple, trachea midline. No JVD or lymphadenopathy. CARDIOVASCULAR: Regular rate and rhythm with II/ LILY RESPIRATORY: Breath sounds equal bilaterally. No accessory muscle use. GASTROINTESTINAL: Abdomen soft, + tender, nondistended. Hypoactive bowel sounds MUSCULOSKELETAL: No cyanosis, or edema. BACK: Nontender without obvious deformity. No CVA tenderness. Hospital Course This is a 89-year-old male. Date of admission 03/18/2016. Date of consultation 03/21/2016. Past medical history includes bilateral cataracts, hypertension, disability, hypothyroidism, insomnia and history of gastric cancer status post partial gastrectomy and history of multiple inguinal hernia repairs. He presented to [facility] on 1/5 with acute onset abdominal pain. No bowel movements for several days. CT abdomen and pelvis revealed there is a small bowel position the right upper quadrant pelvis with a "twisting action likely incarceration. Hospital submitted patient general surgery was consulted. She had NG tube placed in cerebral abdominal exams and x-rays performed. Patient's abdominal pain persisted of nausea and vomiting. The patient eventually aborted with Dr. Cordon. Patient underwent exploratory laparoscopy/lyse adhesions with small bowel's resection secondary to ischemic jejunum loop an intestinal hernia. 2600 crystalloid. Minimal blood loss. 250 cc urine output. Patient has been on Levaquin/Flagyl since/5D UTI. This be continued. Patient is currently arousable on the ventilator. Multiple failures to extubate - Trach 03/29 03/30: Gas exchange improved. 03/31: Improved hemodynamics. Retaining fluid. 04/01: Start Lasix. Investigate asystolic episodes. 04/02: Diuretics increased, follow lytes. CVL 12 days, replace. Reculture sputum , d/c vanc if Staph minimal. 04/03: Continue aggressive diuresis as tolerated. Pleural effusions increasing. Glucose intolerance worse, will add Levemir BID to SSI. 04/04: Good response to BID lasix overnight, encouraging. Fluid balance made difficult by several antibiotics but we are making headway. 04/05: Continue aggressive diuresis; try to diurese off the pleural effusions and peripheral edema. 04/05: TF diet. Edematous with small pleural effusions - responding well to BID lasix. Pt Condition on Discharge: Fair Discharge Disposition: Trnsfr to Other Facility Discharge Instructions DIET: Follow Instructions for: Full Liquid Diet Activities you can perform: Full Weight Bearing Activities to Avoid: Concussion Sports, Contact Sports, Lifting/Bending, Weight Bearing, Strenuous Activity, Friction-Radiation Site, Driving, Sexual Activity Victoriano Melgar MD Apr 05, 2016 13:25
[2016-04-07] MEDS ORDERED: PHARMACY ORDERED LAB XX ONE (16:45)
== END 2016-04-05 17:57 | disposition short-term general hospital (02) | DRG 3 ==
LOC: NEDAMB 15:08 → NEDA 17:39 → NEDH 21:39 → N07B 03-19 17:12 → N03B 03-21 11:56
PROVIDERS: ADMIT Internal Medicine Critical Care Medicine; ATTEND Internal Medicine Critical Care Medicine
PROC: 0DBA0ZX Excision of Jejunum, Open Approach, Diagnostic (ICD-10-PCS; 2016-03-21)
PROC: 02HV33Z Insertion of Infusion Device into Superior Vena Cava, Percutaneous Approach (ICD-10-PCS; 2016-03-21)
PROC: B543ZZA Ultrasonography of Right Jugular Veins, Guidance (ICD-10-PCS; 2016-03-21)
PROC: 0DN80ZZ Release Small Intestine, Open Approach (ICD-10-PCS; principal; 2016-03-21 11:45)
PROC: 5A1955Z Respiratory Ventilation, Greater than 96 Consecutive Hours (ICD-10-PCS; 2016-03-24)
PROC: 0BH17EZ Insertion of Endotracheal Airway into Trachea, Via Natural or Artificial Opening (ICD-10-PCS; 2016-03-24)
PROC: 0B968ZX Drainage of Right Lower Lobe Bronchus, Via Natural or Artificial Opening Endoscopic, Diagnostic (ICD-10-PCS; 2016-03-24)
PROC: 0B948ZX Drainage of Right Upper Lobe Bronchus, Via Natural or Artificial Opening Endoscopic, Diagnostic (ICD-10-PCS; 2016-03-24)
PROC: 0B938ZX Drainage of Right Main Bronchus, Via Natural or Artificial Opening Endoscopic, Diagnostic (ICD-10-PCS; 2016-03-24)
PROC: 0B113F4 Bypass Trachea to Cutaneous with Tracheostomy Device, Percutaneous Approach (ICD-10-PCS; 2016-03-29)
PROC: 0BJ08ZZ Inspection of Tracheobronchial Tree, Via Natural or Artificial Opening Endoscopic (ICD-10-PCS; 2016-03-29)
DX: K56.5 Intestinal adhesions [bands] with obstruction (postinfection) (principal); K55.029 Acute infarction of small intestine, extent unspecified; J15.212 Pneumonia due to Methicillin resistant Staphylococcus aureus; J90 Pleural effusion, not elsewhere classified; N39.0 Urinary tract infection, site not specified; N17.9 Acute kidney failure, unspecified; J96.90 Respiratory failure, unspecified, unspecified whether with hypoxia or hypercapnia; K55.9 Vascular disorder of intestine, unspecified; I48.0 Paroxysmal atrial fibrillation; R00.1 Bradycardia, unspecified; B96.4 Proteus (mirabilis) (morganii) as the cause of diseases classified elsewhere; E11.9 Type 2 diabetes mellitus without complications; E87.5 Hyperkalemia; I10 Essential (primary) hypertension; E03.9 Hypothyroidism, unspecified; E78.00 Pure hypercholesterolemia, unspecified; N40.0 Benign prostatic hyperplasia without lower urinary tract symptoms; R60.1 Generalized edema; J40 Bronchitis, not specified as acute or chronic; E78.5 Hyperlipidemia, unspecified; G62.9 Polyneuropathy, unspecified; G47.00 Insomnia, unspecified; F32.9 Major depressive disorder, single episode, unspecified; H26.101 Unspecified traumatic cataract, right eye; H35.30 Unspecified macular degeneration; M17.0 Bilateral primary osteoarthritis of knee; Z79.84 Long term (current) use of oral hypoglycemic drugs; Z90.3 Acquired absence of stomach [part of]; Z85.46 Personal history of malignant neoplasm of prostate; Z85.028 Personal history of other malignant neoplasm of stomach; Z85.828 Personal history of other malignant neoplasm of skin; Z86.010 Personal history of colon polyps
CPT/HCPCS: 31500; 31624; 36430; 36600; 71010; 74000; 74020; 74176; 74177; 76937; 80048; 80053; 80202; 81001; 82533; 82550; 82565; 82805; 82948; 83605; 83690; 83735; 83880; 84100; 84132; 84155; 84484; 85007; 85014; 85018; 85025; 85027; 85610; 86403; 86850; 86900; 86901; 86920; 87015; 87070; 87077; 87086; 87102; 87116; 87147; 87186; 87205; 87206; 87493; 87641; 88307; 93005; 93306; 94002; 94003; 94150; 94640; 94664; 96374; 96375; J0171; J0282; J0330; J0461; J1120; J1450; J1644; J1815; J1940; J1956; J2250; J2270; J2370; J2405; J3010; J3370; J3475; J3480; J7030; J7040; J7050; J7060; J7120; J7608; P9016; P9045; P9047; Q9967